=== PATIENT | female | born 1950 | race Caucasian/White ===

== ENCOUNTER → 2019-02-26 | Outpatient (CLI) | payer MEDICARE ==
--- NOTE | 2019-02-27 15:38 | CT ---
EXAMINATION TYPE: CT neck chest without con DATE OF EXAM: 02/26/2019 COMPARISON: None HISTORY: J44.9, R13.10, E04.9 CT DLP: 809 mGycm CONTRAST: Patient injected with 0 mL of Isovue 300. TECHNIQUE: Axial images at 3 mm thick sections. Reconstructed images in the coronal plane and sagitt al plane are reviewed. FINDINGS: Limited CT sections are obtained the lung apices. Left apical mass is present. See CT ches t same date. Port below. CT neck: The torus tubarius and fossa of Rosenmuller are normal. Clinical Documentation Nurse spaces are normal. Para nasal sinuses and mastoid air cells are clear. Parotid glands appear normal and symmetrical. Submandibular glands, are normal. There is a 2.4 cm m ass in the left parapharyngeal space compatible with a large lymph node. A few small scattered lymph nodes are present. There is a posterior triangle lymph node which is enlarged posterior to the sterno cleidomastoid muscle with a transverse dimension 1.6 cm which is enlarged. Series 18 image 51. Latera l left supraclavicular adenopathy is present measuring 1.8 cm. Series 18 image 45. The hypopharynx appears within normal limits. Vocal cord level appear symmetrical. Artery is displaced by a large left apical mass and left supraclavicular lymph node Osseous structures are normal. IMPRESSIONS: 1. Left neck supraclavicular adenopathy extending towards the skull base. 2. Left apical mass. EXAMINATION TYPE: CT neck chest without con DATE OF EXAM: 02/26/2019 COMPARISON: None HISTORY: J44.9, R13.10, E04.9 CT DLP: 809 mGycm, Automated exposure control for dose reduction was used. CONTRAST: Performed injected with 0 mL of Isovue 300. TECHNIQUE: Axial images were obtained at 5 mm thick sections. Reconstructed images are reviewed on [facility] computer in the coronal plane. FINDINGS: Portion of the thyroid visualized is normal. Adjacent to the left lobe thyroid is a markedl y enlarged soft tissue density likely a lymph node measuring 4.1 cm in AP dimension. Series 7 image 6 . There is a large left anterior medial lung mass extending into the mediastinum. This is adjacent to t aortic arch and appears to extend through the aortopulmonic window and this is estimated to measur e 9.0 cm transverse by 11.7 cm AP by 1.7 cm in craniocaudal dimension. There is a 1.0 cm pretracheal lymph node evident. A 0.9 cm lymph node is in the pretracheal space cl oser to the yony. A 1.5 cm lymph node is in the subcarinal region. Studies without oral contrast li miting evaluation for hilar adenopathy. Some mild right apical thickening is present. There is a 0.5 cm pleural-based nodule in the periphery of the posterior lateral left apex. Series 8 image 11. Emphysematous changes are. The ascending aorta diameter at the level of the main pulmonary artery is 2.1 cm. The main pulmonary artery diameter at the bifurcation is 2.[address] sections are obtained through the upper abdomen. Abdomen is essentially unremarkable. IMPRESSIONS: 1. Large left apical mass with extension into the mediastinum. Mediastinal lymphadenopathy appears to be present. Findings are suspicious for neoplasm with metastatic disease. 2. Large left supraclavicular adenopathy.
== END | disposition home or self-care (01) ==
LOC: RADCTMAIN 15:35
PROVIDERS: ATTEND Family Medicine
DX: R59.0 Localized enlarged lymph nodes (principal); R13.10 Dysphagia, unspecified; J44.1 Chronic obstructive pulmonary disease with (acute) exacerbation
CPT/HCPCS: 70490; 71250

== ENCOUNTER 2019-03-09 01:26 | Inpatient (IN) | payer MEDICARE ==
[2019-03-09] MEDS ORDERED: SODIUM CHLORIDE 0.9% 1,000 ML IV STA (01:46)
--- NOTE | 2019-03-09 01:49 | ED ---
General Adult HPI - General Chief complaint: Weakness Stated complaint: Abdominal pain; weakness Time Seen by Provider: 03/09/19 01:36 Source: patient, EMS Mode of arrival: EMS Limitations: no limitations - History of Present Illness Initial comments: Dictation was produced using [employer] dictation software. please excuse any grammatical, word or spelling errors. Chief Complaint: 68-year-old female presents with shortness of breath, nausea vomiting diarrhea and epigastric abdominal pain the last few weeks. History of Present Illness: 68-year-old female she presents with several days of shortness of breath, worsening generalized weakness nausea vomiting and abdominal pain. Patient states that she was brought here by EMS. Her son called EMS. Patient states that she was in bed and felt too weak and unable to get up. Patient reports epigastric abdominal pain nausea and vomiting. She states her emesis is nonbilious not bloody. Patient also claims of shortness of breath. Patient has a history of COPD. She denies any other comorbidities. Denies any focal neurologic deficits. The ROS documented in this emergency department record has been reviewed and confirmed by me. Those systems with pertinent positive or negative responses have been documented in the HPI. All other systems are other negative and/or noncontributory. PHYSICAL EXAM: General Impression: Alert and oriented x3, not in acute distress HEENT: Normocephalic atraumatic, extra-ocular movements intact, pupils equal and reactive to light bilaterally, mucous membranes moist. Cardiovascular: Heart regular rate and rhythm, S1&S2 audible, no murmurs, rubs or gallops Chest: Diminished lung sounds on the left Abdomen: Bowel sounds present, abdomen soft, tenderness to the bilateral upper quadrants worse in the epigastric area, Musculoskeletal: Pulses present and equal in all extremities, no peripheral edema Motor: no focal deficits noted Neurological: CN II-XII grossly intact, no focal motor or sensory deficits noted Skin: Intact with no visualized rashes ED course: 68-year-old female presents with multiple complaints. Her chief complaints today are shortness of breath, generalized weakness nausea vomiting and abdominal pain. Upon arrival shows heart rate of 120, rest of vital signs within acceptable limits. Return evaluation obtained. Mild leukocytosis of 11.5, coag panel unremarkable. Metabolic panel is within acceptable limits. Thyroid studies are normal. Chest x-ray shows large mass at the left pulmonary hilum with malignancy that appears worse compared to last exam. Computed tomography scan just was ordered showing large left-sided chest mass. Patient has not received treatment for this mass. Clinical presentation we'll have patient admitted with consultation to pulmonology and oncology. - Related Data Home Medications Medication Instructions Recorded Confirmed Albuterol Inhaler [Ventolin Hfa 1 - 2 puff INHALATION BID 10/31/14 12/23/14 Inhaler] Fluticasone/Salmeterol [Advair 1 puff INHALATION BID 10/31/14 12/23/14 250-50 Diskus] Albuterol Nebulizer(Dose Unknown) 1 applicate INHALATION Q6HR PRN 12/09/14 12/23/14 Prevacid (Unknown Dose) 1 tab PO DIRECTED PRN 12/22/14 12/23/14 Previous Rx's Medication Instructions Recorded HYDROcodone/APAP 7.5-325MG [[place] 1 each PO Q4H PRN #60 tab 12/23/14 7.5] Allergies Allergy/AdvReac Type Severity Reaction Status Date / Time egg Allergy Nausea Verified 12/22/14 08:49 Penicillins Allergy Dyspnea Verified 12/22/14 08:49 Iodinated Contrast Media AdvReac Unknown Verified 03/09/19 03:29 Review of Systems ROS Statement: Those systems with pertinent positive or pertinent negative responses have been documented in the HPI. ROS Other: All systems not noted in ROS Statement are negative. Past Medical History Past Medical History: COPD History of Any Multi-Drug Resistant Organisms: None Reported Additional Past Surgical History / Comment(s): "i had jaw surgery" Past Anesthesia/Blood Transfusion Reactions: No Reported Reaction Past Psychological History: No Psychological Hx Reported Smoking Status: Former smoker Past Alcohol Use History: None Reported Past Drug Use History: None Reported General Exam Limitations: no limitations Course Vital Signs 03/09/19 03/09/19 01:32 03:39 Temperature 97.8 F Pulse Rate 120 H 107 H Respiratory 18 19 Rate Blood Pressure 104/64 97/58 O2 Sat by Pulse 92 L 95 Oximetry Medical Decision Making - Lab Data Result diagrams: 03/09/19 02:32 03/09/19 02:32 Lab Results 03/09/19 03/09/19 03/09/19 Range/Units 02:32 02:32 02:32 WBC 11.5 H (3.8-10.6) k/uL RBC 4.85 (3.80-5.40) m/uL Hgb 14.2 (11.4-16.0) gm/dL Hct 45.3 (34.0-46.0) % MCV 93.3 (80.0-100.0) fL MCH 29.2 (25.0-35.0) pg MCHC 31.3 (31.0-37.0) g/dL RDW 13.5 (11.5-15.5) % Plt Count 266 (150-450) k/uL Neutrophils % 78 % Lymphocytes % 9 % Monocytes % 8 % Eosinophils % 1 % Basophils % 2 % Neutrophils # 9.0 H (1.3-7.7) k/uL Lymphocytes # 1.0 (1.0-4.8) k/uL Monocytes # 0.9 (0-1.0) k/uL Eosinophils # 0.2 (0-0.7) k/uL Basophils # 0.2 (0-0.2) k/uL PT 11.6 (9.0-12.0) sec INR 1.1 (<1.2) APTT 25.6 (22.0-30.0) sec Sodium 137 (137-145) mmol/L Potassium 4.6 (3.5-5.1) mmol/L Chloride 103 (98-107) mmol/L Carbon Dioxide 22 (22-30) mmol/L Anion Gap 12 mmol/L BUN 17 (7-17) mg/dL Creatinine 0.62 (0.52-1.04) mg/dL Est GFR (CKD-EPI)AfAm >90 (>60 ml/min/1.73 sqM) Est GFR (CKD-EPI)NonAf >90 (>60 ml/min/1.73 sqM) Glucose 110 H (74-99) mg/dL Calcium 9.6 (8.4-10.2) mg/dL Magnesium 2.0 (1.6-2.3) mg/dL Total Bilirubin 1.0 (0.2-1.3) mg/dL AST 98 H (14-36) U/L ALT 29 (9-52) U/L Alkaline Phosphatase 128 H (38-126) U/L Troponin I (0.000-0.034) ng/mL Total Protein 7.4 (6.3-8.2) g/dL Albumin 3.4 L (3.5-5.0) g/dL TSH (0.465-4.680) mIU/L 03/09/19 03/09/19 Range/Units 02:32 02:32 WBC (3.8-10.6) k/uL RBC (3.80-5.40) m/uL Hgb (11.4-16.0) gm/dL Hct (34.0-46.0) % MCV (80.0-100.0) fL MCH (25.0-35.0) pg MCHC (31.0-37.0) g/dL RDW (11.5-15.5) % Plt Count (150-450) k/uL Neutrophils % % Lymphocytes % % Monocytes % % Eosinophils % % Basophils % % Neutrophils # (1.3-7.7) k/uL Lymphocytes # (1.0-4.8) k/uL Monocytes # (0-1.0) k/uL Eosinophils # (0-0.7) k/uL Basophils # (0-0.2) k/uL PT (9.0-12.0) sec INR (<1.2) APTT (22.0-30.0) sec Sodium (137-145) mmol/L Potassium (3.5-5.1) mmol/L Chloride (98-107) mmol/L Carbon Dioxide (22-30) mmol/L Anion Gap mmol/L BUN (7-17) mg/dL Creatinine (0.52-1.04) mg/dL Est GFR (CKD-EPI)AfAm (>60 ml/min/1.73 sqM) Est GFR (CKD-EPI)NonAf (>60 ml/min/1.73 sqM) Glucose (74-99) mg/dL Calcium (8.4-10.2) mg/dL Magnesium (1.6-2.3) mg/dL Total Bilirubin (0.2-1.3) mg/dL AST (14-36) U/L ALT (9-52) U/L Alkaline Phosphatase (38-126) U/L Troponin I <0.012 (0.000-0.034) ng/mL Total Protein (6.3-8.2) g/dL Albumin (3.5-5.0) g/dL TSH 2.410 (0.465-4.680) mIU/L Disposition Clinical Impression: Dyspnea Disposition: ADMITTED IP TO THIS HOSP Referrals: Ghanshyam Romero DO [Primary Care Provider] - 1-2 days Decision Time: 04:24
[2019-03-09] MEDS ORDERED: RX INFO: IV CONTRAST WAS GIVEN 1 EACH MISC MISCELLANE PRN (02:14)
--- NOTE | 2019-03-09 02:23 | XR ---
EXAMINATION TYPE: XR chest 2V DATE OF EXAM: 03/09/2019 COMPARISON: 10/16/2018 HISTORY: Difficulty breathing TECHNIQUE: Frontal and lateral views of the chest are obtained. FINDINGS: There is significant widening of the mediastinum with increased density obscuring the aort ic arch. There is left pleural effusion. There is large masslike density at the left pulmonary hilum. This extends into the left upper lobe. The right lung is fairly clear. There is mild pleural thicken ing at the lung apices unchanged. IMPRESSION: Large mass at the left pulmonary hilum consistent with malignancy that is a change alma red to last exam. No heart failure. Small left pleural effusion and left basilar atelectasis is new c ompared to last exam.
[2019-03-09 02:45] LABS: Basophils # (A) 0.2 k/uL (0-0.2); Basophils % (A) 2 %; Eosinophils # (A) 0.2 k/uL (0-0.7); Eosinophils % (A) 1 %; HCT 45.3 % (34.0-46.0); HGB 14.2 gm/dL (11.4-16.0); Lymphocytes % (A) 9 %; MCH 29.2 pg (25.0-35.0); MCHC 31.3 g/dL (31.0-37.0); MCV 93.3 fL (80.0-100.0); Mean Platelet Volume 7.1; Monocytes # (A) 0.9 k/uL (0-1.0); Monocytes % (A) 8 %; Neutrophils % (A) 78 %; Platelet Count 266 k/uL (150-450); RBC 4.85 m/uL (3.80-5.40); RDW 13.5 % (11.5-15.5); WBC 11.5 k/uL (3.8-10.6)
[2019-03-09 02:54] LABS: African American GFR (CKD) >90 (>60 ml/min/1.73 sqM); Albumin 3.4 g/dL (3.5-5.0); Anion Gap 12 mmol/L; Blood Urea Nitrogen 17 mg/dL (7-17); Calcium 9.6 mg/dL (8.4-10.2); Carbon Dioxide 22 mmol/L (22-30); Chloride 103 mmol/L (98-107); Glucose 110 mg/dL (74-99); Sodium 137 mmol/L (137-145); Total Protein 7.4 g/dL (6.3-8.2)
[2019-03-09 03:05] LABS: INR 1.1 (<1.2); Partial Thromboplastin Time 25.6 sec (22.0-30.0); Prothrombin Time 11.6 sec (9.0-12.0)
[2019-03-09 03:22] LABS: ALT 29 U/L (9-52); AST 98 U/L (14-36); Alkaline Phosphatase 128 U/L (38-126); Potassium 4.6 mmol/L (3.5-5.1)
[2019-03-09] MEDS ORDERED: diphenhydrAMINE 50 MG/ML 1 ML VIAL IVP STA ×2 (03:29→10:41)
[2019-03-09] MEDS ORDERED: methylPREDNISolone SOD SUCCI 125 MG/2 ML VIAL IV STA ×2 (03:30→10:41)
[2019-03-09] MEDS ORDERED: FAMOTIDINE 20 MG/2 ML VIAL IV STA ×2 (03:30→10:41)
--- NOTE | 2019-03-09 04:14 | CT ---
EXAMINATION TYPE: CT chest w con DATE OF EXAM: 03/09/2019 COMPARISON: HISTORY: Evaluate mass, Sob, Chest Pain CT DLP: 328.30 mGycm Automated exposure control for dose reduction was used. CONTRAST: CT scan of the chest is performed with IV Contrast, patient injected with 100 mL of Isovue 300. FINDINGS: There is a 9.6 x 13.5 cm mass involving the left side of the mediastinum extending from the left lung apex to the left pulmonary hilum. There is encasement of the left subclavian artery and the left car otid artery. There is some tracheal deviation slightly to the right side. There is encasement of the trachea. There is subcarinal mass extension. There is narrowing of the left upper and left lower lobe pulmonary arteries encased by tumor mass. There is extensive infiltrate in the lingula left upper lo be. There is left pleural effusion. There is diffuse pulmonary emphysema. There is mild pleural thick ening at the right lung apex. There is no evidence of pulmonary mass on the right side. There is narr owing of the left upper lobe bronchus which appears essentially occluded. There is also significant n arrowing of the bronchus in the lingula left upper lobe. I see no filling defects in the pulmonary ar teries. Thoracic aorta shows no aneurysm or dissection. There is elevated left diaphragm consistent w ith atelectasis. There is no adrenal mass. Mass extends into the base of the neck on the left side. S uperior extent of the mass not included on the exam. The bony thorax appears intact. There are multiple low-density areas throughout the visualized liver consistent with metastatic disea se. The largest is in the left hepatic lobe and measures 8 cm. IMPRESSION: Large left side chest mass consistent with primary tumor probably of the left upper lobe with encasement of the vessels as above. Also consider lymphoma. This appears unchanged compared to CT scan 02/26/2019. Hepatic metastatic disease.
[2019-03-09] MEDS ORDERED: NALOXONE 0.4 MG/ML 1 ML VIAL IV PRN (04:20)
[2019-03-09] MEDS: SODIUM CHLORIDE 0.9% 1,000 ML IV SCH (05:01)
--- NOTE | 2019-03-09 09:54 | P.CONS ---
History of Present Illness - Reason for Consult Consult date: 03/09/19 lung mass Requesting physician: Osmin Gregory - Chief Complaint SOB, vomiting - History of Present Illness Ms. Tellez is a very pleasant 68-year-old female patient of primary care Dr. Romero who has COPD, quitting smoking 20 years ago after smoking for about 25 years. She states she noticed a change in her health about 8 months ago. These were vague, mild symptoms including shortness of breath, fatigue, occasional upset stomach. In the last 3 months symptoms became persistent and progressive including dysphagia and occasional choking on foods and fluids, her voice become hoarse and now is only a whisper, she has lost 70 pounds. RAJAN/shortness of breath and vomiting worsened over the last several days and brought her to the hospital for evaluation. She was being worked up out patient for her complaints. On 02/[address] of the neck and chest revealing a JOHANN lung mass extending into the mediastinum, supraclavicular, and mediastinal adenopathy. I believe that were already plans for biopsy. CT of the chest on admission shows a 9.6 x 13.5 cm mass in the left chest. CBC and CMP are unremarkable. Vital signs are stable. Patient denies any chills, chest pain, hemoptysis, abdominal pain or cramping, acute changes in her bowel or bladder habits, swelling in the legs, unusual bruising, new or unexplained pains. Patient states she does feel better than on admit. Review of Systems 14 point review of systems is negative except as stated in HPI Past Medical History Past Medical History: COPD Additional Past Medical History / Comment(s): emphysema History of Any Multi-Drug Resistant Organisms: None Reported Past Surgical History: Cholecystectomy Additional Past Surgical History / Comment(s): "i had jaw surgery", cataracts Past Anesthesia/Blood Transfusion Reactions: No Reported Reaction Past Psychological History: No Psychological Hx Reported Smoking Status: Former smoker Past Alcohol Use History: None Reported Past Drug Use History: None Reported Medications and Allergies Home Medications Medication Instructions Recorded Confirmed Type No Known Home Medications 03/09/19 03/09/19 History Allergies Allergy/AdvReac Type Severity Reaction Status Date / Time egg Allergy Nausea Verified 03/09/19 08:00 Penicillins Allergy Dyspnea Verified 03/09/19 08:00 Iodinated Contrast Media AdvReac Unknown Verified 03/09/19 08:00 Physical Exam Vitals: Vital Signs Temp Pulse Pulse Resp BP BP Pulse Ox 03/09/19 07:00 97.9 F 101 H 16 111/72 95 03/09/19 05:22 97.7 F 103 H 20 108/73 95 03/09/19 05:01 99 18 101/66 98 03/09/19 03:39 107 H 19 97/58 95 03/09/19 01:32 97.8 F 120 H 18 104/64 92 L Intake and Output 03/08/19 03/09/19 03/09/19 22:59 06:59 14:59 Intake Total 200 Balance 200 Intake: Oral 200 Other: Weight 72.575 kg - Constitutional General appearance: cooperative, no acute distress, obese - EENT Eyes: anicteric sclerae, edentulous, EOMI ENT: hearing grossly normal, normal oropharynx - Neck Left posterior cervical lymphadenopathy, likely several, 2 cm, hard, fixed area Neck: lymphadenopathy - Respiratory Respiratory: right: diminished (Consistent with COPD) - Cardiovascular Rhythm: regular Heart sounds: normal: S1, S2 Abnormal Heart Sounds: no systolic murmur, no diastolic murmur, no rub, no S3 Gallop, no S4 Gallop, no click, no other leg Peripheral Edema: bilateral: None - Gastrointestinal General gastrointestinal: no absent bowel sounds, no decreased bowel sounds, no distended, no hepatomegaly, no hyperactive bowel sounds, normal bowel sounds, no organomegaly, no rigid, no scaphoid, soft, no splenomegaly, no tenderness, no umbilical hernia, no ventral hernia - Integumentary Integumentary: normal - Neurologic Suspect vagal nerve impingement based on patient's reported symptoms and loss of voice Neurologic: CNII-XII intact - Musculoskeletal Musculoskeletal: strength equal bilaterally - Psychiatric Psychiatric: A&O x's 3, appropriate affect, intact judgment & insight Results CBC & Chem 7: 03/09/19 02:32 03/09/19 02:32 Labs: Abnormal Lab Results - Last 24 Hours (Table) 03/09/19 03/09/19 Range/Units 02:32 02:32 WBC 11.5 H (3.8-10.6) k/uL Neutrophils # 9.0 H (1.3-7.7) k/uL Glucose 110 H (74-99) mg/dL AST 98 H (14-36) U/L Alkaline Phosphatase 128 H (38-126) U/L Albumin 3.4 L (3.5-5.0) g/dL Chest x-ray: report reviewed CT scan - chest: report reviewed Assessment and Plan (1) Mass of left lung Current Visit: Yes Status: Acute Priority: High Code(s): R91.8 - OTHER NONSPECIFIC ABNORMAL FINDING OF LUNG FIELD SNOMED Code(s): 788653031 (2) Cervical adenopathy Current Visit: Yes Status: Acute Priority: High Code(s): R59.0 - LOCALIZED ENLARGED LYMPH NODES SNOMED Code(s): 466064313 Plan: Dr. Zhao reviewed with the patient that imaging, signs and symptoms on presentation are all very concerning and most suspicious for malignancy. He reviewed the workup to include Pulmonary evaluation and biopsy (from review of the chart it sounds as though this was planned but, unfortunately the patient ended up in the hospital for persistent symptoms), staging MRI of the brain and PET scan outpatient. Due to patient's complaints of difficulty swallowing, the changes in her voice and occasional choking there is concern for possibly vagal nerve impingement from tumor, swallow evaluation is been ordered to determine if there is aspiration and if patient requires a thickened diet. Patient verbalized understanding the plan. Patient does have sons home that can bring her to and from appointments. Case was discussed with Internal Medicine Doctor attests: I performed a history and physical examination of this patient, developed impression and plan of care. Discussed with dictator. I agree with dictators note, documented as a scribe.
[2019-03-09] MEDS ORDERED: IPRATROPIUM-ALBUTEROL 3 ML NEB INHALATION PRN (13:09)
--- NOTE | 2019-03-09 13:13 | P.HPIM ---
History of Present Illness H&P Date: 03/09/19 Chief Complaint: Hoarseness with increased shortness of breath, vomiting This is 68-year-old female, nicotine dependent-meterman for greater than 25 years , history of COPD, emphysema, presented to the ER with worsening shortness of breath, hoarseness, nausea/vomiting, increased weakness times a few days. Reports progressive worsening of dysphagia/choking on both food/liquids, a 70 pound weight loss in the last 3 months, loss of voice now down to a whisper. Denies hemoptysis .Patient recently diagnosed with large left apical mass extending into the mediastinum with mediastinal lymphadenopathy, large left supraclavicular adenopathy per outpatient CT on . PCP had arranged for patient to follow-up with pulmonary for further follow-up including biopsy. Patient had not yet seen pulmonary outpatient. Chest x-ray reported large mass in the left pulmonary hilum with malignancy appearing worse compared to prior exam. CT on admission reported large left-sided chest mass, 9.6X 13.5 cm, consistent with primary tumor of the left upper lobe with encasement of the left subclavian artery, left carotid artery, and trachea with subcarinal mass extension, narrowing of the left upper and left lower lobe pulmonary arteries encased by tumor mass, extensive infiltrate in the left upper lobe lingula, narrowing of the left upper lobe bronchus which appears essentially occluded with significant narrowing of the bronchus in the lingula and left upper lobe. No aneurysm or dissection , elevated left diaphragm consistent with atelectasis , mass extends to the base of the neck, left side. Multiple low-density areas throughout the liver consistent with metastatic disease, largest in the left hepatic lobe measuring 8 cm.Pulmonary and oncology consulted. Speech therapy consulted for swallow evaluation. VSS. Afebrile, mild elevation in WBC, 11.5.CBC, CMP unremarkable with the exception of mild elevation of AST, alk phos. Denies any chest pain, palpitations. Review of Systems ROS Statement: Those systems with pertinent positive or pertinent negative responses have been documented in the HPI. ROS Other: All systems not noted in ROS Statement are negative. Past Medical History Past Medical History: COPD Additional Past Medical History / Comment(s): emphysema History of Any Multi-Drug Resistant Organisms: None Reported Past Surgical History: Cholecystectomy Additional Past Surgical History / Comment(s): "i had jaw surgery", cataracts Past Anesthesia/Blood Transfusion Reactions: No Reported Reaction Past Psychological History: No Psychological Hx Reported Smoking Status: Former smoker Past Alcohol Use History: None Reported Past Drug Use History: None Reported Medications and Allergies Home Medications Medication Instructions Recorded Confirmed Type No Known Home Medications 03/09/19 03/09/19 History Allergies Allergy/AdvReac Type Severity Reaction Status Date / Time egg Allergy Nausea Verified 03/09/19 08:00 Penicillins Allergy Dyspnea Verified 03/09/19 08:00 Iodinated Contrast Media AdvReac Unknown Verified 03/09/19 08:00 Physical Exam Vitals: Vital Signs Temp Pulse Pulse Resp BP BP Pulse Ox 03/09/19 07:00 97.9 F 101 H 16 111/72 95 03/09/19 05:22 97.7 F 103 H 20 108/73 95 03/09/19 05:01 99 18 101/66 98 03/09/19 03:39 107 H 19 97/58 95 03/09/19 01:32 97.8 F 120 H 18 104/64 92 L Intake and Output 03/08/19 03/09/19 03/09/19 22:59 06:59 14:59 Intake Total 200 Balance 200 Intake: Oral 200 Other: Weight 72.575 kg PHYSICAL EXAM: VITAL SIGNS: As above GENERAL: Sitting up in bed, weak appearing, whispering/hoarse HEENT: Conjunctivae normal. eyes normal. Voice hoarse-whispering NECK: No JVD. No thyroid enlargement. Left posterior cervical lymphadenopathy with mild trachea deviation to the right. CARDIOVASCULAR: S1, S2 regular. No murmur RESPIRATION: Breath sounds diminished in the bases. No rhonchi or crackles. No bronchial breathing. ABDOMEN: Soft, nontender . No guarding. no masses palpable. No ascites, No hepatosplenomegaly.Bowel sounds heard. LEGS: No edema. no swelling PSYCHIATRY: Alert and oriented X3, mood and affect normal. NERVOUS SYSTEM: Cranial N 2-12 grossly normal. Moves all 4 limbs. Diffuse weakness No focal deficits. Strength and sensation grossly intact. Skin: no rash Results CBC & Chem 7: 03/09/19 02:32 03/09/19 02:32 Labs: Abnormal Lab Results - Last 24 Hours (Table) 03/09/19 03/09/19 Range/Units 02:32 02:32 WBC 11.5 H (3.8-10.6) k/uL Neutrophils # 9.0 H (1.3-7.7) k/uL Glucose 110 H (74-99) mg/dL AST 98 H (14-36) U/L Alkaline Phosphatase 128 H (38-126) U/L Albumin 3.4 L (3.5-5.0) g/dL Thrombosis Risk Factor Assmnt - Choose All That Apply Any of the Below Risk Factors Present?: Yes Each Factor Represents 1 point: Abnormal pulmonary function (COPD), Medical pt on bed rest, Obesity (BMI >25) Other Risk Factors: Yes Each Risk Factor Represents 2 Points: Age 61-74 years Other congenital or acquired thrombophilia - If yes, enter type in comment: No Thrombosis Risk Factor Assessment Total Risk Factor Score: 5 Thrombosis Risk Factor Assessment Level: High Risk Assessment and Plan Assessment: -Dyspnea, large left-sided chest mass consistent with primary tumor of left upper lobe, with suspected metastases to the liver as per CT -Cervical adenopathy -Acute on chronic COPD, emphysema -Acute hypoxic respiratory failure secondary to the above -Ongoing, long-term nicotine dependence -Dysphagia, suspect tumor involvement -Hypoalbuminemia Plan: Continue current medication regime ,monitoring and symptomatic treatment. Evaluated by oncology with recommendations noted and appreciated. Pulmonary consult in place / biopsy pending. Speech therapy consulted for swallow evaluation. Home meds currently not listed.Outpatient MRI of the brain and PET scan. Prognosis guarded given multiple complex medical issues. The impression and plan of care has been dictated as directed. : I performed a history and examination of this patient, discussed the same with the dictator. I agree with the dictator's note ,documented as a scribe. Any additional findings or plans will be noted.
--- NOTE | 2019-03-09 15:45 | US ---
EXAMINATION TYPE: US thyroid st tissue head/neck DATE OF EXAM: 03/09/2019 COMPARISON: CT chest 03/09/2019, CT chest and neck 02/26/2019 CLINICAL HISTORY: left neck u/s to assess mass for biopsy.. Neck neck mass lateral to thyroid Left neck scanned. Large lobular appearing vascular mass seen lateral to CCA - 6.8 x 4.0 x 4.6 cm. Suboptimal visualization of inferior aspect of mass due to location. Contralateral image taken. IMPRESSION: 1. Large mass lateral to the left common carotid artery
[2019-03-09] MEDS: IPRATROPIUM-ALBUTEROL 3 ML NEB INHALATION SCH ×2 (16:21→19:33)
--- NOTE | 2019-03-09 16:43 | P.CNPUL ---
History of Present Illness Consult date: 03/09/19 Requesting physician: Johnny Lopez Reason for consult: dyspnea, lung mass, abnormal CXR/CT Chief complaint: Shortness of breath, nausea, vomiting, diarrhea, weight loss, pulmonary mas History of present illness: This is a 68-year-old white female patient of Dr. Romero with past medical history of COPD, who is a former smoker, who came into the hospital on 03/09/2019 at 1:30 in the morning per EMS for complaints of increasing shortness of breath, nausea, vomiting diarrhea, epigastric abdominal discomfort. In addition patient reports significant weight loss, 70 pounds since November 2018, voice hoarseness, and increasing left neck mass. Patient reports inability to eat, because she is having choking episodes with all consistencies, she reports sensation of food getting stuck in her esophagus, and has been nauseous. She has a very weak cough, and her voice is now a whisper. Chest x-ray was completed on 03/09/2019 showing a large mass at the left pulmonary hilum consistent with malignancy which was a change from her previous chest x-ray from September 2018. Also showed small left pleural effusion and left basilar atelectasis. CT of the chest with contrast was completed showing large left-sided chest mass consistent with primary tumor in the left upper lobe with encasement of the pulmonary arteries. There is extensive infiltrate in the lingula left upper lobe, and left pleural effusion. And at there is a background of diffuse pulmonary emphysema. Ears no evidence of pulmonary mass on the right side. Lab work was reviewed showing white blood cell count of 11.5, hemoglobin of 14.2, relation profile was within normal limits, electrolytes and renal profile were within normal limits. Troponin was negative. Patient is afebrile, she is on 2 L of oxygen with a pulse ox of 96%, asked to see the patient in evaluation for the left upper lobe mass Review of Systems All systems: negative Constitutional: Reports anorexia, Reports poor appetite, Reports weakness, Reports weight loss, Denies chills, Denies fever Eyes: denies blurred vision, denies pain Ears, nose, mouth and throat: Reports dysphagia, Reports hoarseness, Reports neck fullness/pressure, Reports voice changes, Denies headache, Denies sore throat Cardiovascular: Denies chest pain, Denies shortness of breath Respiratory: Reports dyspnea, Denies cough Gastrointestinal: Denies abdominal pain, Denies diarrhea, Denies nausea, Denies vomiting Genitourinary: Denies dysuria, Denies hematuria Musculoskeletal: Denies myalgias Integumentary: Denies pruritus, Denies rash Neurological: Denies numbness, Denies weakness Psychiatric: Denies anxiety, Denies depression Endocrine: Reports weight change, Denies fatigue Past Medical History Past Medical History: COPD Additional Past Medical History / Comment(s): emphysema History of Any Multi-Drug Resistant Organisms: None Reported Past Surgical History: Cholecystectomy Additional Past Surgical History / Comment(s): "i had jaw surgery", cataracts Past Anesthesia/Blood Transfusion Reactions: No Reported Reaction Past Psychological History: No Psychological Hx Reported Smoking Status: Former smoker Past Alcohol Use History: None Reported Past Drug Use History: None Reported Medications and Allergies Home Medications Medication Instructions Recorded Confirmed Type No Known Home Medications 03/09/19 03/09/19 History Allergies Allergy/AdvReac Type Severity Reaction Status Date / Time egg Allergy Nausea Verified 03/09/19 08:00 Penicillins Allergy Dyspnea Verified 03/09/19 08:00 Iodinated Contrast Media AdvReac Unknown Verified 03/09/19 08:00 Physical Exam Vitals: Vital Signs Temp Pulse Pulse Resp BP BP Pulse Ox 03/09/19 16:15 100 03/09/19 14:55 97.5 F L 113 H 16 107/60 96 03/09/19 07:00 97.9 F 101 H 16 111/72 95 03/09/19 05:22 97.7 F 103 H 20 108/73 95 03/09/19 05:01 99 18 101/66 98 03/09/19 03:39 107 H 19 97/58 95 03/09/19 01:32 97.8 F 120 H 18 104/64 92 L Intake and Output 03/09/19 03/09/19 03/09/19 06:59 14:59 22:59 Intake Total 200 Balance 200 Intake: Oral 200 Other: # Voids 1 Weight 72.575 kg GENERAL EXAM: Alert, pleasant, 68-year-old white female, in 2 L of oxygen and the pulse ox 96%, and patient has evidence of significant voice hoarseness, down to whisper, comfortable in no apparent distress. HEAD: Normocephalic/atraumatic. EYES: Normal reaction of pupils, equal size. Conjunctiva pink, sclera white. NOSE: Clear with pink turbinates. THROAT: No erythema or exudates. NECK: Left posterior cervical lymphadenopathy with mild tracheal deviation to th e right. no JVD, no thyroid enlargement, no adenopathy. CHEST: No chest wall deformity. Symmetrical expansion. LUNGS: Equal air entry with no crackles, wheeze, rhonchi or dullness. Diminished breath sounds at the bases CVS: Regular rate and rhythm, normal S1 and S2, no gallops, no murmurs, no rubs ABDOMEN: Soft, nontender. No hepatosplenomegaly, normal bowel sounds, no guarding or rigidity. EXTREMITIES: No clubbing, no edema, no cyanosis, 2+ pulses and upper and lower extremities. MUSCULOSKELETAL: Muscle strength and tone normal. SPINE: No scoliosis or deformity SKIN: No rashes CENTRAL NERVOUS SYSTEM: Alert and oriented -3. No focal deficits, tone is normal in all 4 extremities. PSYCHIATRIC: Alert and oriented -3. Appropriate affect. Intact judgment and insight. Results - Laboratory Findings CBC and BMP: 03/09/19 02:32 03/09/19 02:32 PT/INR, D-dimer PT 11.6 sec (9.0-12.0) 03/09/19 02:32 INR 1.1 (<1.2) 03/09/19 02:32 Abnormal lab findings: Abnormal Labs 03/09/19 03/09/19 02:32 02:32 WBC 11.5 H Neutrophils # 9.0 H Glucose 110 H AST 98 H Alkaline Phosphatase 128 H Albumin 3.4 L - Diagnostic Findings Chest x-ray: report reviewed, image reviewed CT scan - chest: report reviewed, image reviewed Assessment and Plan Plan: Assessment: #1. Large left upper lung mass suspicious for primary tumor, with encasement of the left lower lobe pulmonary arteries, and narrowing of the left upper lobe bronchus with near occlusion, and significant narrowing of the bronchus and the lingula and the left upper lobe. No evidence of pulmonary embolism, there is elevation of the left diaphragm, and there is extension of the mass into the base of the neck on the left side #2. Multiple low-density areas throughout the visualized liver consistent with metastatic disease with the largest area measuring 8 cm in the left hepatic lobe #3. Left cervical lymphadenopathy #4. Voice hoarseness, intermittent weight loss of 70 pounds in the last 3 months #5. COPD #6. Former smoking history, quit smoking 20 years ago does carry 25 years of smoking #7. Dysphagia Plan: Chest x-ray and CT chest has been reviewed with the patient and her family, and there is evidence of a large left upper lobe lung mass encasing the pulmonary arteries and extension of the tumor to the Left neck and possibility of metastasis to the liver. We will consult interventional radiology for a fine- needle biopsy on the left neck area. We will consult surgery for possibility of insertion of PEG tube in view of patient's dysphagia and significant weight loss, she is being evaluated by speech therapy and she is having coughing and difficulty swallowing. PEG tube will be needed for nutritional support. Medical oncology has been consulted. Patient is unable to lie flat, and for that reason he will be difficult for the patient to lie flat for the bronchoscopy with biopsies, this was discussed with the family and patient and her family are in agreement to proceed with a fine-needle biopsy on the left neck. I performed a history & physical examination of the patient and discussed their management with my nurse practitioner, Shanell Canada. I reviewed the nurse practitioner's note and agree with the documented findings and plan of care. Lung sounds are positive for diminished breath sounds at the bases. The findings and the impression was discussed with the patient. I attest to the documentation by the nurse practitioner. Time with Patient: Greater than 30
[2019-03-10] MEDS: SODIUM CHLORIDE 0.9% 1,000 ML IV SCH (06:47)
[2019-03-10] MEDS: IPRATROPIUM-ALBUTEROL 3 ML NEB INHALATION SCH ×4 (07:50→19:56)
--- NOTE | 2019-03-10 10:35 | P.PN ---
Subjective Progress Note Date: 03/10/19 This is a 68-year-old white female patient of Dr. Romero with past medical histo ry of COPD, who is a former smoker, who came into the hospital on 03/09/2019 at 1:30 in the morning per EMS for complaints of increasing shortness of breath, nausea, vomiting diarrhea, epigastric abdominal discomfort. In addition patient reports significant weight loss, 70 pounds since November 2018, voice hoarseness, and increasing left neck mass. Patient reports inability to eat, because she is having choking episodes with all consistencies, she reports sensation of food getting stuck in her esophagus, and has been nauseous. She has a very weak cough, and her voice is now a whisper. Chest x-ray was completed on 03/09/2019 showing a large mass at the left pulmonary hilum consistent with malignancy which was a change from her previous chest x-ray from September 2018. Also showed small left pleural effusion and left basilar atelectasis. CT of the chest with contrast was completed showing large left-sided chest mass consistent with primary tumor in the left upper lobe with encasement of the pulmonary arteries. There is extensive infiltrate in the lingula left upper lobe, and left pleural effusion. And at there is a background of diffuse pulmonary emphysema. Ears no evidence of pulmonary mass on the right side. Lab work was reviewed showing white blood cell count of 11.5, hemoglobin of 14.2, relation profile was within normal limits, electrolytes and renal profile were within normal limits. Troponin was negative. Patient is afebrile, she is on 2 L of oxygen with a pulse ox of 96%, asked to see the patient in evaluation for the left upper lobe mass On today's evaluation of 03/10/2019 the patient is essentially the same as yesterday. She was having dysphagia. She managed to have some light breakfast earlier today. She did not aspirate. However, the ultimate plan is to proceed with a PEG tube insertion and this will be done by general surgery today. The patient will also have the fine-needle aspirate of the lung mass today. No other active issues for now. She is on 2 L of oxygen. She is awake and alert and she understands was happening and she is very much involved in her care. Objective - Vital Signs Vital signs: Vital Signs Temp 98.2 F 03/10/19 07:00 Pulse 94 03/10/19 08:01 Resp 16 03/10/19 07:00 BP 115/66 03/10/19 07:00 Pulse Ox 96 03/10/19 07:00 Intake & Output 03/09/19 03/10/19 03/10/19 18:59 06:59 18:59 Intake Total 200 220 Balance 200 220 Weight 72.575 kg Intake: Intake, IV Titration 220 Amount Sodium Chloride 0.9% 1, 220 000 ml @ 20 mls/hr IV . Q24H NICHOLAS Rx#:[id number] Oral 200 Other: # Voids 1 - Exam GENERAL EXAM: Alert, pleasant, 68-year-old white female, in 2 L of oxygen and the pulse ox 96%, and patient has evidence of significant voice hoarseness, down to whisper, comfortable in no apparent distress. HEAD: Normocephalic/atraumatic. EYES: Normal reaction of pupils, equal size. Conjunctiva pink, sclera white. NOSE: Clear with pink turbinates. THROAT: No erythema or exudates. NECK: Left posterior cervical lymphadenopathy with mild tracheal deviation to the right. no JVD, no thyroid enlargement, no adenopathy. CHEST: No chest wall deformity. Symmetrical expansion. LUNGS: Equal air entry with no crackles, wheeze, rhonchi or dullness. Diminished breath sounds at the bases CVS: Regular rate and rhythm, normal S1 and S2, no gallops, no murmurs, no rubs ABDOMEN: Soft, nontender. No hepatosplenomegaly, normal bowel sounds, no guarding or rigidity. EXTREMITIES: No clubbing, no edema, no cyanosis, 2+ pulses and upper and lower extremities. MUSCULOSKELETAL: Muscle strength and tone normal. SPINE: No scoliosis or deformity SKIN: No rashes CENTRAL NERVOUS SYSTEM: Alert and oriented -3. No focal deficits, tone is normal in all 4 extremities. PSYCHIATRIC: Alert and oriented -3. Appropriate affect. Intact judgment and i nsight. - Labs CBC & Chem 7: 03/09/19 02:32 03/09/19 02:32 Labs: Microbiology - Last 24 Hours (Table) 03/09/19 02:32 Blood Culture - Preliminary Blood No Growth after 24 hours Assessment and Plan Plan: #1. Large left upper lung mass suspicious for primary tumor, with encasement of the left lower lobe pulmonary arteries, and narrowing of the left upper lobe bronchus with near occlusion, and significant narrowing of the bronchus and the lingula and the left upper lobe. No evidence of pulmonary embolism, there is elevation of the left diaphragm, and there is extension of the mass into the base of the neck on the left side #2. Multiple low-density areas throughout the visualized liver consistent with metastatic disease with the largest area measuring 8 cm in the left hepatic lobe #3. Left cervical lymphadenopathy #4. Voice hoarseness, secondary to vocal cord paralysis #5. COPD #6. Former smoking history, quit smoking 20 years ago does carry 25 years of smoking #7. Dysphagia, likely due to the mass causing vocal cord paralysis and possibly some mass effect on the esophagus causing anatomic obstruction. #8 weight loss and excessive 100 pounds Plan: Proceed with a PEG tube insertion. Proceed with a fine-needle aspirate. Oncology is on the case. We'll continue to follow.
--- NOTE | 2019-03-10 11:27 | P.GSCN ---
<Neema Vides - Last Filed: 03/10/19 11:26> History of Present Illness Consult date: 03/10/19 Reason for Consult: PEG tube insertion Requesting physician: Torri Mendiola History of present illness: CHIEF COMPLAINT: PEG tube insertion HISTORY OF PRESENT ILLNESS: 68-year-old female who presented to emergency room with shortness of breath and epigastric abdominal pain. Patient was found to have a large left-sided chest mass. Patient has been experiencing dysphasia. She reports a 70 pound weight loss since November 2018. She was evaluated by speech therapy who recommended thickened liquid diet. General surgery was consulted for PEG tube placement. PAST MEDICAL HISTORY: See list. PAST SURGICAL HISTORY: See list. SOCIAL HISTORY: No illicit drug use. REVIEW OF SYSTEMS: CONSTITUTIONAL: Denies fever or chills. Reports weight loss. HEENT: Denies blurred vision, vision changes, or eye pain. Reports changes in her voice. CARDIOVASCULAR: Denies chest pain or pressure. RESPIRATORY: Reports shortness of breath prior to hospitalization. GASTROINTESTINAL: Denies abdominal pain. HEMATOLOGIC: Denies bleeding disorders. GENITOURINARY: Denies any blood in urine. SKIN: Denies pruitis. Denies rash. PHYSICAL EXAM: VITAL SIGNS: Reviewed. GENERAL: Well-developed in no acute distress. HEENT: No sclera icterus. Extraocular movements grossly intact. Moist buccal mucosa. Head is atraumatic, normocephalic. Voice is quiet and hoarse. ABDOMEN: Soft. Nondistended. Nontender. NEUROLOGIC: Alert and oriented. LABORATORY DATA: WBC 11.5. Hemoglobin 14.2. Platelet count 266. Potassium 4.6. BUN 17. Creatinine 0.62. Magnesium 2.0. IMAGIN. CT chest: Large left sided chest mass consistent with primary tumor probably of the left upper lobe with encasement of the vessels. Mass extends into the base of the neck on the left side. Multiple low-density areas throughout the visualized liver consistent with metastatic disease. 2. Ultrasound head and neck: Large mass lateral to the left common carotid artery measuring 6.8 x 4.0 x 4.6 cm. ASSESSMENT: 1. Large left lung mass extending into the neck, with encasement of left lower pulmonary arteries, narrowing of the left upper lobe brochus with near occlusion, and significant narrowing of the bronchus and the lingula and the left upper lobe. CT also reveals likely metastasis to the liver 2. Dysphagia 3. Unintentional weight loss, 70 lbs since November PLAN: Discussed PEG with patient at the bedside. She is agreeable to PEG tube but would also like to discuss it further with Dr. Jackson before proceeding. PEG tube tentatively planned for this afternoon. Keep patient NPO Nurse practitioner note has been reviewed by physician. Signing provider agrees with the documented findings, assessment, and plan of care. Past Medical History Past Medical History: COPD Additional Past Medical History / Comment(s): emphysema History of Any Multi-Drug Resistant Organisms: None Reported Past Surgical History: Cholecystectomy Additional Past Surgical History / Comment(s): "i had jaw surgery", cataracts Past Anesthesia/Blood Transfusion Reactions: No Reported Reaction Past Psychological History: No Psychological Hx Reported Smoking Status: Former smoker Past Alcohol Use History: None Reported Past Drug Use History: None Reported - Past Family History Father History Unknown: Yes Family Medical History: Unable to Obtain Medications and Allergies Home Medications Medication Instructions Recorded Confirmed Type No Known Home Medications 03/09/19 03/09/19 History Allergies Allergy/AdvReac Type Severity Reaction Status Date / Time egg Allergy Nausea Verified 03/09/19 08:00 Penicillins Allergy Dyspnea Verified 03/09/19 08:00 Iodinated Contrast Media AdvReac Unknown Verified 03/09/19 08:00 Surgical - Exam Vital Signs Temp Pulse Resp BP Pulse Ox 97.8 F 120 H 18 104/64 92 L 03/09/19 01:32 03/09/19 01:32 03/09/19 01:32 03/09/19 01:32 03/09/19 01:32 Results - Labs 03/09/19 02:32 03/09/19 02:32 Microbiology - Last 24 Hours (Table) 03/09/19 02:32 Blood Culture - Preliminary Blood No Growth after 24 hours <Sid Jackson - Last Filed: 03/10/19 14:31> History of Present Illness History of present illness: As above. Patient with significant weight loss as a result of newly identified mass suspicious for malignancy. Patient may have some component of extrinsic compression on the esophagus contributing to her weight loss. Options were reviewed with the patient and her family. We'll tentatively plan EGD and PEG tube placement tomorrow. Patient informed that navigation into the stomach through the esophagus may not be possible given the extrinsic compression. Risks of bleeding, infection, catheter malfunction, bowel injury, inability to place catheter, aspiration, anesthesia related complications were reviewed. She understands and wishes to proceed. Surgical - Exam Vital Signs Temp Pulse Resp BP Pulse Ox 97.8 F 120 H 18 104/64 92 L 03/09/19 01:32 03/09/19 01:32 03/09/19 01:32 03/09/19 01:32 03/09/19 01:32 Results - Labs 03/09/19 02:32 03/09/19 02:32 Microbiology - Last 24 Hours (Table) 03/09/19 02:32 Blood Culture - Preliminary Blood No Growth after 24 hours
--- NOTE | 2019-03-10 14:01 | US ---
ULTRASOUND GUIDED CORE BIOPSY LEFT NECK MASS: CLINICAL HISTORY: Chest and neck mass FINDINGS: The procedure was explained to the patient. The risks, complications, benefits and alternatives were discussed and any questions were answered. Informed consent was obtained. Patient was placed supin e on the ultrasound table and prepped and draped in the usual sterile fashion. Utilizing a 18-gauge core biopsy needle to passes were made into the large left neck mass. No postprocedural complications . Patient was stable throughout the procedure. Pathology is pending. All elements of maximal barrier and sterile technique were utilized. IMPRESSION: 1. Successful ultrasound guided core biopsy of a left neck mass.
--- NOTE | 2019-03-10 14:28 | CDI ---
Documentation Clarification Form Date: 03/10/2019 2:00:07 PM From: Ashley Coats RN, CCDS Admit Date: 03/09/2019 4:20:00 AM Patient Name: Heena Tellez Visit Number: [id number] Discharge Date: ATTENTION: The Clinical Documentation Specialists (CDI) and [facility] Coding Staff appreciate your assistance in clarifying documentation. Please respond to the clarification below the line at the bottom and electronically sign. The CDI & [facility] Coding staff will review the response and follow-up if needed. Please note: Queries are made part of the Legal Health Record. If you have any questions, please contact the author of this message via ITS. Dr. Ghanshyam Romero Malnutrition has been documented in the nutritional assessment and additional documentation is needed from the attending. History/Risk Factors: Left lung Mass, Possible mets to liver. COPD, Former smoker Clinical Indicators: 68-year-old female present with complaints of nausea, vomiting, diarrhea, abdominal pain, 56 lb (24 % UBW) weight loss in 3 months reported. She reports difficulty chewing and swallowing. CT scan of neck shows a left lung mass extending into neck, possible vagal nerve impairment. Her voice is hoarse voice due to vocal cord paralysis. Labs: Albumin 3.4, Protein 7.4, AST 98, Alkaline Phosphatase 128 Current BMI: 28.0 Insufficient energy intake: Yes Weight Loss: Reported 70 lbs in 3 months Treatment: NPO Dietary Consult: Yes Malnutrition, Severe protein-calorie in the content of chronic illness Tube feeding per orders Lab monitoring: CBC, Lytes, BUN, CR, Weights, free water flushes PEG Tube In your professional opinion, can you please clarify if these findings signify one of the following conditions? Mild Protein-Calorie Malnutrition Moderate Protein-Calorie Malnutrition Severe Protein-Calorie Malnutrition Malnutrition, unspecified Malnutrition following GI surgery Other condition, please specify _ Unable to determine (Last Revision: November 2018) MTDD
--- NOTE | 2019-03-10 17:24 | P.PN ---
Subjective Progress Note Date: 03/10/19 This is 68-year-old female, nicotine dependent-senior living for greater than 25 years , history of COPD, emphysema, presented to the ER with worsening shortness of breath, hoarseness, nausea/vomiting, increased weakness times a few days. Reports progressive worsening of dysphagia/choking on both food/liquids, a 70 pound weight loss in the last 3 months, loss of voice now down to a whisper. Denies hemoptysis .Patient recently diagnosed with large left apical mass extending into the mediastinum with mediastinal lymphadenopathy, large left supraclavicular adenopathy per outpatient CT on . PCP had arranged for patient to follow-up with pulmonary for further follow-up including biopsy. Patient had not yet seen pulmonary outpatient. Chest x-ray reported large mass in the left pulmonary hilum with malignancy appearing worse compared to prior exam. CT on admission reported large left-sided chest mass, 9.6X 13.5 cm, consistent with primary tumor of the left upper lobe with encasement of the left subclavian artery, left carotid artery, and trachea with subcarinal mass extension, narrowing of the left upper and left lower lobe pulmonary arteries encased by tumor mass, extensive infiltrate in the left upper lobe lingula, narrowing of the left upper lobe bronchus which appears essentially occluded with significant narrowing of the bronchus in the lingula and left upper lobe. No aneurysm or dissection , elevated left diaphragm consistent with atelectasis , mass extends to the base of the neck, left side. Multiple low-density areas throughout the liver consistent with metastatic disease, largest in the left hepatic lobe measuring 8 cm.Pulmonary and oncology consulted. Speech therapy consulted for swallow evaluation. VSS. Afebrile, mild elevation in WBC, 11.5.CBC, CMP unremarkable with the exception of mild elevation of AST, alk phos. Denies any chest pain, palpitations. 03/10/2019 yesterday unable to lie flat for MRI related to shortness of breath.lung mass Biopsy pending. Surgery consulted for PEG tube placement today. Afebrile, mild tachycardia, vital signs stable. Remains hoarse, whispering. Maintaining O2 sats in the 90s on 2 L nasal cannula. Denies pain; denies abdominal pain denies chest pain, palpitations. Objective - Vital Signs Vital signs: Vital Signs Temp 98.2 F 03/10/19 07:00 Pulse 94 03/10/19 08:01 Resp 16 03/10/19 07:00 BP 115/66 03/10/19 07:00 Pulse Ox 96 03/10/19 07:00 Intake & Output 03/09/19 03/10/19 03/10/19 18:59 06:59 18:59 Intake Total 200 220 Balance 200 220 Weight 72.575 kg Intake: Intake, IV Titration 220 Amount Sodium Chloride 0.9% 1, 220 000 ml @ 20 mls/hr IV . Q24H NICHOLAS Rx#:[id number] Oral 200 Other: # Voids 1 - Exam VITAL SIGNS: As above GENERAL: Sitting up in bed, weak appearing, HEENT: Conjunctivae normal. eyes normal. Voice hoarse-whispering NECK: No JVD. No thyroid enlargement. Left posterior cervical lymphadenopathy with mild trachea deviation to the right. CARDIOVASCULAR: S1, S2 regular. No murmur RESPIRATION: Breath sounds diminished in the bases. No rhonchi or crackles. No wheezing. ABDOMEN: Soft, nondistended, nontender . No guarding. no masses palpable. Bowel sounds heard. LEGS: No edema. no swelling PSYCHIATRY: Alert and oriented X3, mood and affect normal. NERVOUS SYSTEM: Cranial N 2-12 grossly normal. Moves all 4 limbs. Diffuse weakness No focal deficits. Strength and sensation grossly intact. Skin: no rash, no clubbing, no cyanosis Microbiology 03/09/19 02:32 Blood Blood Culture - Preliminary No Growth after 24 hours - Labs CBC & Chem 7: 03/09/19 02:32 03/09/19 02:32 Labs: Microbiology - Last 24 Hours (Table) 03/09/19 02:32 Blood Culture - Preliminary Blood No Growth after 24 hours Assessment and Plan Assessment: -Dyspnea, large left-sided chest mass consistent with primary tumor of left upper lobe, with suspected metastases to the liver as per CT -Cervical adenopathy,left -Vocal cord paralysis with hoarseness -Chronic COPD, emphysema -Acute hypoxic respiratory failure secondary to the above -Ongoing, long-term nicotine dependence -Dysphagia, suspect tumor involvement -Hypoalbuminemia with weight loss, mild to moderate protein calorie malnutrition secondary to the above Plan: Continue current medication regime ,monitoring and symptomatic treatment. Biopsy pending. PEG tube placement pending. Prognosis guarded given multiple complex medical issues. Follow closely with multiple consults. The impression and plan of care has been dictated as directed. : I performed a history and examination of this patient, discussed the same with the dictator. I agree with the dictator's note ,documented as a scribe. Any additional findings or plans will be noted.
[2019-03-10] MEDS: KETOROLAC 30 MG/ML 1 ML VIAL IVP PRN (19:53)
[2019-03-11] MEDS ORDERED: KETOROLAC 30 MG/ML 1 ML VIAL ONE (04:00)
[2019-03-11] MEDS ORDERED: SODIUM CHLORIDE 0.9% 1,000 ML BAG ONE (04:00)
[2019-03-11] MEDS: SODIUM CHLORIDE 0.9% 1,000 ML IV SCH (07:32)
[2019-03-11] MEDS: IPRATROPIUM-ALBUTEROL 3 ML NEB INHALATION SCH ×4 (07:44→19:35)
[2019-03-11 08:17] LABS: African American GFR (CKD) >90 (>60 ml/min/1.73 sqM); Anion Gap 8 mmol/L; Blood Urea Nitrogen 24 mg/dL (7-17); Calcium 9.6 mg/dL (8.4-10.2); Carbon Dioxide 27 mmol/L (22-30); Chloride 106 mmol/L (98-107); Glucose 88 mg/dL (74-99); Potassium 3.8 mmol/L (3.5-5.1); Sodium 141 mmol/L (137-145)
[2019-03-11 08:32] LABS: Basophils # (A) 0.1 k/uL (0-0.2); Basophils % (A) 1 %; Eosinophils # (A) 0.1 k/uL (0-0.7); Eosinophils % (A) 1 %; HCT 39.4 % (34.0-46.0); HGB 12.1 gm/dL (11.4-16.0); Lymphocytes # (A) 1.8 k/uL (1.0-4.8); Lymphocytes % (A) 19 %; MCH 29.3 pg (25.0-35.0); MCHC 30.8 g/dL (31.0-37.0); MCV 95.1 fL (80.0-100.0); Mean Platelet Volume 7.6; Monocytes # (A) 0.8 k/uL (0-1.0); Monocytes % (A) 9 %; Neutrophils # (A) 6.4 k/uL (1.3-7.7); Neutrophils % (A) 69 %; Platelet Count 284 k/uL (150-450); RBC 4.15 m/uL (3.80-5.40); RDW 13.6 % (11.5-15.5); WBC 9.3 k/uL (3.8-10.6)
[2019-03-11] MEDS: ACETAMINOPHEN IV (For NPO) 1,000 MG in EMPTY BAG 1 BAG IVPB SCH ×3 (09:15→21:32)
--- NOTE | 2019-03-11 11:12 | P.PN ---
Subjective Progress Note Date: 03/11/19 Principal diagnosis: In f/u today pt is feeling better, breathing is more comfortable, she is still experiencing orthopnea and is unable to lay flat for imaging. She is having a P EG tube placed later today for nutritional supplementation. No complaints regarding FNA site. Her mouth is very dry, denies any odynophagia Objective - Vital Signs Vital signs: Vital Signs Temp 98.4 F 03/11/19 07:31 Pulse 96 03/11/19 08:00 Resp 18 03/11/19 07:44 BP 114/66 03/11/19 07:31 Pulse Ox 94 L 03/11/19 07:44 Intake & Output 03/10/19 03/11/19 03/11/19 18:59 06:59 18:59 Weight 78.698 kg 86 kg Other: # Voids 1 - Constitutional General appearance: Present: cooperative, no acute distress, obese - EENT EENT Comment(s): Dry mouth, voice is barely a whisper Eyes: Present: anicteric sclerae, EOMI ENT: Present: hearing grossly normal - Neck Details: Left anterior cervical chain, a conglomeration of lymph nodes measuring about 3 cm, hard, fixed, left lateral breast area a 2 cm hard, painless mass, not fixed to the chest wall Neck: Present: lymphadenopathy - Respiratory Respiratory: right: CTA, left: diminished - Cardiovascular Rhythm: irregularly irregular Heart sounds: normal: S1, S2 - Peripheral edema leg Peripheral Edema: bilateral: None - Gastrointestinal General gastrointestinal: Present: normal bowel sounds, soft - Neurologic Neurologic Comment(s): No gross motor neuro deficits - Musculoskeletal Musculoskeletal: Present: strength equal bilaterally - Psychiatric Psychiatric: Present: A&O x's 3, appropriate affect, intact judgment & insight - Labs CBC & Chem 7: 03/11/19 06:05 03/11/19 06:05 Labs: Abnormal Lab Results - Last 24 Hours (Table) 03/11/19 03/11/19 Range/Units 06:05 06:05 MCHC 30.8 L (31.0-37.0) g/dL BUN 24 H (7-17) mg/dL Microbiology - Last 24 Hours (Table) 03/09/19 02:32 Blood Culture - Preliminary Blood No Growth after 48 hours Assessment and Plan (1) Mass of left lung Narrative/Plan: Status post FNA of the left anterior cervical chain lymph node mass. Pending pathology. PET scan is going to be scheduled for outpatient. Patient is unable to lay flat due to severe orthopnea for MRI or CT of the brain. This will be followed up in the outpatient setting. Follow-up with Dr. Zhao status post scans to discuss pathology/diagnosis, pro gnosis, treatment options. Patient verbalized understanding the plan. Current Visit: Yes Status: Acute Priority: High Code(s): R91.8 - OTHER NONSPECIFIC ABNORMAL FINDING OF LUNG FIELD SNOMED Code(s): 566050939 (2) Cervical adenopathy Current Visit: Yes Status: Acute Priority: High Code(s): R59.0 - LOCALIZED ENLARGED LYMPH NODES SNOMED Code(s): 096469970
[2019-03-11] MEDS ORDERED: IV FLUID CONTINUATION 1,000 ML IV ONE ×2 (12:01)
[2019-03-11] MEDS ORDERED: PROPOFOL 10 MG/ML 20 ML VIAL IV ONE (12:02)
[2019-03-11] MEDS ORDERED: LIDOCAINE 1% INJ 10MG/ML (20 ML MDV) ONE (12:02)
--- NOTE | 2019-03-11 12:23 | P.PCN ---
Date of Procedure: 03/11/19 Procedure(s) Performed: PREOPERATIVE DIAGNOSIS: Malnutrition POSTOPERATIVE DIAGNOSIS: Same, duodenitis PROCEDURE: EGD with PEG tube placement SURGEON: Renetta EBL: Minimal ANESTHESIA: Sedation COMPLICATIONS: None OPERATIVE PROCEDURE: The patient was placed in the supine position on the endoscopy table. The patient was sedated per anesthesia that time. The Olympus gastroscope was inserted into the oropharynx and passed under direct visualization to the region of the duodenum. No obstruction was seen. There was mild duodenitis with some granularity of the mucosa. Biopsies took place. The pylorus was widely patent. The stomach was carefully inspected. The stomach was fully insufflated with air. The abdominal wall was inspected. The light was seen shining through the abdominal wall in the left upper quadrant. This site was chosen for PEG tube placement. The area was prepped in the usual sterile fashion. This area was then localized with lidocaine. A small vertical incision was made using the scalpel. The Seldinger needle was advanced into the lumen of the stomach the wire was advanced. The wire was grasped with an endoscopic snare. The wire was pulled through the oropharynx. The catheter was then threaded over the guidewire and the guidewire and catheter were pulled anteriorly until the hub of the PEG tube catheter was seated against the anterior wall the stomach. The circular bolster was applied and tightened down. The endoscope was then readvanced into the stomach. There was no evidence of any bleeding and there was appropriate tightness on the bolster. The catheter was cut appropriately. The dual port feeding adapter was applied. DISPOSITION: Stable to recovery room
--- NOTE | 2019-03-11 14:01 | P.PN ---
Subjective Progress Note Date: 03/11/19 Principal diagnosis: Large left upper lung mass, with multiple low-density areas within the liver This is a 68-year-old white female patient of Dr. Romero with past medical history of COPD, who is a former smoker, who came into the hospital on 03/09/2019 at 1:30 in the morning per EMS for complaints of increasing shortness of breath, nausea, vomiting diarrhea, epigastric abdominal discomfort. In addition patient reports significant weight loss, 70 pounds since November 2018, voi ce hoarseness, and increasing left neck mass. Patient reports inability to eat, because she is having choking episodes with all consistencies, she reports sensation of food getting stuck in her esophagus, and has been nauseous. She has a very weak cough, and her voice is now a whisper. Chest x-ray was completed on 03/09/2019 showing a large mass at the left pulmonary hilum consistent with malignancy which was a change from her previous chest x-ray from September 2018. Also showed small left pleural effusion and left basilar atelectasis. CT of the chest with contrast was completed showing large left-sided chest mass consistent with primary tumor in the left upper lobe with encasement of the pu lmonary arteries. There is extensive infiltrate in the lingula left upper lobe, and left pleural effusion. And at there is a background of diffuse pulmonary emphysema. Ears no evidence of pulmonary mass on the right side. Lab work was reviewed showing white blood cell count of 11.5, hemoglobin of 14.2, relation profile was within normal limits, electrolytes and renal profile were within normal limits. Troponin was negative. Patient is afebrile, she is on 2 L of oxygen with a pulse ox of 96%, asked to see the patient in evaluation for the left upper lobe mass On today's evaluation of 03/10/2019 the patient is essentially the same as yesterday. She was having dysphagia. She managed to have some light breakfast earlier today. She did not aspirate. However, the ultimate plan is to proceed with a PEG tube insertion and this will be done by general surgery today. The patient will also have the fine-needle aspirate of the lung mass today. No other active issues for now. She is on 2 L of oxygen. She is awake and alert and she understands was happening and she is very much involved in her care. On 03/11/2019 patient seen in follow-up on medical surgical floor. She has just returned from her PEG tube insertion procedure, denies any acute distress, denies any shortness of breath, she is on 2 L of oxygen with a pulse ox of 93%, afebrile, hemodynamically stable, he underwent a fine-needle aspirate biopsy of the left neck mass, and the biopsy results are still pending at this time. Patient still experiencing orthopnea, and unable to lay flat. Awaiting results of the biopsy, anticipate patient has tube feedings in the next 24 hours. Objective - Vital Signs Vital signs: Vital Signs Temp 97.3 F L 03/11/19 12:50 Pulse 95 03/11/19 12:50 Resp 16 03/11/19 12:50 BP 98/64 03/11/19 12:50 Pulse Ox 93 L 03/11/19 12:53 Intake & Output 03/10/19 03/11/19 03/11/19 18:59 06:59 18:59 Intake Total 200 Balance 200 Weight 78.698 kg 86 kg Intake: IV 200 Other: # Voids 1 - Exam GENERAL EXAM: Alert, pleasant, 68-year-old white female, in 2 L of oxygen and the pulse ox 96%, and patient has evidence of significant voice hoarseness, down to whisper, comfortable in no apparent distress. HEAD: Normocephalic/atraumatic. EYES: Normal reaction of pupils, equal size. Conjunctiva pink, sclera white. NOSE: Clear with pink turbinates. THROAT: No erythema or exudates. NECK: Left posterior cervical lymphadenopathy with mild tracheal deviation to the right. no JVD, no thyroid enlargement, no adenopathy. CHEST: No chest wall deformity. Symmetrical expansion. LUNGS: Equal air entry with no crackles, wheeze, rhonchi or dullness. Diminished breath sounds at the bases CVS: Regular rate and rhythm, normal S1 and S2, no gallops, no murmurs, no rubs ABDOMEN: Soft, nontender. No hepatosplenomegaly, normal bowel sounds, no guarding or rigidity. Left upper abdomen PEG tube is covered with a surgical dressing, clean dry and intact EXTREMITIES: No clubbing, no edema, no cyanosis, 2+ pulses and upper and lower extremities. MUSCULOSKELETAL: Muscle strength and tone normal. SPINE: No scoliosis or deformity SKIN: No rashes CENTRAL NERVOUS SYSTEM: Alert and oriented -3. No focal deficits, tone is normal in all 4 extremities. PSYCHIATRIC: Alert and oriented -3. Appropriate affect. Intact judgment and insight. - Labs CBC & Chem 7: 03/11/19 06:05 03/11/19 06:05 Labs: Abnormal Lab Results - Last 24 Hours (Table) 03/11/19 03/11/19 Range/Units 06:05 06:05 MCHC 30.8 L (31.0-37.0) g/dL BUN 24 H (7-17) mg/dL Microbiology - Last 24 Hours (Table) 03/09/19 02:32 Blood Culture - Preliminary Blood No Growth after 48 hours Assessment and Plan Plan: Assessment: #1. Large left upper lung mass suspicious for primary tumor, with encasement of the left lower lobe pulmonary arteries, and narrowing of the left upper lobe bronchus with near occlusion, and significant narrowing of the bronchus and the lingula and the left upper lobe. No evidence of pulmonary embolism, there is elevation of the left diaphragm, and there is extension of the mass into the base of the neck on the left side. Ration is status post a fine-needle aspirate biopsy of the left neck mass, and the biopsy results are still pending at this time #2. Multiple low-density areas throughout the visualized liver consistent with metastatic disease with the largest area measuring 8 cm in the left hepatic lobe #3. Left cervical lymphadenopathy #4. Voice hoarseness, intermittent weight loss of 70 pounds in the last 3 months #5. COPD #6. Former smoking history, quit smoking 20 years ago does carry 25 years of smoking #7. Dysphagia, status post PEG tube insertion for nutritional support Plan: Continue current medical treatment, awaiting the results of the biopsy, PEG tube has been inserted for nutritional support, vital signs are stable, patient is unable to undergo MRI of the brain related to orthopnea, but otherwise no acute respiratory distress. We'll follow I performed a history & physical examination of the patient and discussed their management with my nurse practitioner, Shanell Canada. I reviewed the nurse practitioner's note and agree with the documented findings and plan of care. Lung sounds are positive for diminished breath sounds at the bases. The findings and the impression was discussed with the patient. I attest to the documentation by the nurse practitioner. Time with Patient: Less than 30
[2019-03-11] MEDS: KETOROLAC 30 MG/ML 1 ML VIAL IVP PRN (15:40)
--- NOTE | 2019-03-11 18:02 | P.PN ---
Subjective Progress Note Date: 03/11/19 This is 68-year-old female, nicotine dependent-residential for greater than 25 years , history of COPD, emphysema, presented to the ER with worsening shortness of breath, hoarseness, nausea/vomiting, increased weakness times a few days. Reports progressive worsening of dysphagia/choking on both food/liquids, a 70 pound weight loss in the last 3 months, loss of voice now down to a whisper. Denies hemoptysis .Patient recently diagnosed with large left apical mass extending into the mediastinum with mediastinal lymphadenopathy, large left supraclavicular adenopathy per outpatient CT on . PCP had arranged for patient to follow-up with pulmonary for further follow-up including biopsy. Patient had not yet seen pulmonary outpatient. Chest x-ray reported large mass in the left pulmonary hilum with malignancy appearing worse compared to prior exam. CT on admission reported large left-sided chest mass, 9.6X 13.5 cm, consistent with primary tumor of the left upper lobe with encasement of the left subclavian artery, left carotid artery, and trachea with subcarinal mass extension, narrowing of the left upper and left lower lobe pulmonary arteries encased by tumor mass, extensive infiltrate in the left upper lobe lingula, narrowing of the left upper lobe bronchus which appears essentially occluded with significant narrowing of the bronchus in the lingula and left upper lobe. No aneurysm or dissection , elevated left diaphragm consistent with atelectasis , mass extends to the base of the neck, left side. Multiple low-density areas throughout the liver consistent with metastatic disease, largest in the left hepatic lobe measuring 8 cm.Pulmonary and oncology consulted. Speech therapy consulted for swallow evaluation. VSS. Afebrile, mild elevation in WBC, 11.5.CBC, CMP unremarkable with the exception of mild elevation of AST, alk phos. Denies any chest pain, palpitations. 03/10/2019 yesterday unable to lie flat for MRI related to shortness of breath.lung mass Biopsy pending. Surgery consulted for PEG tube placement today. Afebrile, mild tachycardia, vital signs stable. Remains hoarse, whispering. Maintaining O2 sats in the 90s on 2 L nasal cannula. Denies pain; denies abdominal pain denies chest pain, palpitations. 03/11/2019NPO, scheduled for PEG tube placement today. Underwent biopsy yesterday, complained of left shoulder pain throughout the night, received To [facility]. Left shoulder area discomfort persists.biopsy results pending .VSS. Objective - Vital Signs Vital signs: Vital Signs Temp 98.4 F 03/11/19 07:31 Pulse 96 03/11/19 08:00 Resp 18 03/11/19 07:44 BP 114/66 03/11/19 07:31 Pulse Ox 94 L 03/11/19 07:44 Intake & Output 03/10/19 03/11/19 03/11/19 18:59 06:59 18:59 Weight 78.698 kg 86 kg Other: # Voids 1 - Exam VITAL SIGNS: As above GENERAL: Sitting up in bed, weak appearing, HEENT: Conjunctivae normal. eyes normal. whispering NECK: No JVD. No thyroid enlargement. Left posterior cervical lymphadenopathy with mild trachea deviation to the right. CARDIOVASCULAR: S1, S2 regular. No murmur RESPIRATION: Breath sounds diminished in the bases. No rhonchi or crackles. No wheezing. ABDOMEN: Soft, nondistended, nontender . No guarding. no masses palpable. Bowel sounds heard. LEGS: No edema. no swelling PSYCHIATRY: Alert and oriented X3, mood and affect normal. NERVOUS SYSTEM: Cranial N 2-12 grossly normal. Moves all 4 limbs. Diffuse weakness No focal deficits. Strength and sensation grossly intact. Skin: no rash, no clubbing, no cyanosis - Labs CBC & Chem 7: 03/11/19 06:05 03/11/19 06:05 Labs: Abnormal Lab Results - Last 24 Hours (Table) 03/11/19 03/11/19 Range/Units 06:05 06:05 MCHC 30.8 L (31.0-37.0) g/dL BUN 24 H (7-17) mg/dL Microbiology - Last 24 Hours (Table) 03/09/19 02:32 Blood Culture - Preliminary Blood No Growth after 48 hours Assessment and Plan Assessment: -Dyspnea, large left-sided chest mass consistent with primary tumor of left upper lobe, with suspected metastases to the liver as per CT -Cervical adenopathy,left -Vocal cord paralysis with hoarseness -Chronic COPD, emphysema -Acute hypoxic respiratory failure secondary to the above -Ongoing, long-term nicotine dependence -Dysphagia, suspect tumor involvement -Hypoalbuminemia with weight loss, mild to moderate protein calorie malnutrition secondary to the above Plan: Continue current medication regime ,monitoring and symptomatic treatment. Biopsy results pending. PEG tube placement pending. Prognosis guarded given multiple complex medical issues. Follow closely with multiple consults. The impression and plan of care has been dictated as directed. : I performed a history and examination of this patient, discussed the same with the dictator. I agree with the dictator's note ,documented as a scribe. Any additional findings or plans will be noted.
[2019-03-12] MEDS: KETOROLAC 30 MG/ML 1 ML VIAL IVP PRN (00:16)
[2019-03-12] MEDS: ACETAMINOPHEN IV (For NPO) 1,000 MG in EMPTY BAG 1 BAG IVPB SCH (04:09)
[2019-03-12] MEDS: SODIUM CHLORIDE 0.9% 1,000 ML IV SCH (04:23)
[2019-03-12] MEDS: IPRATROPIUM-ALBUTEROL 3 ML NEB INHALATION SCH ×4 (07:01→19:31)
[2019-03-12 07:14] LABS: Basophils % (A) 0 %; Eosinophils # (A) 0.1 k/uL (0-0.7); Eosinophils % (A) 1 %; HCT 39.3 % (34.0-46.0); HGB 12.7 gm/dL (11.4-16.0); Hypochromasia Slight; Lymphocytes # (A) 1.4 k/uL (1.0-4.8); Lymphocytes % (A) 17 %; MCH 30.4 pg (25.0-35.0); MCHC 32.3 g/dL (31.0-37.0); MCV 94.3 fL (80.0-100.0); Mean Platelet Volume 6.1; Monocytes # (A) 0.5 k/uL (0-1.0); Monocytes % (A) 6 %; Neutrophils # (A) 6.5 k/uL (1.3-7.7); Neutrophils % (A) 75 %; Platelet Count 268 k/uL (150-450); RBC 4.17 m/uL (3.80-5.40); RDW 13.2 % (11.5-15.5); WBC 8.6 k/uL (3.8-10.6)
[2019-03-12 07:24] LABS: African American GFR (CKD) >90 (>60 ml/min/1.73 sqM); Anion Gap 6 mmol/L; Blood Urea Nitrogen 19 mg/dL (7-17); Calcium 9.3 mg/dL (8.4-10.2); Carbon Dioxide 26 mmol/L (22-30); Chloride 108 mmol/L (98-107); Glucose 102 mg/dL (74-99); Potassium 3.9 mmol/L (3.5-5.1); Sodium 140 mmol/L (137-145)
[2019-03-12] MEDS: HYDROmorphone 0.5 MG/0.5 ML SYRINGE IVP PRN ×3 (11:17→19:31)
--- NOTE | 2019-03-12 13:08 | P.PN ---
<Neema Vides - Last Filed: 03/12/19 13:02> Subjective Progress Note Date: 03/12/19 CHIEF COMPLAINT: PEG tube insertion HISTORY OF PRESENT ILLNESS: Patient is status post PEG tube insertion. Patient reports she had some discomfort at the PEG tube site overnight but has since resolved. PHYSICAL EXAM: VITAL SIGNS: Reviewed. GENERAL: Well-developed in no acute distress. HEENT: No sclera icterus. Extraocular movements grossly intact. Moist buccal mucosa. Head is atraumatic, normocephalic. Voice is quiet and hoarse. ABDOMEN: Soft. Nondistended. Nontender. PEG tube intact. Dressing intact. NEUROLOGIC: Alert and oriented. ASSESSMENT: 1. Large left lung mass extending into the neck, with encasement of left lower pulmonary arteries, narrowing of the left upper lobe brochus with near occlusion, and significant narrowing of the bronchus and the lingula and the left upper lobe. CT also reveals likely metastasis to the liver 2. Dysphagia 3. Unintentional weight loss, 70 lbs since November PLAN: Begin tube feedings today per dietary recommendations Nurse practitioner note has been reviewed by physician. Signing provider agrees with the documented findings, assessment, and plan of care. Objective - Vital Signs Vital signs: Vital Signs Temp 96.3 F L 03/12/19 08:03 Pulse 92 03/12/19 10:49 Resp 18 03/12/19 08:03 BP 110/68 03/12/19 08:03 Pulse Ox 94 L 03/12/19 08:03 Intake & Output 03/11/19 03/12/19 03/12/19 18:59 06:59 18:59 Intake Total 200 Balance 200 Weight 86.4 kg Intake: IV 200 - Labs CBC & Chem 7: 03/12/19 06:52 03/12/19 06:52 Labs: Abnormal Lab Results - Last 24 Hours (Table) 03/12/19 Range/Units 06:52 Chloride 108 H (98-107) mmol/L BUN 19 H (7-17) mg/dL Glucose 102 H (74-99) mg/dL Microbiology - Last 24 Hours (Table) 03/09/19 02:32 Blood Culture - Preliminary Blood No Growth after 72 hours <Sid Jackson - Last Filed: 03/12/19 15:01> Subjective As above. Patient doing well today. Minimal pain at PEG tube site. Continue gradually increasing tube feeds. Objective - Vital Signs Vital signs: Vital Signs Temp 96.3 F L 03/12/19 08:03 Pulse 92 03/12/19 10:49 Resp 18 03/12/19 08:03 BP 110/68 03/12/19 08:03 Pulse Ox 94 L 03/12/19 08:03 Intake & Output 03/11/19 03/12/19 03/12/19 18:59 06:59 18:59 Intake Total 200 30 Balance 200 30 Weight 86.4 kg Intake: IV 200 Tube Feeding 30 - Labs CBC & Chem 7: 03/12/19 06:52 03/12/19 06:52 Labs: Abnormal Lab Results - Last 24 Hours (Table) 03/12/19 Range/Units 06:52 Chloride 108 H (98-107) mmol/L BUN 19 H (7-17) mg/dL Glucose 102 H (74-99) mg/dL Microbiology - Last 24 Hours (Table) 03/09/19 02:32 Blood Culture - Preliminary Blood No Growth after 72 hours
--- NOTE | 2019-03-12 14:26 | P.PN ---
Subjective Progress Note Date: 03/12/19 This is 68-year-old female, nicotine dependent-residential for greater than 25 years , history of COPD, emphysema, presented to the ER with worsening shortness of breath, hoarseness, nausea/vomiting, increased weakness times a few days. Reports progressive worsening of dysphagia/choking on both food/liquids, a 70 pound weight loss in the last 3 months, loss of voice now down to a whisper. Denies hemoptysis .Patient recently diagnosed with large left apical mass extending into the mediastinum with mediastinal lymphadenopathy, large left supraclavicular adenopathy per outpatient CT on . PCP had arranged for patient to follow-up with pulmonary for further follow-up including biopsy. Patient had not yet seen pulmonary outpatient. Chest x-ray reported large mass in the left pulmonary hilum with malignancy appearing worse compared to prior exam. CT on admission reported large left-sided chest mass, 9.6X 13.5 cm, consistent with primary tumor of the left upper lobe with encasement of the left subclavian artery, left carotid artery, and trachea with subcarinal mass extension, narrowing of the left upper and left lower lobe pulmonary arteries encased by tumor mass, extensive infiltrate in the left upper lobe lingula, narrowing of the left upper lobe bronchus which appears essentially occluded with significant narrowing of the bronchus in the lingula and left upper lobe. No aneurysm or dissection , elevated left diaphragm consistent with atelectasis , mass extends to the base of the neck, left side. Multiple low-density areas throughout the liver consistent with metastatic disease, largest in the left hepatic lobe measuring 8 cm.Pulmonary and oncology consulted. Speech therapy consulted for swallow evaluation. VSS. Afebrile, mild elevation in WBC, 11.5.CBC, CMP unremarkable with the exception of mild elevation of AST, alk phos. Denies any chest pain, palpitations. 03/10/2019 yesterday unable to lie flat for MRI related to shortness of breath.lung mass Biopsy pending. Surgery consulted for PEG tube placement today. Afebrile, mild tachycardia, vital signs stable. Remains hoarse, whispering. Maintaining O2 sats in the 90s on 2 L nasal cannula. Denies pain; denies abdominal pain denies chest pain, palpitations. 03/11/2019NPO, scheduled for PEG tube placement today. Underwent biopsy yesterday, complained of left shoulder pain throughout the night, received To [facility]. Left shoulder area discomfort persists.biopsy results pending .VSS. 03/12/2019 status post PEG tube placement yesterday, tolerated procedure well. Complains of discomfort at the insertion site. Left shoulder pain has resolved. Biopsy pathology pending. Vital signs stable. Maintaining O2 sats in the 90s on 2 L nasal cannula O2. Afebrile, normal WBC. Objective - Vital Signs Vital signs: Vital Signs Temp 96.3 F L 03/12/19 08:03 Pulse 92 03/12/19 10:49 Resp 18 03/12/19 08:03 BP 110/68 03/12/19 08:03 Pulse Ox 94 L 03/12/19 08:03 Intake & Output 03/11/19 03/12/19 03/12/19 18:59 06:59 18:59 Intake Total 200 Balance 200 Weight 86.4 kg Intake: IV 200 - Exam VITAL SIGNS: As above GENERAL: Sitting up in bed, no acute distress HEENT: Conjunctivae normal. eyes normal. whispering NECK: No JVD. No thyroid enlargement. Left posterior cervical lymphadenopathy with mild trachea deviation to the right. CARDIOVASCULAR: S1, S2 regular. No murmur RESPIRATION: Breath sounds diminished in the bases. No rhonchi or crackles. No wheezing. ABDOMEN: Soft, nondistended, minimal diffuse tenderness, PEG tube present No guarding. no masses palpable. Bowel sounds heard. LEGS: No edema. no swelling PSYCHIATRY: Alert and oriented X3, mood and affect normal. NERVOUS SYSTEM: Cranial N 2-12 grossly normal. Moves all 4 limbs. Diffuse weakness, No focal deficits. Strength and sensation grossly intact. Skin: no rash, no clubbing, no cyanosis - Labs CBC & Chem 7: 03/12/19 06:52 03/12/19 06:52 Labs: Abnormal Lab Results - Last 24 Hours (Table) 03/12/19 Range/Units 06:52 Chloride 108 H (98-107) mmol/L BUN 19 H (7-17) mg/dL Glucose 102 H (74-99) mg/dL Microbiology - Last 24 Hours (Table) 03/09/19 02:32 Blood Culture - Preliminary Blood No Growth after 72 hours Assessment and Plan Assessment: -Dyspnea, large left-sided chest mass consistent with primary tumor of left upper lobe, with suspected metastases to the liver as per CT, -Cervical adenopathy,left, status post biopsy of left neck mass, pathology pending. -Vocal cord paralysis with hoarseness -Chronic COPD, emphysema -Acute hypoxic respiratory failure secondary to the above -Ongoing, long-term nicotine dependence -Dysphagia, suspect tumor involvement -Hypoalbuminemia with weight loss, mild to moderate protein calorie malnutrition secondary to the above -Status post PEG tube placement Plan: Continue current medication regime ,monitoring and symptomatic treatment. Biopsy pathology pending. PEG tube feedings to start today as per dietary recommendations. Up in chair, increase ambulation in blank with assistance. PT/OT consulted.Prognosis guarded given multiple complex medical issues. Follow closely with multiple consults. The impression and plan of care has been dictated as directed. : I performed a history and examination of this patient, discussed the same with the dictator. I agree with the dictator's note ,documented as a scribe. Any additional findings or plans will be noted.
--- NOTE | 2019-03-12 15:01 | P.PN ---
Subjective Progress Note Date: 03/12/19 Principal diagnosis: Large left upper lung mass, with multiple low-density areas within the liver This is a 68-year-old white female patient of Dr. Romero with past medical history of COPD, who is a former smoker, who came into the hospital on 03/09/2019 at 1:30 in the morning per EMS for complaints of increasing shortness of breath, nausea, vomiting diarrhea, epigastric abdominal discomfort. In addition patient reports significant weight loss, 70 pounds since November 2018, voi ce hoarseness, and increasing left neck mass. Patient reports inability to eat, because she is having choking episodes with all consistencies, she reports sensation of food getting stuck in her esophagus, and has been nauseous. She has a very weak cough, and her voice is now a whisper. Chest x-ray was completed on 03/09/2019 showing a large mass at the left pulmonary hilum consistent with malignancy which was a change from her previous chest x-ray from September 2018. Also showed small left pleural effusion and left basilar atelectasis. CT of the chest with contrast was completed showing large left-sided chest mass consistent with primary tumor in the left upper lobe with encasement of the pu lmonary arteries. There is extensive infiltrate in the lingula left upper lobe, and left pleural effusion. And at there is a background of diffuse pulmonary emphysema. Ears no evidence of pulmonary mass on the right side. Lab work was reviewed showing white blood cell count of 11.5, hemoglobin of 14.2, relation profile was within normal limits, electrolytes and renal profile were within normal limits. Troponin was negative. Patient is afebrile, she is on 2 L of oxygen with a pulse ox of 96%, asked to see the patient in evaluation for the left upper lobe mass On today's evaluation of 03/10/2019 the patient is essentially the same as yesterday. She was having dysphagia. She managed to have some light breakfast earlier today. She did not aspirate. However, the ultimate plan is to proceed with a PEG tube insertion and this will be done by general surgery today. The patient will also have the fine-needle aspirate of the lung mass today. No other active issues for now. She is on 2 L of oxygen. She is awake and alert and she understands was happening and she is very much involved in her care. On 03/11/2019 patient seen in follow-up on medical surgical floor. She has just returned from her PEG tube insertion procedure, denies any acute distress, denies any shortness of breath, she is on 2 L of oxygen with a pulse ox of 93%, afebrile, hemodynamically stable, he underwent a fine-needle aspirate biopsy of the left neck mass, and the biopsy results are still pending at this time. Patient still experiencing orthopnea, and unable to lay flat. Awaiting results of the biopsy, anticipate patient has tube feedings in the next 24 hours. On 03/12/2019 patient seen in follow-up. She is awake and alert, fairly she had a couple episodes of vomiting this morning, PEG tube was inserted yesterday, and we anticipate initiation of tube feedings today, she is strict nothing by mouth, except for some ice chips, she denies any acute distress. However she was unable to lie flat again today for MRI of the brain, so MRI of the brain was not completed, she denies any worsening dyspnea, she is on 2 L of oxygen and her pulse ox is 94%, afebrile, respirations are nonlabored, awaiting the results of the biopsy of the fine-needle biopsy of the left neck mass. Labs have been r eviewed, and are fairly unremarkable. Objective - Vital Signs Vital signs: Vital Signs Temp 96.3 F L 03/12/19 08:03 Pulse 92 03/12/19 10:49 Resp 18 03/12/19 08:03 BP 110/68 03/12/19 08:03 Pulse Ox 94 L 03/12/19 08:03 Intake & Output 03/11/19 03/12/19 03/12/19 18:59 06:59 18:59 Intake Total 200 30 Balance 200 30 Weight 86.4 kg Intake: IV 200 Tube Feeding 30 - Exam GENERAL EXAM: Alert, pleasant, 68-year-old white female, in 2 L of oxygen and the pulse ox 94%, and patient has evidence of significant voice hoarseness, down to whisper, comfortable in no apparent distress. HEAD: Normocephalic/atraumatic. EYES: Normal reaction of pupils, equal size. Conjunctiva pink, sclera white. NOSE: Clear with pink turbinates. THROAT: No erythema or exudates. NECK: Left posterior cervical lymphadenopathy with mild tracheal deviation to the right. no JVD, no thyroid enlargement, no adenopathy. CHEST: No chest wall deformity. Symmetrical expansion. LUNGS: Equal air entry with no crackles, wheeze, rhonchi or dullness. Diminished breath sounds at the bases CVS: Regular rate and rhythm, normal S1 and S2, no gallops, no murmurs, no rubs ABDOMEN: Soft, nontender. No hepatosplenomegaly, normal bowel sounds, no guarding or rigidity. Left upper abdomen PEG tube is covered with a surgical dressing, clean dry and intact EXTREMITIES: No clubbing, no edema, no cyanosis, 2+ pulses and upper and lower extremities. MUSCULOSKELETAL: Muscle strength and tone normal. SPINE: No scoliosis or deformity SKIN: No rashes CENTRAL NERVOUS SYSTEM: Alert and oriented -3. No focal deficits, tone is normal in all 4 extremities. PSYCHIATRIC: Alert and oriented -3. Appropriate affect. Intact judgment and insight. - Labs CBC & Chem 7: 03/12/19 06:52 03/12/19 06:52 Labs: Abnormal Lab Results - Last 24 Hours (Table) 03/12/19 Range/Units 06:52 Chloride 108 H (98-107) mmol/L BUN 19 H (7-17) mg/dL Glucose 102 H (74-99) mg/dL Microbiology - Last 24 Hours (Table) 03/09/19 02:32 Blood Culture - Preliminary Blood No Growth after 72 hours Assessment and Plan Plan: Assessment: #1. Large left upper lung mass suspicious for primary tumor, with encasement of the left lower lobe pulmonary arteries, and narrowing of the left upper lobe bronchus with near occlusion, and significant narrowing of the bronchus and the lingula and the left upper lobe. No evidence of pulmonary embolism, there is elevation of the left diaphragm, and there is extension of the mass into the base of the neck on the left side. Ration is status post a fine-needle aspirate biopsy of the left neck mass, and the biopsy results are still pending at this time #2. Multiple low-density areas throughout the visualized liver consistent with metastatic disease with the largest area measuring 8 cm in the left hepatic lobe #3. Left cervical lymphadenopathy #4. Voice hoarseness, intermittent weight loss of 70 pounds in the last 3 months #5. COPD #6. Former smoking history, quit smoking 20 years ago does carry 25 years of smoking #7. Dysphagia, status post PEG tube insertion for nutritional support Plan: Continue current medical treatment, awaiting results of the fine-needle biopsy of the left neck mass, antisipate initiation of tube feedings today, patient will probably be allowed to eat some pleasure feeds by mouth, maintain aspiration precautions. She was unable to lie flat again for the MRI of the brain today. May need to attempt at a later date. Continue with nebulized bronchodilators. I performed a history & physical examination of the patient and discussed their management with my nurse practitioner, Shanell Canada. I reviewed the nurse practitioner's note and agree with the documented findings and plan of care. Lung sounds are positive for diminished breath sounds at the bases. The findings and the impression was discussed with the patient. I attest to the doc umentation by the nurse practitioner. Time with Patient: Less than 30
--- NOTE | 2019-03-12 16:20 | P.PN ---
Subjective Progress Note Date: 03/12/19 Principal diagnosis: RAJAN, orthopea, lung mass In follow-up today patient is sitting up in bed, she is doing nebulizer treatment, she is not sure if she is breathing any better, she is status post a PEG tube. Objective - Vital Signs Vital signs: Vital Signs Temp 96.3 F L 03/12/19 08:03 Pulse 92 03/12/19 10:49 Resp 18 03/12/19 08:03 BP 110/68 03/12/19 08:03 Pulse Ox 94 L 03/12/19 08:03 Intake & Output 03/11/19 03/12/19 03/12/19 18:59 06:59 18:59 Intake Total 200 30 Balance 200 30 Weight 86.4 kg 86.4 kg Intake: IV 200 Tube Feeding 30 - Constitutional General appearance: Present: cooperative, no acute distress, obese - EENT Eyes: Present: anicteric sclerae, edentulous, EOMI - Respiratory Respiratory: bilateral: CTA - Cardiovascular Heart sounds: normal: S1, S2 Abnormal Heart Sounds: Present: systolic murmur - Peripheral edema leg Peripheral Edema: bilateral: None - Gastrointestinal General gastrointestinal: Present: normal bowel sounds, soft - Neurologic Neurologic: Present: CNII-XII intact - Musculoskeletal Musculoskeletal: Present: strength equal bilaterally - Psychiatric Psychiatric: Present: A&O x's 3, appropriate affect, intact judgment & insight - Labs CBC & Chem 7: 03/12/19 06:52 03/12/19 06:52 Labs: Abnormal Lab Results - Last 24 Hours (Table) 03/12/19 Range/Units 06:52 Chloride 108 H (98-107) mmol/L BUN 19 H (7-17) mg/dL Glucose 102 H (74-99) mg/dL Microbiology - Last 24 Hours (Table) 03/09/19 02:32 Blood Culture - Preliminary Blood No Growth after 72 hours Assessment and Plan (1) Mass of left lung Narrative/Plan: Status post FNA of the left anterior cervical chain lymph node mass. Pending pathology. PET scan is scheduled for outpatient next Saturday. Staff is monitoring the patient while she is in the hospital. They will contact her on discharge with instructions. At that time they will make a follow-up appointment with Dr. Zhao status post scans to discuss pathology/diagnosis, prognosis, treatment options. Patient verbalized understanding the plan. Patient is unable to lay flat due to severe orthopnea for MRI or CT of the brain. This will be followed up in the outpatient setting. Current Visit: Yes Status: Acute Priority: High Code(s): R91.8 - OTHER NONSPECIFIC ABNORMAL FINDING OF LUNG FIELD SNOMED Code(s): 781800868 (2) Cervical adenopathy Current Visit: Yes Status: Acute Priority: High Code(s): R59.0 - LOCALIZED ENLARGED LYMPH NODES SNOMED Code(s): 778630869
[2019-03-13] MEDS: HYDROmorphone 0.5 MG/0.5 ML SYRINGE IVP PRN ×3 (00:20→10:42)
[2019-03-13] MEDS: SODIUM CHLORIDE 0.9% 1,000 ML IV SCH (04:45)
[2019-03-13] MEDS: IPRATROPIUM-ALBUTEROL 3 ML NEB INHALATION SCH ×4 (07:04→19:16)
[2019-03-13 08:50] LABS: Basophils # (A) 0.1 k/uL (0-0.2); Basophils % (A) 1 %; Eosinophils # (A) 0.1 k/uL (0-0.7); Eosinophils % (A) 1 %; Hypochromasia Slight; Lymphocytes # (A) 1.6 k/uL (1.0-4.8); Lymphocytes % (A) 14 %; MCH 30.7 pg (25.0-35.0); MCHC 31.7 g/dL (31.0-37.0); MCV 96.7 fL (80.0-100.0); Mean Platelet Volume 7.8; Monocytes # (A) 0.6 k/uL (0-1.0); Monocytes % (A) 5 %; Neutrophils # (A) 8.7 k/uL (1.3-7.7); Neutrophils % (A) 77 %; Platelet Count 289 k/uL (150-450); RBC 4.24 m/uL (3.80-5.40); RDW 13.8 % (11.5-15.5); WBC 11.2 k/uL (3.8-10.6)
[2019-03-13 09:11] LABS: African American GFR (CKD) >90 (>60 ml/min/1.73 sqM); Anion Gap 8 mmol/L; Blood Urea Nitrogen 20 mg/dL (7-17); Calcium 9.4 mg/dL (8.4-10.2); Carbon Dioxide 27 mmol/L (22-30); Chloride 108 mmol/L (98-107); Glucose 120 mg/dL (74-99); Potassium 4.4 mmol/L (3.5-5.1); Sodium 143 mmol/L (137-145)
--- NOTE | 2019-03-13 12:36 | P.PN ---
Subjective Progress Note Date: 03/13/19 Principal diagnosis: Malnutrition Patient had some nausea this morning. She has been drinking liquids. Residuals were 1 80 mL. No vomiting. Objective - Vital Signs Vital signs: Vital Signs Temp 97.6 F 03/13/19 08:21 Pulse 98 03/13/19 11:03 Resp 19 03/13/19 08:30 BP 96/58 03/13/19 08:21 Pulse Ox 94 L 03/13/19 08:21 Intake & Output 03/12/19 03/13/19 03/13/19 18:59 06:59 18:59 Intake Total 60 180 270 Output Total 180 Balance 60 180 90 Weight 86.4 kg 84 kg Intake: Oral 180 Tube Feeding 60 180 90 Output: Gastric Drainage 180 - Exam Abdomen: Soft, nondistended, PEG site with minimal tenderness - Labs CBC & Chem 7: 03/13/19 07:28 03/13/19 07:28 Labs: Abnormal Lab Results - Last 24 Hours (Table) 03/13/19 03/13/19 Range/Units 07:28 07:28 WBC 11.2 H (3.8-10.6) k/uL Neutrophils # 8.7 H (1.3-7.7) k/uL Chloride 108 H (98-107) mmol/L BUN 20 H (7-17) mg/dL Glucose 120 H (74-99) mg/dL Microbiology - Last 24 Hours (Table) 03/09/19 02:32 Blood Culture - Preliminary Blood No Growth after 96 hours Assessment and Plan Plan: Will place PEG tube to dependent drainage for now. Hold tube feeds until tomorrow. Add Reglan.
--- NOTE | 2019-03-13 16:04 | P.PN ---
Subjective Progress Note Date: 03/13/19 Principal diagnosis: Large left upper lung mass, with multiple low-density areas within the liver This is a 68-year-old white female patient of Dr. Romero with past medical history of COPD, who is a former smoker, who came into the hospital on 03/09/2019 at 1:30 in the morning per EMS for complaints of increasing shortness of breath, nausea, vomiting diarrhea, epigastric abdominal discomfort. In addition patient reports significant weight loss, 70 pounds since November 2018, voi ce hoarseness, and increasing left neck mass. Patient reports inability to eat, because she is having choking episodes with all consistencies, she reports sensation of food getting stuck in her esophagus, and has been nauseous. She has a very weak cough, and her voice is now a whisper. Chest x-ray was completed on 03/09/2019 showing a large mass at the left pulmonary hilum consistent with malignancy which was a change from her previous chest x-ray from September 2018. Also showed small left pleural effusion and left basilar atelectasis. CT of the chest with contrast was completed showing large left-sided chest mass consistent with primary tumor in the left upper lobe with encasement of the pu lmonary arteries. There is extensive infiltrate in the lingula left upper lobe, and left pleural effusion. And at there is a background of diffuse pulmonary emphysema. Ears no evidence of pulmonary mass on the right side. Lab work was reviewed showing white blood cell count of 11.5, hemoglobin of 14.2, relation profile was within normal limits, electrolytes and renal profile were within normal limits. Troponin was negative. Patient is afebrile, she is on 2 L of oxygen with a pulse ox of 96%, asked to see the patient in evaluation for the left upper lobe mass On today's evaluation of 03/10/2019 the patient is essentially the same as yesterday. She was having dysphagia. She managed to have some light breakfast earlier today. She did not aspirate. However, the ultimate plan is to proceed with a PEG tube insertion and this will be done by general surgery today. The patient will also have the fine-needle aspirate of the lung mass today. No other active issues for now. She is on 2 L of oxygen. She is awake and alert and she understands was happening and she is very much involved in her care. On 03/11/2019 patient seen in follow-up on medical surgical floor. She has just returned from her PEG tube insertion procedure, denies any acute distress, denies any shortness of breath, she is on 2 L of oxygen with a pulse ox of 93%, afebrile, hemodynamically stable, he underwent a fine-needle aspirate biopsy of the left neck mass, and the biopsy results are still pending at this time. Patient still experiencing orthopnea, and unable to lay flat. Awaiting results of the biopsy, anticipate patient has tube feedings in the next 24 hours. On 03/12/2019 patient seen in follow-up. She is awake and alert, fairly she had a couple episodes of vomiting this morning, PEG tube was inserted yesterday, and we anticipate initiation of tube feedings today, she is strict nothing by mouth, except for some ice chips, she denies any acute distress. However she was unable to lie flat again today for MRI of the brain, so MRI of the brain was not completed, she denies any worsening dyspnea, she is on 2 L of oxygen and her pulse ox is 94%, afebrile, respirations are nonlabored, awaiting the results of the biopsy of the fine-needle biopsy of the left neck mass. Labs have been r eviewed, and are fairly unremarkable. On 03/13/2019 patient seen in follow-up on medical surgical floor. Her PEG tube is in place, and to feedings were started however patient has been unable to frances erate it and to feedings had to be stopped, she was quite nauseous, and her PEG tube is currently connected to a Kimbrough bag with some by the colored output from the PEG tube. She is nothing by mouth, denies any worsening dyspnea, results of the fine-needle biopsy are pending Objective - Vital Signs Vital signs: Vital Signs Temp 97.6 F 03/13/19 15:47 Pulse 108 H 03/13/19 15:47 Resp 18 03/13/19 15:47 BP 95/56 03/13/19 15:47 Pulse Ox 94 L 03/13/19 14:17 Intake & Output 03/12/19 03/13/19 03/13/19 18:59 06:59 18:59 Intake Total 60 180 270 Output Total 180 Balance 60 180 90 Weight 86.4 kg 84 kg 84 kg Intake: Oral 180 Tube Feeding 60 180 90 Output: Gastric Drainage 180 - Exam GENERAL EXAM: Alert, pleasant, 68-year-old white female, on room air with the pulse ox 94%, and patient has evidence of significant voice hoarseness, down to whisper, comfortable in no apparent distress. HEAD: Normocephalic/atraumatic. EYES: Normal reaction of pupils, equal size. Conjunctiva pink, sclera white. NOSE: Clear with pink turbinates. THROAT: No erythema or exudates. NECK: Left posterior cervical lymphadenopathy with mild tracheal deviation to the right. no JVD, no thyroid enlargement, no adenopathy. CHEST: No chest wall deformity. Symmetrical expansion. LUNGS: Equal air entry with no crackles, wheeze, rhonchi or dullness. Diminishe d breath sounds at the bases CVS: Regular rate and rhythm, normal S1 and S2, no gallops, no murmurs, no rubs ABDOMEN: Soft, nontender. No hepatosplenomegaly, normal bowel sounds, no guarding or rigidity. Left upper abdomen PEG tube is active to a Kimbrough bag with the Biley greenish output from the PEg tube EXTREMITIES: No clubbing, no edema, no cyanosis, 2+ pulses and upper and lower extremities. MUSCULOSKELETAL: Muscle strength and tone normal. SPINE: No scoliosis or deformity SKIN: No rashes CENTRAL NERVOUS SYSTEM: Alert and oriented -3. No focal deficits, tone is normal in all 4 extremities. PSYCHIATRIC: Alert and oriented -3. Appropriate affect. Intact judgment and insight. - Labs CBC & Chem 7: 03/13/19 07:28 03/13/19 07:28 Labs: Abnormal Lab Results - Last 24 Hours (Table) 03/13/19 03/13/19 Range/Units 07:28 07:28 WBC 11.2 H (3.8-10.6) k/uL Neutrophils # 8.7 H (1.3-7.7) k/uL Chloride 108 H (98-107) mmol/L BUN 20 H (7-17) mg/dL Glucose 120 H (74-99) mg/dL Microbiology - Last 24 Hours (Table) 03/09/19 02:32 Blood Culture - Preliminary Blood No Growth after 96 hours Assessment and Plan Plan: Assessment: #1. Large left upper lung mass suspicious for primary tumor, with encasement of the left lower lobe pulmonary arteries, and narrowing of the left upper lobe bronchus with near occlusion, and significant narrowing of the bronchus and the lingula and the left upper lobe. No evidence of pulmonary embolism, there is elevation of the left diaphragm, and there is extension of the mass into the base of the neck on the left side. Ration is status post a fine-needle aspirate biopsy of the left neck mass, and the biopsy results are still pending at this time #2. Multiple low-density areas throughout the visualized liver consistent with metastatic disease with the largest area measuring 8 cm in the left hepatic lobe #3. Left cervical lymphadenopathy #4. Voice hoarseness, intermittent weight loss of 70 pounds in the last 3 months #5. COPD #6. Former smoking history, quit smoking 20 years ago does carry 25 years of smoking #7. Dysphagia, status post PEG tube insertion for nutritional support Plan: Awaiting results of the left neck FNA biopsy, breathing is stable, vitals are stable, patient has been started on tube feedings, but has not been able to tolerate them, and tube feedings are again on hold right now. Otherwise no acute events, will await the results of the biopsy. Will follow. I performed a history & physical examination of the patient and discussed their management with my nurse practitioner, Shanell Canada. I reviewed the nurse practitioner's note and agree with the documented findings and plan of care. Lung sounds are positive for diminished breath sounds at the bases. The findings and the impression was discussed with the patient. I attest to the documentation by the nurse practitioner. Time with Patient: Less than 30
[2019-03-13] MEDS: METOCLOPRAMIDE 5 MG/ML 2 ML VIAL IVP SCH ×2 (16:44→23:50)
[2019-03-13] MEDS: KETOROLAC 30 MG/ML 1 ML VIAL IVP PRN (16:47)
--- NOTE | 2019-03-13 16:59 | P.PN ---
Subjective Progress Note Date: 03/13/19 This is 68-year-old female, nicotine dependent-shelter for greater than 25 years , history of COPD, emphysema, presented to the ER with worsening shortness of breath, hoarseness, nausea/vomiting, increased weakness times a few days. Reports progressive worsening of dysphagia/choking on both food/liquids, a 70 pound weight loss in the last 3 months, loss of voice now down to a whisper. Denies hemoptysis .Patient recently diagnosed with large left apical mass extending into the mediastinum with mediastinal lymphadenopathy, large left supraclavicular adenopathy per outpatient CT on . PCP had arranged for patient to follow-up with pulmonary for further follow-up including biopsy. Patient had not yet seen pulmonary outpatient. Chest x-ray reported large mass in the left pulmonary hilum with malignancy appearing worse compared to prior exam. CT on admission reported large left-sided chest mass, 9.6X 13.5 cm, consistent with primary tumor of the left upper lobe with encasement of the left subclavian artery, left carotid artery, and trachea with subcarinal mass extension, narrowing of the left upper and left lower lobe pulmonary arteries encased by tumor mass, extensive infiltrate in the left upper lobe lingula, narrowing of the left upper lobe bronchus which appears essentially occluded with significant narrowing of the bronchus in the lingula and left upper lobe. No aneurysm or dissection , elevated left diaphragm consistent with atelectasis , mass extends to the base of the neck, left side. Multiple low-density areas throughout the liver consistent with metastatic disease, largest in the left hepatic lobe measuring 8 cm.Pulmonary and oncology consulted. Speech therapy consulted for swallow evaluation. VSS. Afebrile, mild elevation in WBC, 11.5.CBC, CMP unremarkable with the exception of mild elevation of AST, alk phos. Denies any chest pain, palpitations. 03/10/2019 yesterday unable to lie flat for MRI related to shortness of breath.lung mass Biopsy pending. Surgery consulted for PEG tube placement today. Afebrile, mild tachycardia, vital signs stable. Remains hoarse, whispering. Maintaining O2 sats in the 90s on 2 L nasal cannula. Denies pain; denies abdominal pain denies chest pain, palpitations. 03/11/2019NPO, scheduled for PEG tube placement today. Underwent biopsy yesterday, complained of left shoulder pain throughout the night, received To [facility]. Left shoulder area discomfort persists.biopsy results pending .VSS. 03/12/2019 status post PEG tube placement yesterday, tolerated procedure well. Complains of discomfort at the insertion site. Left shoulder pain has resolved. Biopsy pathology pending. Vital signs stable. Maintaining O2 sats in the 90s on 2 L nasal cannula O2. Afebrile, normal WBC. 03/13/2019 Tube feeds initiated at 30/40 this morning . Complains of discomfort at PEG tube site, nausea without emesis. Residuals of 180. Reglan added to med regime. Tube feeds placed on hold, PEG tube to dependent drainage.Maintained on strict aspiration precautions. Feels better today, slept well. Pathology pending. Denies chest pain, palpitations or increased shortness of breath. Denies lightheadedness, dizziness or focal deficits. Evaluated by PT, home with home care recommended at discharge. Objective - Vital Signs Vital signs: Vital Signs Temp 98.1 F 03/13/19 07:00 Pulse 100 03/13/19 07:15 Resp 16 03/13/19 07:00 BP 119/74 03/13/19 07:00 Pulse Ox 92 L 03/13/19 07:00 Intake & Output 03/12/19 03/13/19 03/13/19 18:59 06:59 18:59 Intake Total 60 180 180 Balance 60 180 180 Weight 86.4 kg 84 kg Intake: Oral 180 Tube Feeding 60 180 - Exam VITAL SIGNS: As above GENERAL: Sitting up in bed, no acute distress HEENT: Conjunctivae normal. eyes normal. whispering NECK: No JVD. No thyroid enlargement. Left posterior cervical lymphadenopathy with mild trachea deviation to the right. CARDIOVASCULAR: S1, S2 regular. No murmur RESPIRATION: Breath sounds diminished in the bases. No rhonchi or crackles. No wheezing. ABDOMEN: Soft, nondistended, minimal diffuse tenderness, PEG tube present. No guarding. no masses palpable. Bowel sounds heard. LEGS: No edema. no swelling PSYCHIATRY: Alert and oriented X3, mood and affect normal. NERVOUS SYSTEM: Cranial N 2-12 grossly normal. Moves all 4 limbs. Diffuse weakness, No focal deficits. Strength and sensation grossly intact. Skin: no rash, no clubbing, no cyanosis - Labs CBC & Chem 7: 03/13/19 07:28 03/13/19 07:28 Labs: Microbiology - Last 24 Hours (Table) 03/09/19 02:32 Blood Culture - Preliminary Blood No Growth after 96 hours Assessment and Plan Assessment: -Dyspnea, large left-sided chest mass consistent with primary tumor of left upper lobe, with suspected metastases to the liver as per CT, -Cervical adenopathy,left, status post biopsy of left neck mass, pathology pending. -Vocal cord paralysis with hoarseness -Chronic COPD, emphysema -Acute hypoxic respiratory failure secondary to the above -Ongoing, long-term nicotine dependence -Dysphagia, suspect tumor involvement -Hypoalbuminemia with weight loss, mild to moderate protein calorie malnutrition secondary to the above -Status post PEG tube placement Plan: Continue current medication regime , Reglan, monitoring and symptomatic treatment. Biopsy pathology pending. PEG tube feedings to be placed on hold with PEG tube to dependent drainage. Strict aspiration precautions. Prognosis guarded given multiple complex medical issues. The impression and plan of care has been dictated as directed. : I performed a history and examination of this patient, discussed the same with the dictator. I agree with the dictator's note ,documented as a scribe. Any additional findings or plans will be noted.
[2019-03-14] MEDS: HYDROmorphone 0.5 MG/0.5 ML SYRINGE IVP PRN ×2 (04:29→23:53)
[2019-03-14] MEDS: SODIUM CHLORIDE 0.9% 1,000 ML IV SCH (04:41)
[2019-03-14] MEDS: METOCLOPRAMIDE 5 MG/ML 2 ML VIAL IVP SCH ×4 (05:25→23:53)
[2019-03-14 07:19] LABS: Basophils # (A) 0.1 k/uL (0-0.2); Basophils % (A) 1 %; Eosinophils # (A) 0.1 k/uL (0-0.7); Eosinophils % (A) 1 %; HGB 12.3 gm/dL (11.4-16.0); Hypochromasia Slight; Lymphocytes # (A) 1.3 k/uL (1.0-4.8); Lymphocytes % (A) 13 %; MCH 29.8 pg (25.0-35.0); MCHC 31.5 g/dL (31.0-37.0); MCV 94.6 fL (80.0-100.0); Mean Platelet Volume 6.2; Monocytes # (A) 0.5 k/uL (0-1.0); Monocytes % (A) 5 %; Neutrophils % (A) 79 %; Platelet Count 287 k/uL (150-450); RBC 4.12 m/uL (3.80-5.40); RDW 13.6 % (11.5-15.5); WBC 10.2 k/uL (3.8-10.6)
[2019-03-14 07:42] LABS: African American GFR (CKD) >90 (>60 ml/min/1.73 sqM); Anion Gap 5 mmol/L; Blood Urea Nitrogen 16 mg/dL (7-17); Calcium 9.2 mg/dL (8.4-10.2); Carbon Dioxide 31 mmol/L (22-30); Chloride 108 mmol/L (98-107); Glucose 98 mg/dL (74-99); Potassium 4.2 mmol/L (3.5-5.1); Sodium 144 mmol/L (137-145)
[2019-03-14] MEDS: IPRATROPIUM-ALBUTEROL 3 ML NEB INHALATION SCH ×4 (08:04→20:01)
--- NOTE | 2019-03-14 11:48 | P.PN ---
Progress Note - Text Progress Note Date: 03/14/19 The patient is resting comfortably in bed. Her PEG tube has been independent drainage. There is a large amount of gastric output through the PEG tube. There appears to be over 500 mL this morning. On exam her vital signs are stable. Her abdomen soft. Status post PEG tube with gastroparesis. Patient will continue have her PEG tube placed to dependent drainage. We will follow.
[2019-03-14] MEDS: KETOROLAC 30 MG/ML 1 ML VIAL IVP PRN (12:42)
--- NOTE | 2019-03-14 12:52 | P.PN ---
Subjective Progress Note Date: 03/14/19 This is a 68-year-old white female patient of Dr. Romero with past medical history of COPD, who is a former smoker, who came into the hospital on 03/09/2019 at 1:30 in the morning per EMS for complaints of increasing shortness of breath, nausea, vomiting diarrhea, epigastric abdominal discomfort. In madie tion patient reports significant weight loss, 70 pounds since November 2018, voice hoarseness, and increasing left neck mass. Patient reports inability to eat, because she is having choking episodes with all consistencies, she reports sensation of food getting stuck in her esophagus, and has been nauseous. She has a very weak cough, and her voice is now a whisper. Chest x-ray was completed on 03/09/2019 showing a large mass at the left pulmonary hilum consistent with malignancy which was a change from her previous chest x-ray from September 2018. Also showed small left pleural effusion and left basilar atelectasis. CT of the chest with contrast was completed showing large left-sided chest mass consistent with primary tumor in the left upper lobe with encasement of the pulmonary arteries. There is extensive infiltrate in the lingula left upper lobe, and left pleural effusion. And at there is a background of diffuse pulmonary emphysema. Ears no evidence of pulmonary mass on the right side. Lab work was reviewed showing white blood cell count of 11.5, hemoglobin of 14.2, relation profile was within normal limits, electrolytes and renal profile were within normal limits. Troponin was negative. Patient is afebrile, she is on 2 L of oxygen with a pulse ox of 96%, asked to see the patient in evaluation for the left upper lobe mass On today's evaluation of 03/10/2019 the patient is essentially the same as yesterday. She was having dysphagia. She managed to have some light breakfast earlier today. She did not aspirate. However, the ultimate plan is to proceed with a PEG tube insertion and this will be done by general surgery today. The patient will also have the fine-needle aspirate of the lung mass today. No other active issues for now. She is on 2 L of oxygen. She is awake and alert and she understands was happening and she is very much involved in her care. On 03/11/2019 patient seen in follow-up on medical surgical floor. She has just returned from her PEG tube insertion procedure, denies any acute distress, denies any shortness of breath, she is on 2 L of oxygen with a pulse ox of 93%, afebrile, hemodynamically stable, he underwent a fine-needle aspirate biopsy of the left neck mass, and the biopsy results are still pending at this time. Patient still experiencing orthopnea, and unable to lay flat. Awaiting results of the biopsy, anticipate patient has tube feedings in the next 24 hours. On 03/12/2019 patient seen in follow-up. She is awake and alert, fairly she had a couple episodes of vomiting this morning, PEG tube was inserted yesterday, and we anticipate initiation of tube feedings today, she is strict nothing by mouth, except for some ice chips, she denies any acute distress. However she was unable to lie flat again today for MRI of the brain, so MRI of the brain was not completed, she denies any worsening dyspnea, she is on 2 L of oxygen and her pulse ox is 94%, afebrile, respirations are nonlabored, awaiting the results of the biopsy of the fine-needle biopsy of the left neck mass. Labs have been reviewed, and are fairly unremarkable. On 03/13/2019 patient seen in follow-up on medical surgical floor. Her PEG tube is in place, and to feedings were started however patient has been unable to tolerate it and to feedings had to be stopped, she was quite nauseous, and her PEG tube is currently connected to a Kimbrough bag with some by the colored output from the PEG tube. She is nothing by mouth, denies any worsening dyspnea, results of the fine-needle biopsy are pending On 03/14/2019, the patient is still nothing by mouth. The PEG tube is in place and ARPIT-2 dependent suctioning and output is in order of 200 mL over the past 6- 8 hours roughly. Abdomen is nondistended. She is on promotility agent. She has hypoactive bowel sounds. She is resting comfortably in bed. She presented currently on hold. Supposed to be nothing by mouth. She is taking some applesauce for pleasure. Her diagnosis consistent with squamous cell carcinoma as discussed earlier. Objective - Vital Signs Vital signs: Vital Signs Temp 97.5 F L 03/14/19 07:00 Pulse 100 03/14/19 11:30 Resp 17 03/14/19 08:00 BP 106/71 03/14/19 07:00 Pulse Ox 92 L 03/14/19 07:00 Intake & Output 03/13/19 03/14/19 03/14/19 18:59 06:59 18:59 Intake Total 270 90 Output Total 180 400 Balance 90 -310 Weight 84 kg 79.5 kg Intake: Oral 180 Tube Feeding 90 90 Output: Gastric Drainage 180 400 Other: # Voids 1 - Exam GENERAL EXAM: Alert, pleasant, 68-year-old white female, in 2 L of oxygen and the pulse ox 96%, and patient has evidence of significant voice hoarseness, down to whisper, comfortable in no apparent distress. HEAD: Normocephalic/atraumatic. EYES: Normal reaction of pupils, equal size. Conjunctiva pink, sclera white. NOSE: Clear with pink turbinates. THROAT: No erythema or exudates. NECK: Left posterior cervical lymphadenopathy with mild tracheal deviation to the right. no JVD, no thyroid enlargement, no adenopathy. CHEST: No chest wall deformity. Symmetrical expansion. LUNGS: Equal air entry with no crackles, wheeze, rhonchi or dullness. Diminished breath sounds at the bases CVS: Regular rate and rhythm, normal S1 and S2, no gallops, no murmurs, no rubs ABDOMEN: Soft, nontender. No hepatosplenomegaly, normal bowel sounds, no guarding or rigidity. The patient has a PEG tube in place. EXTREMITIES: No clubbing, no edema, no cyanosis, 2+ pulses and upper and lower extremities. MUSCULOSKELETAL: Muscle strength and tone normal. SPINE: No scoliosis or deformity SKIN: No rashes CENTRAL NERVOUS SYSTEM: Alert and oriented -3. No focal deficits, tone is normal in all 4 extremities. PSYCHIATRIC: Alert and oriented -3. Appropriate affect. Intact judgment and insight. - Labs CBC & Chem 7: 03/14/19 06:42 03/14/19 06:42 Labs: Abnormal Lab Results - Last 24 Hours (Table) 03/14/19 03/14/19 Range/Units 06:42 06:42 Neutrophils # 8.0 H (1.3-7.7) k/uL Chloride 108 H (98-107) mmol/L Carbon Dioxide 31 H (22-30) mmol/L Microbiology - Last 24 Hours (Table) 03/09/19 02:32 Blood Culture - Preliminary Blood No Growth after 120 hours Assessment and Plan Plan: #1. Large left upper lung mass suspicious for primary tumor, with encasement of the left lower lobe pulmonary arteries, and narrowing of the left upper lobe bronchus with near occlusion, and significant narrowing of the bronchus and the lingula and the left upper lobe. No evidence of pulmonary embolism, there is elevation of the left diaphragm, and there is extension of the mass into the base of the neck on the left side. The biopsy was done and the diagnosis was consistent with squamous cell carcinoma. #2. Multiple low-density areas throughout the visualized liver consistent with metastatic disease with the largest area measuring 8 cm in the left hepatic lobe #3. Left cervical lymphadenopathy #4. Voice hoarseness, secondary to vocal cord paralysis #5. COPD #6. Former smoking history, quit smoking 20 years ago does carry 25 years of smoking #7. Dysphagia, PEG tube insertion and the patient is still having difficulty in tolerating the enteral feeding due to high residuals and it is currently independent suction. She is on Reglan and the tube feeds are on hold. There are bowel sounds. #8 weight loss and excessive 100 pounds Plan: Stable. Active issue for now in the difficulty in tolerating enteral feeding. The tube feeds on hold and infected testicle independent suction. We'll restart feeding tomorrow. She is on promotility agents.
--- NOTE | 2019-03-14 14:24 | P.PN ---
Subjective Progress Note Date: 03/14/19 Principal diagnosis: Large left upper lung mass suspicious for primary tumor, with encasement of the left lower lobe pulmonary arteries, and narrowing of the left upper lobe bronch us with near occlusion, and significant narrowing of the bronchus and the lingula and the left upper lobe. No evidence of pulmonary embolism, there is elevation of the left diaphragm, and there is extension of the mass into the base of the neck on the left side. The biopsy was done and the diagnosis was consistent with squamous cell carcinoma. 03/14/2019, the patient is seen and evaluated in room at bedside; still nothing by mouth. The PEG tube is in place and ARPIT-2 dependent suctioning and output is in order of 200 mL over the past 6-8 hours roughly. Abdomen is nondistended. She is started on Reglan. She has hypoactive bowel sounds. She is resting comfortably in bed. She presented currently on hold. Supposed to be nothing by mouth. She is taking some applesauce for pleasure. Her diagnosis consistent with squamous cell carcinoma as discussed earlier. Objective - Vital Signs Vital signs: Vital Signs Temp 97.5 F L 03/14/19 07:00 Pulse 100 03/14/19 11:30 Resp 17 03/14/19 08:00 BP 106/71 03/14/19 07:00 Pulse Ox 92 L 03/14/19 07:00 Intake & Output 03/13/19 03/14/19 03/14/19 18:59 06:59 18:59 Intake Total 270 90 Output Total 180 Balance 90 90 Weight 84 kg 79.5 kg Intake: Oral 180 Tube Feeding 90 90 Output: Gastric Drainage 180 Other: # Voids 1 - Exam PHYSICAL EXAMINATION: GENERAL: The patient is alert and oriented x3, not in any acute distress. Well developed, well nourished. HEENT: Pupils are round and equally reacting to light. EOMI. No scleral icterus. No conjunctival pallor. Normocephalic, atraumatic. No pharyngeal erythema. No thyromegaly. CARDIOVASCULAR: S1 and S2 present. No murmurs, rubs, or gallops. PULMONARY: Chest is clear to auscultation, no wheezing or crackles. ABDOMEN: Soft, nontender, nondistended, normoactive bowel sounds. No palpable organomegaly. MUSCULOSKELETAL: No joint swelling or deformity. EXTREMITIES: No cyanosis, clubbing, or pedal edema. NEUROLOGICAL: Gross neurological examination did not reveal any focal deficits. SKIN: No rashes. - Labs CBC & Chem 7: 03/14/19 06:42 03/14/19 06:42 Labs: Abnormal Lab Results - Last 24 Hours (Table) 03/14/19 03/14/19 Range/Units 06:42 06:42 Neutrophils # 8.0 H (1.3-7.7) k/uL Chloride 108 H (98-107) mmol/L Carbon Dioxide 31 H (22-30) mmol/L Microbiology - Last 24 Hours (Table) 03/09/19 02:32 Blood Culture - Preliminary Blood No Growth after 120 hours Assessment and Plan Assessment: #1. Large left upper lung mass suspicious for primary tumor, with encasement of the left lower lobe pulmonary arteries, and narrowing of the left upper lobe bronchus with near occlusion, and significant narrowing of the bronchus and the lingula and the left upper lobe. No evidence of pulmonary embolism, there is elevation of the left diaphragm, and there is extension of the mass into the base of the neck on the left side. The biopsy was done and the diagnosis was consistent with squamous cell carcinoma. #2. Multiple low-density areas throughout the visualized liver consistent with metastatic disease with the largest area measuring 8 cm in the left hepatic lobe #3. Left cervical lymphadenopathy #4. Voice hoarseness, secondary to vocal cord paralysis #5. COPD #6. Former smoking history, quit smoking 20 years ago does carry 25 years of smoking #7. Dysphagia, PEG tube insertion and the patient is still having difficulty in tolerating the enteral feeding due to high residuals and it is currently independent suction. She is on Reglan and the tube feeds are on hold. There are bowel sounds. #8 weight loss and excessive 100 pounds Time with Patient: Greater than 30
[2019-03-15] MEDS: HYDROmorphone 0.5 MG/0.5 ML SYRINGE IVP PRN ×3 (05:32→20:54)
[2019-03-15] MEDS: METOCLOPRAMIDE 5 MG/ML 2 ML VIAL IVP SCH ×3 (05:33→17:19)
[2019-03-15] MEDS: SODIUM CHLORIDE 0.9% 1,000 ML IV SCH (05:37)
[2019-03-15 07:23] LABS: Basophils % (A) 0 %; Eosinophils # (A) 0.1 k/uL (0-0.7); Eosinophils % (A) 1 %; HCT 37.7 % (34.0-46.0); HGB 11.6 gm/dL (11.4-16.0); Hypochromasia Slight; Lymphocytes # (A) 1.1 k/uL (1.0-4.8); Lymphocytes % (A) 13 %; MCH 29.8 pg (25.0-35.0); MCHC 30.9 g/dL (31.0-37.0); MCV 96.5 fL (80.0-100.0); Mean Platelet Volume 6.8; Monocytes # (A) 0.5 k/uL (0-1.0); Monocytes % (A) 6 %; Neutrophils # (A) 6.8 k/uL (1.3-7.7); Neutrophils % (A) 78 %; Platelet Count 285 k/uL (150-450); RDW 13.8 % (11.5-15.5); WBC 8.6 k/uL (3.8-10.6)
[2019-03-15 07:38] LABS: African American GFR (CKD) >90 (>60 ml/min/1.73 sqM); Anion Gap 7 mmol/L; Blood Urea Nitrogen 15 mg/dL (7-17); Carbon Dioxide 29 mmol/L (22-30); Chloride 108 mmol/L (98-107); Glucose 86 mg/dL (74-99); Potassium 4.2 mmol/L (3.5-5.1); Sodium 144 mmol/L (137-145)
[2019-03-15] MEDS: IPRATROPIUM-ALBUTEROL 3 ML NEB INHALATION SCH ×4 (08:54→19:02)
--- NOTE | 2019-03-15 10:25 | P.PN ---
Progress Note - Text Progress Note Date: 03/15/19 The patient remains well. The patient has been tolerating ice chips and water. The PEG tube is remained to drainage. On exam her vital signs are stable. Her abdomen soft. Patient will start PEG tube feedings at 10 mL an hour. We will advance this if her 4 hour residual is less than 200 mL.
--- NOTE | 2019-03-15 15:06 | P.PN ---
Subjective Progress Note Date: 03/15/19 This is a 68-year-old white female patient of Dr. Romero with past medical history of COPD, who is a former smoker, who came into the hospital on 03/09/2019 at 1:30 in the morning per EMS for complaints of increasing shortness of breath, nausea, vomiting diarrhea, epigastric abdominal discomfort. In madie tion patient reports significant weight loss, 70 pounds since November 2018, voice hoarseness, and increasing left neck mass. Patient reports inability to eat, because she is having choking episodes with all consistencies, she reports sensation of food getting stuck in her esophagus, and has been nauseous. She has a very weak cough, and her voice is now a whisper. Chest x-ray was completed on 03/09/2019 showing a large mass at the left pulmonary hilum consistent with malignancy which was a change from her previous chest x-ray from September 2018. Also showed small left pleural effusion and left basilar atelectasis. CT of the chest with contrast was completed showing large left-sided chest mass consistent with primary tumor in the left upper lobe with encasement of the pulmonary arteries. There is extensive infiltrate in the lingula left upper lobe, and left pleural effusion. And at there is a background of diffuse pulmonary emphysema. Ears no evidence of pulmonary mass on the right side. Lab work was reviewed showing white blood cell count of 11.5, hemoglobin of 14.2, relation profile was within normal limits, electrolytes and renal profile were within normal limits. Troponin was negative. Patient is afebrile, she is on 2 L of oxygen with a pulse ox of 96%, asked to see the patient in evaluation for the left upper lobe mass On today's evaluation of 03/10/2019 the patient is essentially the same as yesterday. She was having dysphagia. She managed to have some light breakfast earlier today. She did not aspirate. However, the ultimate plan is to proceed with a PEG tube insertion and this will be done by general surgery today. The patient will also have the fine-needle aspirate of the lung mass today. No other active issues for now. She is on 2 L of oxygen. She is awake and alert and she understands was happening and she is very much involved in her care. On 03/11/2019 patient seen in follow-up on medical surgical floor. She has just returned from her PEG tube insertion procedure, denies any acute distress, denies any shortness of breath, she is on 2 L of oxygen with a pulse ox of 93%, afebrile, hemodynamically stable, he underwent a fine-needle aspirate biopsy of the left neck mass, and the biopsy results are still pending at this time. Patient still experiencing orthopnea, and unable to lay flat. Awaiting results of the biopsy, anticipate patient has tube feedings in the next 24 hours. On 03/12/2019 patient seen in follow-up. She is awake and alert, fairly she had a couple episodes of vomiting this morning, PEG tube was inserted yesterday, and we anticipate initiation of tube feedings today, she is strict nothing by mouth, except for some ice chips, she denies any acute distress. However she was unable to lie flat again today for MRI of the brain, so MRI of the brain was not completed, she denies any worsening dyspnea, she is on 2 L of oxygen and her pulse ox is 94%, afebrile, respirations are nonlabored, awaiting the results of the biopsy of the fine-needle biopsy of the left neck mass. Labs have been reviewed, and are fairly unremarkable. On 03/13/2019 patient seen in follow-up on medical surgical floor. Her PEG tube is in place, and to feedings were started however patient has been unable to tolerate it and to feedings had to be stopped, she was quite nauseous, and her PEG tube is currently connected to a [employer]imb[employer] bag with some by the colored output from the PEG tube. She is nothing by mouth, denies any worsening dyspnea, results of the fine-needle biopsy are pending On 03/14/2019, the patient is still nothing by mouth. The PEG tube is in place and ARPIT-2 dependent suctioning and output is in order of 200 mL over the past 6- 8 hours roughly. Abdomen is nondistended. She is on promotility agent. She has hypoactive bowel sounds. She is resting comfortably in bed. She presented currently on hold. Supposed to be nothing by mouth. She is taking some applesauce for pleasure. Her diagnosis consistent with squamous cell carcinoma as discussed earlier. On 03/15/2019 and seeing Heena for a follow-up. This she'll feeds was restarted again at the rate of 20 mL an hour. She is being monitored very closely. No nausea. No abdominal distention. No emesis. No shortness of breath. She remains extremely hoarse unable to speak up and raise her voice because of her vocal cord paralysis. She is on Reglan. She is on DuoNeb nebulized treatments around the clock. No cough. No sputum production. No shortness of breath. No altered mentation at this point in time. MRI of the brain has not been done ye t. She is unable to lay down flat because of increased shortness of breath. Objective - Vital Signs Vital signs: Vital Signs Temp 98.4 F 03/15/19 07:00 Pulse 116 H 03/15/19 09:04 Resp 17 03/15/19 07:00 BP 104/64 03/15/19 07:00 Pulse Ox 93 L 03/15/19 07:00 Intake & Output 03/14/19 03/15/19 03/15/19 18:59 06:59 18:59 Intake Total 450 210 Output Total 400 250 Balance 50 -250 210 Weight 80.2 kg Intake: Oral 360 180 Tube Feeding 90 30 Output: Gastric Drainage 400 250 - Exam GENERAL EXAM: Alert, pleasant, 68-year-old white female, in 2 L of oxygen and the pulse ox 96%, and patient has evidence of significant voice hoarseness, down to whisper, comfortable in no apparent distress. HEAD: Normocephalic/atraumatic. EYES: Normal reaction of pupils, equal size. Conjunctiva pink, sclera white. NOSE: Clear with pink turbinates. THROAT: No erythema or exudates. NECK: Left posterior cervical lymphadenopathy with mild tracheal deviation to the right. no JVD, no thyroid enlargement, no adenopathy. CHEST: No chest wall deformity. Symmetrical expansion. LUNGS: Equal air entry with no crackles, wheeze, rhonchi or dullness. Dimini shed breath sounds at the bases CVS: Regular rate and rhythm, normal S1 and S2, no gallops, no murmurs, no rubs ABDOMEN: Soft, nontender. No hepatosplenomegaly, normal bowel sounds, no guarding or rigidity. The patient has a PEG tube in place. EXTREMITIES: No clubbing, no edema, no cyanosis, 2+ pulses and upper and lower extremities. MUSCULOSKELETAL: Muscle strength and tone normal. SPINE: No scoliosis or deformity SKIN: No rashes CENTRAL NERVOUS SYSTEM: Alert and oriented -3. No focal deficits, tone is normal in all 4 extremities. PSYCHIATRIC: Alert and oriented -3. Appropriate affect. Intact judgment and insight. - Labs CBC & Chem 7: 03/15/19 06:36 03/15/19 06:36 Labs: Abnormal Lab Results - Last 24 Hours (Table) 03/15/19 03/15/19 Range/Units 06:36 06:36 MCHC 30.9 L (31.0-37.0) g/dL Chloride 108 H (98-107) mmol/L Microbiology - Last 24 Hours (Table) 03/09/19 02:32 Blood Culture - Final Blood No Growth after 144 hours Assessment and Plan Plan: #1. Large left upper lung mass suspicious for primary tumor, with encasement of the left lower lobe pulmonary arteries, and narrowing of the left upper lobe bronchus with near occlusion, and significant narrowing of the bronchus and the lingula and the left upper lobe. No evidence of pulmonary embolism, there is elevation of the left diaphragm, and there is extension of the mass into the base of the neck on the left side. The biopsy was done and the diagnosis was consistent with squamous cell carcinoma. #2. Multiple low-density areas throughout the visualized liver consistent with metastatic disease with the largest area measuring 8 cm in the left hepatic lobe #3. Left cervical lymphadenopathy #4. Voice hoarseness, secondary to vocal cord paralysis #5. COPD #6. Former smoking history, quit smoking 20 years ago does carry 25 years of smoking #7. Dysphagia, PEG tube insertion and the patient is still having difficulty in tolerating the enteral feeding due to high residuals and it is currently independent suction. She is on Reglan and the tube feeds are on hold. There are bowel sounds. #8 weight loss and excessive 100 pounds Plan: *To proceed with a rate of 20 mL an hour. Monitor the residuals. Watch for any intolerance of gastric distention. Ambulate in the hallway. We'll continue to follow.
--- NOTE | 2019-03-15 17:24 | P.PN ---
Subjective Progress Note Date: 03/15/19 Principal diagnosis: Large left upper lung mass suspicious for primary tumor, with encasement of the left lower lobe pulmonary arteries, and narrowing of the left upper lobe bronch us with near occlusion, and significant narrowing of the bronchus and the lingula and the left upper lobe. No evidence of pulmonary embolism, there is elevation of the left diaphragm, and there is extension of the mass into the base of the neck on the left side. The biopsy was done and the diagnosis was consistent with squamous cell carcinoma. 03/14/2019, the patient is seen and evaluated in room at bedside; still nothing by mouth. The PEG tube is in place and ARPIT-2 dependent suctioning and output is in order of 200 mL over the past 6-8 hours roughly. Abdomen is nondistended. She is started on Reglan. She has hypoactive bowel sounds. She is resting comfortably in bed. She presented currently on hold. Supposed to be nothing by mouth. She is taking some applesauce for pleasure. Her diagnosis consistent with squamous cell carcinoma as discussed earlier. 03/15/2019 Patient is seen for follow-up status post PEG tube placement; Feeding has been on hold due to emesis and intolerance of tube feeds Patient PEG tube has remained to drainage and patient has been tolerating ice chips and water; Vital signs are stable with a temperature of 98.4, pulse 100, respiration 17 and blood pressure of 104/64 with SpO2 of 93% on 2 L Lab review shows a white blood count of 8.6, hemoglobin 11.6 and platelet count of 285 ; sodium of 144 with potassium of 4.2 surgery is following and recommending to start PEG tube feeding at 10 mL an hour and advance to 4 hours residual is less than 200 mL Objective - Vital Signs Vital signs: Vital Signs Temp 98.4 F 03/15/19 07:00 Pulse 116 H 03/15/19 09:04 Resp 17 03/15/19 07:00 BP 104/64 03/15/19 07:00 Pulse Ox 93 L 03/15/19 07:00 Intake & Output 03/14/19 03/15/19 03/15/19 18:59 06:59 18:59 Intake Total 450 210 Output Total 400 250 Balance 50 -250 210 Weight 80.2 kg Intake: Oral 360 180 Tube Feeding 90 30 Output: Gastric Drainage 400 250 - Exam PHYSICAL EXAMINATION: GENERAL: The patient is alert and oriented x3, not in any acute distress. Well developed, well nourished. HEENT: Pupils are round and equally reacting to light. EOMI. No scleral icterus. No conjunctival pallor. Normocephalic, atraumatic. No pharyngeal erythema. No thyromegaly. CARDIOVASCULAR: S1 and S2 present. No murmurs, rubs, or gallops. PULMONARY: Chest is clear to auscultation, no wheezing or crackles. ABDOMEN: Soft, nontender, nondistended, normoactive bowel sounds. No palpable organomegaly. MUSCULOSKELETAL: No joint swelling or deformity. EXTREMITIES: No cyanosis, clubbing, or pedal edema. NEUROLOGICAL: Gross neurological examination did not reveal any focal deficits. SKIN: No rashes. - Labs CBC & Chem 7: 03/15/19 06:36 03/15/19 06:36 Labs: Abnormal Lab Results - Last 24 Hours (Table) 03/15/19 03/15/19 Range/Units 06:36 06:36 MCHC 30.9 L (31.0-37.0) g/dL Chloride 108 H (98-107) mmol/L Microbiology - Last 24 Hours (Table) 03/09/19 02:32 Blood Culture - Final Blood No Growth after 144 hours Assessment and Plan Assessment: #1. Large left upper lung mass suspicious for primary tumor, with encasement of the left lower lobe pulmonary arteries, and narrowing of the left upper lobe bronchus with near occlusion, and significant narrowing of the bronchus and the lingula and the left upper lobe. No evidence of pulmonary embolism, there is elevation of the left diaphragm, and there is extension of the mass into the base of the neck on the left side. The biopsy was done and the diagnosis was consistent with squamous cell carcinoma. #2. Multiple low-density areas throughout the visualized liver consistent with metastatic disease with the largest area measuring 8 cm in the left hepatic lobe #3. Left cervical lymphadenopathy #4. Voice hoarseness, secondary to vocal cord paralysis #5. COPD #6. Former smoking history, quit smoking 20 years ago does carry 25 years of smoking #7. Dysphagia, PEG tube insertion and the patient is still having difficulty in tolerating the enteral feeding due to high residuals and it is currently independent suction. She is on Reglan and the tube feeds are on hold. There are bowel sounds. #8 weight loss and excessive 100 pounds
[2019-03-16] MEDS: METOCLOPRAMIDE 5 MG/ML 2 ML VIAL IVP SCH ×5 (00:15→23:25)
[2019-03-16] MEDS: SODIUM CHLORIDE 0.9% 1,000 ML IV SCH (01:56)
[2019-03-16] MEDS: HYDROmorphone 0.5 MG/0.5 ML SYRINGE IVP PRN (05:44)
[2019-03-16] MEDS: IPRATROPIUM-ALBUTEROL 3 ML NEB INHALATION SCH ×4 (07:44→20:07)
[2019-03-16 08:25] LABS: Basophils # (A) 0.1 k/uL (0-0.2); Basophils % (A) 1 %; Eosinophils # (A) 0.1 k/uL (0-0.7); Eosinophils % (A) 1 %; HCT 39.5 % (34.0-46.0); HGB 12.3 gm/dL (11.4-16.0); Hypochromasia Slight; Lymphocytes # (A) 1.3 k/uL (1.0-4.8); Lymphocytes % (A) 15 %; MCHC 31.1 g/dL (31.0-37.0); MCV 96.5 fL (80.0-100.0); Mean Platelet Volume 6.8; Monocytes # (A) 0.5 k/uL (0-1.0); Monocytes % (A) 6 %; Neutrophils # (A) 6.6 k/uL (1.3-7.7); Neutrophils % (A) 76 %; Platelet Count 303 k/uL (150-450); RBC 4.09 m/uL (3.80-5.40); RDW 13.8 % (11.5-15.5); WBC 8.7 k/uL (3.8-10.6)
[2019-03-16 08:26] LABS: African American GFR (CKD) >90 (>60 ml/min/1.73 sqM); Anion Gap 6 mmol/L; Blood Urea Nitrogen 14 mg/dL (7-17); Calcium 9.1 mg/dL (8.4-10.2); Carbon Dioxide 28 mmol/L (22-30); Chloride 108 mmol/L (98-107); Glucose 110 mg/dL (74-99); Potassium 4.2 mmol/L (3.5-5.1); Sodium 142 mmol/L (137-145)
--- NOTE | 2019-03-16 12:24 | P.PN ---
Subjective Progress Note Date: 03/16/19 Principal diagnosis: Large left upper lung mass, with multiple low-density areas within the liver This is a 68-year-old white female patient of Dr. Romero with past medical history of COPD, who is a former smoker, who came into the hospital on 03/09/2019 at 1:30 in the morning per EMS for complaints of increasing shortness of breath, nausea, vomiting diarrhea, epigastric abdominal discomfort. In addition patient reports significant weight loss, 70 pounds since November 2018, voi ce hoarseness, and increasing left neck mass. Patient reports inability to eat, because she is having choking episodes with all consistencies, she reports sensation of food getting stuck in her esophagus, and has been nauseous. She has a very weak cough, and her voice is now a whisper. Chest x-ray was completed on 03/09/2019 showing a large mass at the left pulmonary hilum consistent with malignancy which was a change from her previous chest x-ray from September 2018. Also showed small left pleural effusion and left basilar atelectasis. CT of the chest with contrast was completed showing large left-sided chest mass consistent with primary tumor in the left upper lobe with encasement of the pu lmonary arteries. There is extensive infiltrate in the lingula left upper lobe, and left pleural effusion. And at there is a background of diffuse pulmonary emphysema. Ears no evidence of pulmonary mass on the right side. Lab work was reviewed showing white blood cell count of 11.5, hemoglobin of 14.2, relation profile was within normal limits, electrolytes and renal profile were within normal limits. Troponin was negative. Patient is afebrile, she is on 2 L of oxygen with a pulse ox of 96%, asked to see the patient in evaluation for the left upper lobe mass On today's evaluation of 03/10/2019 the patient is essentially the same as yesterday. She was having dysphagia. She managed to have some light breakfast earlier today. She did not aspirate. However, the ultimate plan is to proceed with a PEG tube insertion and this will be done by general surgery today. The patient will also have the fine-needle aspirate of the lung mass today. No other active issues for now. She is on 2 L of oxygen. She is awake and alert and she understands was happening and she is very much involved in her care. On 03/11/2019 patient seen in follow-up on medical surgical floor. She has just returned from her PEG tube insertion procedure, denies any acute distress, denies any shortness of breath, she is on 2 L of oxygen with a pulse ox of 93%, afebrile, hemodynamically stable, he underwent a fine-needle aspirate biopsy of the left neck mass, and the biopsy results are still pending at this time. Patient still experiencing orthopnea, and unable to lay flat. Awaiting results of the biopsy, anticipate patient has tube feedings in the next 24 hours. On 03/12/2019 patient seen in follow-up. She is awake and alert, fairly she had a couple episodes of vomiting this morning, PEG tube was inserted yesterday, and we anticipate initiation of tube feedings today, she is strict nothing by mouth, except for some ice chips, she denies any acute distress. However she was unable to lie flat again today for MRI of the brain, so MRI of the brain was not completed, she denies any worsening dyspnea, she is on 2 L of oxygen and her pulse ox is 94%, afebrile, respirations are nonlabored, awaiting the results of the biopsy of the fine-needle biopsy of the left neck mass. Labs have been r eviewed, and are fairly unremarkable. On 03/13/2019 patient seen in follow-up on medical surgical floor. Her PEG tube is in place, and to feedings were started however patient has been unable to frances erate it and to feedings had to be stopped, she was quite nauseous, and her PEG tube is currently connected to a Kimbrough bag with some by the colored output from the PEG tube. She is nothing by mouth, denies any worsening dyspnea, results of the fine-needle biopsy are pending On 03/16/2019 patient seen in follow-up on medical surgical floor. She is awake and alert, in no acute distress, denies any worsening dyspnea, her voice is still a whisper, but denies any significant cough or congestion, she has been restarted on tube feedings, with TwoCal at a rate of 10, with a goal of 40. No nausea or vomiting, she is also consuming oral feedings, with nectar thick liquids. However her appetite is still quite poor, lung sounds reveal diminished breath sounds on the left with a few scattered rales on the right, she is on 2 L of oxygen with a pulse ox of 92%. Left neck FNA biopsy report still has not been officially release however preliminary report stated the biopsy was consistent with squamous cell carcinoma. Today's labs have been reviewed, CBC was unremarkable, BMP was unremarkable as well. No acute events overnight, patient is still unable to tolerate lying down flat and for that reason has not been able to complete the MRI of the brain. Objective - Vital Signs Vital signs: Vital Signs Temp 98.0 F 03/16/19 07:52 Pulse 99 03/16/19 11:11 Resp 17 03/16/19 07:52 BP 108/66 03/16/19 07:52 Pulse Ox 92 L 03/16/19 07:52 Intake & Output 03/15/19 03/16/19 03/16/19 18:59 06:59 18:59 Intake Total 420 260 Balance 420 260 Weight 80 kg 80 kg Intake: Oral 360 Tube Feeding 60 140 Other 120 - Exam GENERAL EXAM: Alert, pleasant, 68-year-old white female, on room air with the pulse ox 94%, and patient has evidence of significant voice hoarseness, down to whisper, comfortable in no apparent distress. HEAD: Normocephalic/atraumatic. EYES: Normal reaction of pupils, equal size. Conjunctiva pink, sclera white. NOSE: Clear with pink turbinates. THROAT: No erythema or exudates. NECK: Left posterior cervical lymphadenopathy with mild tracheal deviation to the right. no JVD, no thyroid enlargement, no adenopathy. CHEST: No chest wall deformity. Symmetrical expansion. LUNGS: Equal air entry with no crackles, wheeze, rhonchi or dullness. Diminished breath sounds at the bases CVS: Regular rate and rhythm, normal S1 and S2, no gallops, no murmurs, no rubs ABDOMEN: Soft, nontender. No hepatosplenomegaly, normal bowel sounds, no guarding or rigidity. Left upper abdomen PEG tube is active to a Kimbrough bag with the Biley greenish output from the PEg tube EXTREMITIES: No clubbing, no edema, no cyanosis, 2+ pulses and upper and lower extremities. MUSCULOSKELETAL: Muscle strength and tone normal. SPINE: No scoliosis or deformity SKIN: No rashes CENTRAL NERVOUS SYSTEM: Alert and oriented -3. No focal deficits, tone is normal in all 4 extremities. PSYCHIATRIC: Alert and oriented -3. Appropriate affect. Intact judgment and insight. - Labs CBC & Chem 7: 03/16/19 07:33 03/16/19 07:33 Labs: Abnormal Lab Results - Last 24 Hours (Table) 03/16/19 Range/Units 07:33 Chloride 108 H (98-107) mmol/L Glucose 110 H (74-99) mg/dL Assessment and Plan Plan: Assessment: #1. Large left upper lung mass suspicious for primary tumor, with encasement of the left lower lobe pulmonary arteries, and narrowing of the left upper lobe bronchus with near occlusion, and significant narrowing of the bronchus and the lingula and the left upper lobe. No evidence of pulmonary embolism, there is elevation of the left diaphragm, and there is extension of the mass into the base of the neck on the left side. The biopsy was done and the diagnosis was consistent with squamous cell carcinoma. #2. Multiple low-density areas throughout the visualized liver consistent with metastatic disease with the largest area measuring 8 cm in the left hepatic lobe #3. Left cervical lymphadenopathy #4. Voice hoarseness, intermittent weight loss of 70 pounds in the last 3 months #5. COPD #6. Former smoking history, quit smoking 20 years ago does carry 25 years of smoking #7. Dysphagia, status post PEG tube insertion for nutritional support, patient has been having difficulty tolerating enteral feeding due to high residuals and nausea. 2 feedings have been resumed today, patient is on promotility agents in the form of Reglan Plan: Continue with current medical treatment. Denies any difficulty breathing, continue with nebulized bronchodilators, no significant congestion, patient is still unable to lie flat and she is unable to complete the MRI of the brain, maintain aspiration precautions, her oral intake has been poor, her appetite remains poor. No acute issues overnight, no nausea, no vomiting, patient remains on Reglan, and so far she is tolerating trickle feed, and this will be slowly increased to goal. I performed a history & physical examination of the patient and discussed their management with my nurse practitioner, Shanell Canada. I reviewed the nurse practitioner's note and agree with the documented findings and plan of care. Lung sounds are positive for diminished breath sounds at the bases. The findings and the impression was discussed with the patient. I attest to the documentation by the nurse practitioner. Time with Patient: Less than 30
--- NOTE | 2019-03-16 12:25 | P.PN ---
<Neema Vidse Cheryl - Last Filed: 03/16/19 12:22> Subjective Progress Note Date: 03/16/19 CHIEF COMPLAINT: PEG tube insertion HISTORY OF PRESENT ILLNESS: Patient is status post PEG tube insertion. Patient denies abdominal pain. Patient had high residuals over the weekend and tube feeding rate was decreased. Currently infusing at 10 mL an hour. Nursing reports 30 mL residual this morning. Patient does report some mild nausea. Denies emesis. PHYSICAL EXAM: VITAL SIGNS: Reviewed. GENERAL: Well-developed in no acute distress. HEENT: No sclera icterus. Extraocular movements grossly intact. Moist buccal mucosa. Head is atraumatic, normocephalic. Voice is quiet and hoarse. ABDOMEN: Soft. Nondistended. Nontender. PEG tube intact. NEUROLOGIC: Alert and oriented. ASSESSMENT: 1. Large left lung mass extending into the neck, with encasement of left lower pulmonary arteries, narrowing of the left upper lobe brochus with near occlusion, and significant narrowing of the bronchus and the lingula and the left upper lobe. CT also reveals likely metastasis to the liver 2. Dysphagia 3. Unintentional weight loss, 70 lbs since November PLAN: Continue tube feedings at 10cc/hr. Due to nausea, do not advance tube feeding rate at this time. If nausea subsides this afternoon, may attempt advancing feedings Continue to check residuals q4 hours. Notify provider for increased residual. Nurse practitioner note has been reviewed by physician. Signing provider agrees with the documented findings, assessment, and plan of care. Objective - Vital Signs Vital signs: Vital Signs Temp 98.0 F 03/16/19 07:52 Pulse 99 03/16/19 11:11 Resp 17 03/16/19 07:52 BP 108/66 03/16/19 07:52 Pulse Ox 92 L 03/16/19 07:52 Intake & Output 03/15/19 03/16/19 03/16/19 18:59 06:59 18:59 Intake Total 420 260 Balance 420 260 Weight 80 kg 80 kg Intake: Oral 360 Tube Feeding 60 140 Other 120 - Labs CBC & Chem 7: 03/16/19 07:33 03/16/19 07:33 Labs: Abnormal Lab Results - Last 24 Hours (Table) 03/16/19 Range/Units 07:33 Chloride 108 H (98-107) mmol/L Glucose 110 H (74-99) mg/dL <Sid Jackson - Last Filed: 03/16/19 17:04> Subjective As above. Patient tolerating tube feeds at 10 mL per hour. Mild pain around PEG tube site. Bolster intact and not overly tight. Continue gradually advancing tube feeds. Objective - Vital Signs Vital signs: Vital Signs Temp 98.3 F 03/16/19 15:00 Pulse 96 03/16/19 15:38 Resp 16 03/16/19 15:00 BP 108/70 03/16/19 15:00 Pulse Ox 93 L 03/16/19 15:25 Intake & Output 03/15/19 03/16/19 03/16/19 18:59 06:59 18:59 Intake Total 420 260 Balance 420 260 Weight 80 kg 80 kg Intake: Oral 360 Tube Feeding 60 140 Other 120 - Labs CBC & Chem 7: 03/16/19 07:33 03/16/19 07:33 Labs: Abnormal Lab Results - Last 24 Hours (Table) 03/16/19 Range/Units 07:33 Chloride 108 H (98-107) mmol/L Glucose 110 H (74-99) mg/dL
--- NOTE | 2019-03-16 15:37 | P.PN ---
Subjective Progress Note Date: 03/16/19 This is 68-year-old female, nicotine dependent-group home for greater than 25 years , history of COPD, emphysema, presented to the ER with worsening shortness of breath, hoarseness, nausea/vomiting, increased weakness times a few days. Reports progressive worsening of dysphagia/choking on both food/liquids, a 70 pound weight loss in the last 3 months, loss of voice now down to a whisper. Denies hemoptysis .Patient recently diagnosed with large left apical mass extending into the mediastinum with mediastinal lymphadenopathy, large left supraclavicular adenopathy per outpatient CT on . PCP had arranged for patient to follow-up with pulmonary for further follow-up including biopsy. Patient had not yet seen pulmonary outpatient. Chest x-ray reported large mass in the left pulmonary hilum with malignancy appearing worse compared to prior exam. CT on admission reported large left-sided chest mass, 9.6X 13.5 cm, consistent with primary tumor of the left upper lobe with encasement of the left subclavian artery, left carotid artery, and trachea with subcarinal mass extension, narrowing of the left upper and left lower lobe pulmonary arteries encased by tumor mass, extensive infiltrate in the left upper lobe lingula, narrowing of the left upper lobe bronchus which appears essentially occluded with significant narrowing of the bronchus in the lingula and left upper lobe. No aneurysm or dissection , elevated left diaphragm consistent with atelectasis , mass extends to the base of the neck, left side. Multiple low-density areas throughout the liver consistent with metastatic disease, largest in the left hepatic lobe measuring 8 cm.Pulmonary and oncology consulted. Speech therapy consulted for swallow evaluation. VSS. Afebrile, mild elevation in WBC, 11.5.CBC, CMP unremarkable with the exception of mild elevation of AST, alk phos. Denies any chest pain, palpitations. 03/10/2019 yesterday unable to lie flat for MRI related to shortness of breath.lung mass Biopsy pending. Surgery consulted for PEG tube placement today. Afebrile, mild tachycardia, vital signs stable. Remains hoarse, whispering. Maintaining O2 sats in the 90s on 2 L nasal cannula. Denies pain; denies abdominal pain denies chest pain, palpitations. 03/11/2019NPO, scheduled for PEG tube placement today. Underwent biopsy yesterday, complained of left shoulder pain throughout the night, [facility]. Left shoulder area discomfort persists.biopsy results pending .VSS. 03/12/2019 status post PEG tube placement yesterday, tolerated procedure well. Complains of discomfort at the insertion site. Left shoulder pain has resolved. Biopsy pathology pending. Vital signs stable. Maintaining O2 sats in the 90s on 2 L nasal cannula O2. Afebrile, normal WBC. 03/13/2019 Tube feeds initiated at 30/40 this morning . Complains of discomfort at PEG tube site, nausea without emesis. Residuals of 180. Reglan added to med regime. Tube feeds placed on hold, PEG tube to dependent drainage.Maintained on strict aspiration precautions. Feels better today, slept well. Pathology pending. Denies chest pain, palpitations or increased shortness of breath. Denies lightheadedness, dizziness or focal deficits. Evaluated by PT, home with home care recommended at discharge. 03/16/2019 tube feeds have been resumed currently at 10 with goal of 40, residuals ranging from 10-30. Mild nausea, no emesis. Denies abdominal pain. No feeding advancement at this time as per surgery. Unable to lay flat.Maintaining O2 sats of low 90s on 2 L nasal cannula. Preliminary left neck biopsy reporting consistent with squamous cell CA, final report pending. Objective - Vital Signs Vital signs: Vital Signs Temp 98.0 F 03/16/19 07:52 Pulse 99 03/16/19 11:11 Resp 17 03/16/19 07:52 BP 108/66 03/16/19 07:52 Pulse Ox 92 L 03/16/19 07:52 Intake & Output 03/15/19 03/16/19 03/16/19 18:59 06:59 18:59 Intake Total 420 260 Balance 420 260 Weight 80 kg 80 kg Intake: Oral 360 Tube Feeding 60 140 Other 120 - Exam VITAL SIGNS: As above GENERAL: Sitting up in bed, no acute distress HEENT: Conjunctivae normal. eyes normal. whispering NECK: No JVD. No thyroid enlargement. Left posterior cervical lymphadenopathy with mild trachea deviation to the right. CARDIOVASCULAR: S1, S2 regular. No murmur RESPIRATION: Breath sounds diminished in the bases. No rhonchi,crackles, wheezing. ABDOMEN: Soft, nondistended, minimal diffuse tenderness, PEG tube present. No guarding. no masses palpable. Bowel sounds heard. LEGS: No edema. no swelling PSYCHIATRY: Alert and oriented X3, mood and affect normal. NERVOUS SYSTEM: Cranial N 2-12 grossly normal. Moves all 4 limbs. Diffuse weakness, No focal deficits. Strength and sensation grossly intact. Skin: no rash, no clubbing, no cyanosis. - Labs CBC & Chem 7: 03/16/19 07:33 03/16/19 07:33 Labs: Abnormal Lab Results - Last 24 Hours (Table) 03/16/19 Range/Units 07:33 Chloride 108 H (98-107) mmol/L Glucose 110 H (74-99) mg/dL Assessment and Plan Assessment: -Dyspnea, large left-sided chest mass consistent with primary tumor of left upper lobe, with suspected metastases to the liver as per CT, -Cervical adenopathy,left, status post biopsy of left neck mass, pathology pending.preliminary biopsy diagnosis reported as consistent with squamous cell CA, final report pending -Vocal cord paralysis with hoarseness -Chronic COPD, emphysema -Acute hypoxic respiratory failure secondary to the above -Ongoing, long-term nicotine dependence -Dysphagia, suspect tumor involvement -Hypoalbuminemia with weight loss, mild to moderate protein calorie malnutrition secondary to the above -Status post PEG tube placement Plan: Continue current medication regime , Reglan, monitoring and symptomatic treatment. Strict aspiration precautions. Final Biopsy pathology pending. PEG tube feedings resumed/advancement as per surgery. Prognosis guarded given multiple complex medical issues. The impression and plan of care has been dictated as directed. : I performed a history and examination of this patient, discussed the same with the dictator. I agree with the dictator's note ,documented as a scribe. Any additional findings or plans will be noted.
--- NOTE | 2019-03-16 20:58 | P.PN ---
Subjective Progress Note Date: 03/16/19 Principal diagnosis: Lung Mass At time of evaluation this am, path was not resulted. Patient had no new complaints at that time. Objective - Vital Signs Vital signs: Vital Signs Temp 97.0 F L 03/16/19 19:34 Pulse 90 03/16/19 20:22 Resp 18 03/16/19 19:34 BP 108/70 03/16/19 19:34 Pulse Ox 90 L 03/16/19 19:34 Intake & Output 03/16/19 03/16/19 03/17/19 06:59 18:59 06:59 Intake Total 260 10 Balance 260 10 Weight 80 kg 80 kg Intake: Tube Feeding 140 10 Other 120 - Exam - Constitutional General appearance: Present: cooperative, no acute distress, obese - EENT Eyes: Present: anicteric sclerae, edentulous, EOMI - Respiratory Respiratory: bilateral: CTA - Cardiovascular Heart sounds: normal: S1, S2 Abnormal Heart Sounds: Present: systolic murmur - Peripheral edema leg Peripheral Edema: bilateral: None - Gastrointestinal General gastrointestinal: Present: normal bowel sounds, soft - Neurologic Neurologic: Present: CNII-XII intact - Musculoskeletal Musculoskeletal: Present: strength equal bilaterally - Psychiatric Psychiatric: Present: A&O x's 3, appropriate affect, intact judgment & insight - Labs CBC & Chem 7: 03/16/19 07:33 03/16/19 07:33 Labs: Abnormal Lab Results - Last 24 Hours (Table) 03/16/19 Range/Units 07:33 Chloride 108 H (98-107) mmol/L Glucose 110 H (74-99) mg/dL Assessment and Plan Plan: Mass of left lung Status post FNA of the left anterior cervical chain lymph node mass. 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 - PET scan is scheduled for outpatient next Saturday. - Staff is monitoring the patient while she is in the hospital. - They will contact her on discharge with instructions. - At that time they will make a follow-up appointment with Dr. Zhao status post scans to discuss pathology/diagnosis, prognosis, treatment options. - Patient verbalized understanding the plan. - Patient is unable to lay flat due to severe orthopnea for MRI or CT of the brain. This will be followed up in the outpatient setting.
[2019-03-17] MEDS: HYDROmorphone 0.5 MG/0.5 ML SYRINGE IVP PRN (03:04)
[2019-03-17] MEDS: SODIUM CHLORIDE 0.9% 1,000 ML IV SCH ×2 (03:59→11:42)
[2019-03-17] MEDS: METOCLOPRAMIDE 5 MG/ML 2 ML VIAL IVP SCH ×4 (05:56→23:04)
[2019-03-17] MEDS: IPRATROPIUM-ALBUTEROL 3 ML NEB INHALATION SCH ×4 (09:03→20:44)
[2019-03-17 10:18] LABS: African American GFR (CKD) >90 (>60 ml/min/1.73 sqM); Anion Gap 5 mmol/L; Blood Urea Nitrogen 12 mg/dL (7-17); Calcium 8.9 mg/dL (8.4-10.2); Carbon Dioxide 28 mmol/L (22-30); Chloride 107 mmol/L (98-107); Glucose 107 mg/dL (74-99); Potassium 4.2 mmol/L (3.5-5.1); Sodium 140 mmol/L (137-145)
[2019-03-17 10:22] LABS: Basophils # (A) 0.1 k/uL (0-0.2); Basophils % (A) 1 %; Eosinophils # (A) 0.1 k/uL (0-0.7); Eosinophils % (A) 1 %; HCT 37.3 % (34.0-46.0); Hypochromasia Slight; Lymphocytes # (A) 1.4 k/uL (1.0-4.8); Lymphocytes % (A) 19 %; MCH 30.3 pg (25.0-35.0); MCV 94.5 fL (80.0-100.0); Mean Platelet Volume 6.7; Monocytes # (A) 0.5 k/uL (0-1.0); Monocytes % (A) 7 %; Neutrophils # (A) 5.4 k/uL (1.3-7.7); Neutrophils % (A) 70 %; Platelet Count 297 k/uL (150-450); RBC 3.95 m/uL (3.80-5.40); RDW 13.4 % (11.5-15.5); WBC 7.6 k/uL (3.8-10.6)
--- NOTE | 2019-03-17 14:01 | P.PN ---
Subjective Progress Note Date: 03/17/19 This is 68-year-old female, nicotine dependent-[facility] for greater than 25 years , history of COPD, emphysema, presented to the ER with worsening shortness of breath, hoarseness, nausea/vomiting, increased weakness times a few days. Reports progressive worsening of dysphagia/choking on both food/liquids, a 70 pound weight loss in the last 3 months, loss of voice now down to a whisper. Denies hemoptysis .Patient recently diagnosed with large left apical mass extending into the mediastinum with mediastinal lymphadenopathy, large left supraclavicular adenopathy per outpatient CT on . PCP had arranged for patient to follow-up with pulmonary for further follow-up including biopsy. Patient had not yet seen pulmonary outpatient. Chest x-ray reported large mass in the left pulmonary hilum with malignancy appearing worse compared to prior exam. CT on admission reported large left-sided chest mass, 9.6X 13.5 cm, consistent with primary tumor of the left upper lobe with encasement of the left subclavian artery, left carotid artery, and trachea with subcarinal mass extension, narrowing of the left upper and left lower lobe pulmonary arteries encased by tumor mass, extensive infiltrate in the left upper lobe lingula, narrowing of the left upper lobe bronchus which appears essentially occluded with significant narrowing of the bronchus in the lingula and left upper lobe. No aneurysm or dissection , elevated left diaphragm consistent with atelectasis , mass extends to the base of the neck, left side. Multiple low-density areas throughout the liver consistent with metastatic disease, largest in the left hepatic lobe measuring 8 cm.Pulmonary and oncology consulted. Speech therapy consulted for swallow evaluation. VSS. Afebrile, mild elevation in WBC, 11.5.CBC, CMP unremarkable with the exception of mild elevation of AST, alk phos. Denies any chest pain, palpitations. 03/10/2019 yesterday unable to lie flat for MRI related to shortness of breath.lung mass Biopsy pending. Surgery consulted for PEG tube placement today. Afebrile, mild tachycardia, vital signs stable. Remains hoarse, whispering. Maintaining O2 sats in the 90s on 2 L nasal cannula. Denies pain; denies abdominal pain denies chest pain, palpitations. 03/11/2019NPO, scheduled for PEG tube placement today. Underwent biopsy yesterday, complained of left shoulder pain throughout the night, received To [facility]. Left shoulder area discomfort persists.biopsy results pending .VSS. 03/12/2019 status post PEG tube placement yesterday, tolerated procedure well. Complains of discomfort at the insertion site. Left shoulder pain has resolved. Biopsy pathology pending. Vital signs stable. Maintaining O2 sats in the 90s on 2 L nasal cannula O2. Afebrile, normal WBC. 03/13/2019 Tube feeds initiated at 30/40 this morning . Complains of discomfort at PEG tube site, nausea without emesis. Residuals of 180. Reglan added to med regime. Tube feeds placed on hold, PEG tube to dependent drainage.Maintained on strict aspiration precautions. Feels better today, slept well. Pathology pending. Denies chest pain, palpitations or increased shortness of breath. Denies lightheadedness, dizziness or focal deficits. Evaluated by PT, home with home care recommended at discharge. 03/16/2019 tube feeds have been resumed currently at 10 with goal of 40, residuals ranging from 10-30. Mild nausea, no emesis. Denies abdominal pain. No feeding advancement at this time as per surgery. Unable to lay flat.Maintaining O2 sats of low 90s on 2 L nasal cannula. Preliminary left neck biopsy reporting consistent with squamous cell CA, final report pending. 03/17/2019 left neck mass for biopsy /final pathology reporting poorly differentiated non-small cell CA, consistent with metastatic large cell n euroendocrine carcinoma. Further workup outpatient with oncology as advised. Complains of nausea. Tubefeeds currently at 20/40 with minimal residuals of 5 MLS. Complains of increased shortness of breath this morning, accessory muscle use. Congested gurgly cough, occasionally productive of white sputum. Afebrile. Vital signs stable, maintaining O2 sats in the low 90s on 2 L nasal cannula. Objective - Vital Signs Vital signs: Vital Signs Temp 98.3 F 03/17/19 07:00 Pulse 94 03/17/19 11:51 Resp 16 03/17/19 07:00 BP 103/68 03/17/19 07:00 Pulse Ox 92 L 03/17/19 07:00 Intake & Output 03/16/19 03/17/19 03/17/19 18:59 06:59 18:59 Intake Total 260 700 160 Balance 260 700 160 Weight 80 kg 78.9 kg Intake: Intake, IV Titration 200 Amount Sodium Chloride 0.9% 1, 200 000 ml @ 20 mls/hr IV . Q24H [facility] Rx#:[id number] Oral 400 Tube Feeding 140 100 160 Other 120 Other: # Voids 2 - Exam VITAL SIGNS: As above GENERAL: Sitting up in bed, no acute distress. HEENT: Conjunctivae normal. eyes normal. NECK: No JVD. No thyroid enlargement. Left posterior cervical lymphadenopathy with mild trachea deviation to the right. CARDIOVASCULAR: S1, S2 regular. No murmur RESPIRATION: Breath sounds diminished in the bases. No rhonchi,crackles, left basilar expiratory wheezing. ABDOMEN: Soft, nondistended, minimal diffuse tenderness, PEG tube present. No guarding. no masses palpable. Bowel sounds heard. LEGS: No edema. no swelling PSYCHIATRY: Alert and oriented X3, mood and affect normal. NERVOUS SYSTEM: Cranial N 2-12 grossly normal. Moves all 4 limbs. Diffuse weakness, No focal deficits. Strength and sensation grossly intact. Skin: no rash, no clubbing, no cyanosis. - Labs CBC & Chem 7: 03/17/19 08:17 03/17/19 08:17 Labs: Abnormal Lab Results - Last 24 Hours (Table) 03/17/19 Range/Units 08:17 Creatinine 0.49 L (0.52-1.04) mg/dL Glucose 107 H (74-99) mg/dL Assessment and Plan Assessment: -Dyspnea, large left-sided chest mass consistent with primary tumor of left upper lobe, with suspected metastases to the liver as per CT. -Cervical adenopathy,left, status post biopsy of left neck mass, pathology pending. Pathology reporting poorly differentiated non-small cell CA, consistent with metastatic large cell neuroendocrine carcinoma. Further ou tpatient workup/treatment as advised per oncology. -Vocal cord paralysis with hoarseness -Chronic COPD, emphysema -Acute hypoxic respiratory failure secondary to the above -Ongoing, long-term nicotine dependence -Dysphagia, suspect tumor involvement -Hypoalbuminemia with weight loss, mild to moderate protein calorie malnutrition secondary to the above -Status post PEG tube placement Plan: Continue current medication regime , Reglan, monitoring and symptomatic treatment.Tube feeds increased to 30, close monitoring of residuals, Strict aspiration precautions. Further workup/treatment options outpatient with oncology as advised. Prognosis guarded given multiple complex medical issues. The impression and plan of care has been dictated as directed. : I performed a history and examination of this patient, discussed the same with the dictator. I agree with the dictator's note ,documented as a scribe. Any additional findings or plans will be noted.
--- NOTE | 2019-03-17 14:06 | P.PN ---
<Neema Vides Cheryl - Last Filed: 03/17/19 14:04> Subjective Progress Note Date: 03/17/19 CHIEF COMPLAINT: PEG tube insertion HISTORY OF PRESENT ILLNESS: Patient is status post PEG tube insertion. Patient denies abdominal pain. Tube feeding infusing at 20cc/hr. Minimal residuals. Patient does report some mild nausea. Denies emesis. PHYSICAL EXAM: VITAL SIGNS: Reviewed. GENERAL: Well-developed in no acute distress. HEENT: No sclera icterus. Extraocular movements grossly intact. Moist buccal mucosa. Head is atraumatic, normocephalic. Voice is quiet and hoarse. ABDOMEN: Soft. Nondistended. Nontender. PEG tube intact. NEUROLOGIC: Alert and oriented. ASSESSMENT: 1. Large left lung mass extending into the neck, with encasement of left lower pulmonary arteries, narrowing of the left upper lobe brochus with near occlusion, and significant narrowing of the bronchus and the lingula and the left upper lobe. CT also reveals likely metastasis to the liver 2. Dysphagia 3. Unintentional weight loss, 70 lbs since November PLAN: Continue tube feedings Slowly advance as tolerated Continue to check residuals q4 hours. Notify provider for increased residual. Nurse practitioner note has been reviewed by physician. Signing provider agrees with the documented findings, assessment, and plan of care. Objective - Vital Signs Vital signs: Vital Signs Temp 98.3 F 03/17/19 07:00 Pulse 94 03/17/19 11:51 Resp 16 03/17/19 07:00 BP 103/68 03/17/19 07:00 Pulse Ox 92 L 03/17/19 07:00 Intake & Output 03/16/19 03/17/19 03/17/19 18:59 06:59 18:59 Intake Total 260 700 160 Balance 260 700 160 Weight 80 kg 78.9 kg Intake: Intake, IV Titration 200 Amount Sodium Chloride 0.9% 1, 200 000 ml @ 20 mls/hr IV . Q24H [facility] Rx#:[id number] Oral 400 Tube Feeding 140 100 160 Other 120 Other: # Voids 2 - Labs CBC & Chem 7: 03/17/19 08:17 03/17/19 08:17 Labs: Abnormal Lab Results - Last 24 Hours (Table) 03/17/19 Range/Units 08:17 Creatinine 0.49 L (0.52-1.04) mg/dL Glucose 107 H (74-99) mg/dL <Sid Jackson - Last Filed: 03/17/19 17:44> Subjective As above. Patient tolerating tube feeds at 20 mL per hour. There advancing to 30 mL shortly. Her goal is 40. She is tolerating diet along with that. Minimal pain at PEG tube site she states. Gradually improving daily. Objective - Vital Signs Vital signs: Vital Signs Temp 98.7 F 03/17/19 15:48 Pulse 101 H 03/17/19 16:01 Resp 16 03/17/19 16:01 BP 110/70 03/17/19 15:48 Pulse Ox 95 03/17/19 15:50 Intake & Output 03/16/19 03/17/19 03/17/19 18:59 06:59 18:59 Intake Total 260 700 220 Balance 260 700 220 Weight 80 kg 78.9 kg Intake: Intake, IV Titration 200 Amount Sodium Chloride 0.9% 1, 200 000 ml @ 20 mls/hr IV . Q24H [facility] Rx#:[id number] Oral 400 Tube Feeding 140 100 220 Other 120 Other: # Voids 2 # Bowel Movements 1 - Labs CBC & Chem 7: 03/17/19 08:17 03/17/19 08:17 Labs: Abnormal Lab Results - Last 24 Hours (Table) 03/17/19 Range/Units 08:17 Creatinine 0.49 L (0.52-1.04) mg/dL Glucose 107 H (74-99) mg/dL
[2019-03-17] MEDS ORDERED: LORazepam 1 MG TAB PO PRN (16:30)
--- NOTE | 2019-03-17 16:33 | P.PN ---
Subjective Progress Note Date: 03/17/19 Principal diagnosis: Lung Mass Discussed positive path with patient, discussed need MRI, ordered Ativan prior. She has new palpable lump on right lower back. Objective - Vital Signs Vital signs: Vital Signs Temp 98.7 F 03/17/19 15:48 Pulse 101 H 03/17/19 16:01 Resp 16 03/17/19 16:01 BP 110/70 03/17/19 15:48 Pulse Ox 95 03/17/19 15:50 Intake & Output 03/16/19 03/17/19 03/17/19 18:59 06:59 18:59 Intake Total 260 700 220 Balance 260 700 220 Weight 80 kg 78.9 kg Intake: Intake, IV Titration 200 Amount Sodium Chloride 0.9% 1, 200 000 ml @ 20 mls/hr IV . Q24H [facility] Rx#:[id number] Oral 400 Tube Feeding 140 100 220 Other 120 Other: # Voids 2 - Exam - Constitutional General appearance: Present: cooperative, no acute distress, obese - EENT Eyes: Present: anicteric sclerae, edentulous, EOMI - Respiratory Respiratory: bilateral: CTA - Cardiovascular Heart sounds: normal: S1, S2 Abnormal Heart Sounds: Present: systolic murmur - Peripheral edema leg Peripheral Edema: bilateral: None - Gastrointestinal General gastrointestinal: Present: normal bowel sounds, soft - Neurologic Neurologic: Present: CNII-XII intact - Musculoskeletal Musculoskeletal: Present: strength equal bilaterally - Psychiatric Psychiatric: Present: A&O x's 3, appropriate affect, intact judgment & insight Palpable mass on right lower back - Labs CBC & Chem 7: 03/17/19 08:17 03/17/19 08:17 Labs: Abnormal Lab Results - Last 24 Hours (Table) 03/17/19 Range/Units 08:17 Creatinine 0.49 L (0.52-1.04) mg/dL Glucose 107 H (74-99) mg/dL Assessment and Plan Plan: Mass of left lung Status post FNA of the left anterior cervical chain lymph node mass. Pending pathology this am when patient seen, althoug now returned and appears to be non-small cell, Large cell neuroendocrine type . - PET scan is scheduled for outpatient next Saturday. - Staff is monitoring the patient while she is in the hospital. - They will contact her on discharge with instructions. - At that time they will make a follow-up appointment with Dr. Zhao status post scans to discuss pathology/diagnosis, prognosis, treatment options. - Patient verbalized understanding the plan. - Patient is unable to lay flat due to severe orthopnea for MRI or CT of the brain. This will be followed up in the outpatient setting. Palpable Lump on right lower back - PET scan as outpatient MRI brain ativan prior discussed with patient
[2019-03-18] MEDS: METOCLOPRAMIDE 5 MG/ML 2 ML VIAL IVP SCH ×2 (05:44→13:46)
[2019-03-18] MEDS: IPRATROPIUM-ALBUTEROL 3 ML NEB INHALATION SCH ×3 (08:44→16:23)
--- NOTE | 2019-03-18 12:40 | P.PN ---
<Neema Vides - Last Filed: 03/18/19 12:38> Subjective Progress Note Date: 03/18/19 CHIEF COMPLAINT: PEG tube insertion HISTORY OF PRESENT ILLNESS: Patient is status post PEG tube insertion. Patient denies abdominal pain. Tube feeding infusing at 30cc/hr. Minimal residuals. Patient reports nausea has resolved. PHYSICAL EXAM: VITAL SIGNS: Reviewed. GENERAL: Well-developed in no acute distress. HEENT: No sclera icterus. Extraocular movements grossly intact. Moist buccal mucosa. Head is atraumatic, normocephalic. Voice is quiet and hoarse. ABDOMEN: Soft. Nondistended. Nontender. PEG tube intact. NEUROLOGIC: Alert and oriented. ASSESSMENT: 1. Large left lung mass extending into the neck, with encasement of left lower pulmonary arteries, narrowing of the left upper lobe brochus with near occl usion, and significant narrowing of the bronchus and the lingula and the left upper lobe. CT also reveals likely metastasis to the liver 2. Dysphagia 3. Unintentional weight loss, 70 lbs since November PLAN: Advance tube feedings to 40cc/hr today, which is patients goal rate Continue to check residuals q4 hours. Notify provider for increased residual. Nurse practitioner note has been reviewed by physician. Signing provider agrees with the documented findings, assessment, and plan of care. Objective - Vital Signs Vital signs: Vital Signs Temp 97.6 F 03/18/19 07:19 Pulse 80 03/18/19 12:03 Resp 18 03/18/19 07:19 BP 107/66 03/18/19 07:19 Pulse Ox 91 L 03/18/19 07:19 Intake & Output 03/17/19 03/18/19 03/18/19 18:59 06:59 18:59 Intake Total 220 310 90 Balance 220 310 90 Weight 78.5 kg Intake: Oral 100 Tube Feeding 220 210 90 Other: # Voids 1 # Bowel Movements 1 1 - Labs CBC & Chem 7: 03/17/19 08:17 03/17/19 08:17 <Sid Jackson - Last Filed: 03/18/19 21:36> Subjective As above. Doing well. We'll sign off. Objective - Vital Signs Vital signs: Vital Signs Temp 98.7 F 03/18/19 15:45 Pulse 88 10/23/19 16:32 Resp 24 03/18/19 15:45 BP 114/75 03/18/19 15:45 Pulse Ox 98 03/18/19 15:45 Intake & Output 03/18/19 03/18/19 03/19/19 06:59 18:59 06:59 Intake Total 310 90 Balance 310 90 Weight 78.5 kg 78.5 kg Intake: Oral 100 Tube Feeding 210 90 Other: # Voids 1 1 # Bowel Movements 1 - Labs CBC & Chem 7: 03/17/19 08:17 03/17/19 08:17
[2019-03-18 15:47] VITALS: BP 114/75; RESP 24; TEMP 98.7
[2019-03-18 16:16] VITALS: BMI 27.9
[2019-03-18 16:32] VITALS: PULSE 88
--- NOTE | 2019-03-18 16:38 | P.DS ---
Providers Date of admission: 03/09/19 04:20 Expected date of discharge: 03/18/19 Attending physician: Ghanshyam Romero Consults: 03/09/19 04:21 Consult Physician Routine Consulting Provider: Nito Martines Consult Reason/Comments: lung mass Do you want consulting provider notified?: Yes Consult Physician Routine Consulting Provider: Wayne Zhao Consult Reason/Comments: lung mass Do you want consulting provider notified?: Yes 03/09/19 14:51 Consult Physician Routine Consulting Provider: Sid Jackson Consult Reason/Comments: PEG tube insertion Do you want consulting provider notified?: Yes Primary care physician: Ghanshyam Romero [facility] Hospital Course: Final Diagnoses: -Dyspnea, large left-sided chest mass consistent with primary tumor of left upper lobe, with suspected metastases to the liver as per CT. -Cervical adenopathy,left, status post biopsy of left neck mass, pathology pending. Pathology reporting poorly differentiated non-small cell CA, consistent with metastatic large cell neuroendocrine carcinoma. Further outpatient workup/treatment as advised per oncology. 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 Reports progressive worsening of dysphagia/choking on both food/liquids, a 70 pound weight loss in the last 3 months, loss of voice now down to a whisper. Denies hemoptysis .Patient recently diagnosed with large left apical mass extending into the mediastinum with mediastinal lymphadenopathy, large left supraclavicular adenopathy per outpatient CT on . PCP had arranged for patient to follow-up with pulmonary for further follow- up including biopsy. Patient had not yet seen pulmonary outpatient. Chest x-ray reported large mass in the left pulmonary hilum with malignancy appearing worse compared to prior exam. CT on admission reported large left-sided chest mass, 9.6X 13.5 cm, consistent with primary tumor of the left upper lobe with encasement of the left subclavian artery, left carotid artery, and trachea with subcarinal mass extension, narrowing of the left upper and left lower lobe pulmonary arteries encased by tumor mass, extensive infiltrate in the left upper lobe lingula, narrowing of the left upper lobe bronchus which appears essentially occluded with significant narrowing of the bronchus in the lingula and left upper lobe. No aneurysm or dissection , elevated left diaphragm consistent with atelectasis , mass extends to the base of the neck, left side. Multiple low-density areas throughout the liver consistent with metastatic disease, largest in the left hepatic lobe measuring 8 cm.Pulmonary and oncology consulted. Speech therapy consulted for swallow evaluation. VSS. Afebrile, mild elevation in WBC, 11.5.CBC, CMP unremarkable with the exception of mild elevation of AST, alk phos. Denies any chest pain, palpitations. 03/10/2019 yesterday unable to lie flat for MRI related to shortness of breath.lung mass Biopsy pending. Surgery consulted for PEG tube placement today. Afebrile, mild tachycardia, vital signs stable. Remains hoarse, whispering. Maintaining O2 sats in the 90s on 2 L nasal cannula. Denies pain; denies abdominal pain denies chest pain, palpitations. 03/11/2019NPO, scheduled for PEG tube placement today. Underwent biopsy yesterday, complained of left shoulder pain throughout the night, received Toradol. Left shoulder area discomfort persists.biopsy results pending .VSS. 03/12/2019 status post PEG tube placement yesterday, tolerated procedure well. Complains of discomfort at the insertion site. Left shoulder pain has resolved. Biopsy pathology pending. Vital signs stable. Maintaining O2 sats in the 90s on 2 L nasal cannula O2. Afebrile, normal WBC. 03/13/2019 Tube feeds initiated at 30/40 this morning . Complains of discomfort at PEG tube site, nausea without emesis. Residuals of 180. Reglan added to med regime. Tube feeds placed on hold, PEG tube to dependent drainage.Maintained on strict aspiration precautions. Feels better today, slept well. Pathology pending. Denies chest pain, palpitations or increased shortness of breath. Denies lightheadedness, dizziness or focal deficits. Evaluated by PT, home with home care recommended at discharge. 03/16/2019 tube feeds have been resumed currently at 10 with goal of 40, residuals ranging from 10-30. Mild nausea, no emesis. Denies abdominal pain. No feeding advancement at this time as per surgery. Unable to lay flat.Maintaining O2 sats of low 90s on 2 L nasal cannula. Preliminary left neck biopsy reporting consistent with squamous cell CA, final report pending. 03/17/2019 left neck mass for biopsy /final pathology reporting poorly differentiated non-small cell CA, consistent with metastatic large cell neuroendocrine carcinoma. Further workup outpatient with oncology as advised. Complains of nausea. Tubefeeds currently at 20/40 with minimal residuals of 5 MLS. Complains of increased shortness of breath this morning, accessory muscle use. Congested gurgly cough, occasionally productive of white sputum. Afebrile. Vital signs stable, maintaining O2 sats in the low 90s on 2 L nasal cannula. Significant clinical improvement. Cleared by all consults for discharge. Patient is being discharged home with home care in a stable condition with guarded prognosis. - Exam GENERAL: Alert and oriented 3, no acute distress. HEENT: Conjunctivae normal. eyes normal. NECK: No JVD. No thyroid enlargement. Left posterior cervical lymphadenopathy with mild trachea deviation to the right. CARDIOVASCULAR: S1, S2 regular. No murmur RESPIRATION: Breath sounds diminished in the bases. ABDOMEN: Soft, nondistended, minimal diffuse tenderness, PEG tube present. Bowel sounds heard. NERVOUS SYSTEM: No focal deficits. The impression and plan of care has been dictated as directed. : I performed a history and examination of this patient, discussed the same with the dictator. I agree with the dictator's note ,documented as a scribe. Any additional findings or plans will be noted. Patient Condition at Discharge: Stable Plan - Discharge Summary Discharge Rx Participant: Yes New Discharge Prescriptions: No Action No Known Home Medications Discharge Medication List No Known Home Medications 03/09/19 [History] Follow up Appointment(s)/Referral(s): Sid Jackson MD [Medical Doctor] - 03/26/19 10:20 am Wayne Zhao MD [STAFF PHYSICIAN] - 10 Days (office will call appointment time) Ghanshyam Romero DO [Primary Care Provider] - 03/26/19 1:40 pm [facility],Equipment [NON-STAFF] - As Needed [facility], [NON-STAFF] - [facility], [REFERRING] - Torri Mendiola MD [STAFF PHYSICIAN] - 03/27/19 3:15 pm (With Eleanor Cage) Patient Instructions/Handouts: How to Use and Care for Your PEG Tube (DC), Dyspnea (DC), Aspiration Precautions (DC) Activity/Diet/Wound Care/Special Instructions: 1. PET scan will be scheduled as an outpatient - Dr. Zhao's office will call with appointment date and time. 2. Wear 2 Liters oxygen via Nasal Cannula. The [employer] website delivered portable tank to patient's room and will deliver concentrator to patient's home tonight. 3. Tube feeding to run at 40 cc/hour - 4. [facility] will deliver tube feeding supplies tonight to patient's home. 5. [facility] will call to set up a visit for tomorrow to teach patient and family how to manage the tube feedings. 6. Patient to take in 1200cc of free water daily whether by tube feeding or by mouth with nectar thick consistency. Thickener can be purchased at [employer] or [employer]- follow packet instructions for nectar-thick consistency.
--- NOTE | 2019-03-25 06:50 | CDI ---
Documentation Clarification Form Date: 03/25/19 From: Rod Kaminski Phone: call [phone] Admit Date: 03/09/2019 4:20:00 AM Patient Name: Heena Tellez Visit Number: [id number] Discharge Date: 03/18/2019 5:42:00 PM ATTENTION: The Clinical Documentation Specialists (CDI) and [facility] Coding Staff appreciate your assistance in clarifying documentation. Please respond to the clarification below the line at the bottom and electronically sign. The CDI & [facility] Coding staff will review the response and follow-up if needed. Please note: Queries are made part of the Legal Health Record. If you have any questions, please contact the author of this message via ITS. Dr. Braxton Porter, Documentation in the Operative Report included:Utilizing a 18-gauge core biopsy needle to passes were made into the large left neck mass History/Risk factors:Chest mass, neck mass. Pre-Operative Diagnosis: neck mass Postoperative Diagnosis: Biopsy results shows Neuro endocrine carcinoma. Successful ultrasound guided core biopsy of a left neck mass. In order to capture the severity of condition, please specify the following: Anatomical site of the body system on which the procedure is performed Neck SKIN Neck Subcutaneous tissue & Fascia Neck Muscle Unable to determine depth MTDD
== END 2019-03-18 17:42 | disposition home health service (06) | DRG 829 ==
LOC: EC 01:26 → 4SSUR 04:20
PROVIDERS: ADMIT Family Medicine; ATTEND Family Medicine
PROC: 07B23ZX Excision of Left Neck Lymphatic, Percutaneous Approach, Diagnostic (ICD-10-PCS; principal; 2019-03-10)
PROC: 3E0H76Z Introduction of Nutritional Substance into Lower GI, Via Natural or Artificial Opening (ICD-10-PCS; 2019-03-11 08:00)
PROC: 0DB98ZX Excision of Duodenum, Via Natural or Artificial Opening Endoscopic, Diagnostic (ICD-10-PCS; 2019-03-11 08:00)
PROC: 0DH63UZ Insertion of Feeding Device into Stomach, Percutaneous Approach (ICD-10-PCS; 2019-03-11 08:00)
DX: C7A.8 Other malignant neuroendocrine tumors (principal); J96.01 Acute respiratory failure with hypoxia; E44.0 Moderate protein-calorie malnutrition; J98.11 Atelectasis; J90 Pleural effusion, not elsewhere classified; C7B.8 Other secondary neuroendocrine tumors; R13.10 Dysphagia, unspecified; J38.00 Paralysis of vocal cords and larynx, unspecified; K29.80 Duodenitis without bleeding; R00.0 Tachycardia, unspecified; J98.09 Other diseases of bronchus, not elsewhere classified; R59.0 Localized enlarged lymph nodes; K31.84 Gastroparesis; R49.0 Dysphonia; M25.512 Pain in left shoulder; E66.9 Obesity, unspecified; F17.200 Nicotine dependence, unspecified, uncomplicated; J43.9 Emphysema, unspecified; Z88.0 Allergy status to penicillin; Z91.041 Radiographic dye allergy status; Z91.012 Allergy to eggs; Z98.890 Other specified postprocedural states; Z90.49 Acquired absence of other specified parts of digestive tract; Z98.49 Cataract extraction status, unspecified eye; Z68.27 Body mass index [BMI] 27.0-27.9, adult
CPT/HCPCS: 21550; 36415; 43239; 43246; 71046; 71260; 76536; 80048; 80053; 83735; 84443; 84484; 85025; 85610; 85730; 87040; 88305; 88341; 88342; 93005; 94640; 94760; 96361; 96374; 96375; 99285

== ENCOUNTER → 2019-03-20 | Outpatient (CLI) | payer MEDICARE ==
--- NOTE | 2019-03-20 08:55 | MR ---
EXAMINATION TYPE: MR brain wo/w con DATE OF EXAM: 03/20/2019 COMPARISON: NONE HISTORY: Lung CA non-small cell, to rule out metastatic lesion. Initial staging study. TECHNIQUE: Multiplanar, multisequence images of the brain and brainstem is performed without and with IV contras t, utilizing 7.5 mL intravenous Gadavist . FINDINGS: Diffusion weighted images demonstrate no evidence of a recent infarct or other diffusion ab normality. There is no worrisome extra-axial fluid collection. There is diffuse ventricular and sulc al prominence. There are scattered foci of T2 intensity throughout the white matter bilaterally. Find ings are consistent with [id number] diffuse cerebral lateral feeding chronic small vessel ische malachi changes. Suspect old lacunar infarct left coronal radiata axial image 19 series 301. Midline structures demonstrate normal morphology. The craniocervical junction appears within normal limits. Post contrast images demonstrate several ring-enhancing lesions. For reference is 9 x 9 x 8 mm lesion deep right frontal white matter at level of centrum semiovale a xial image 50 and coronal image 49. There is second smaller 6 x 6 x 5 mm high left frontal parietal junction lesion axial image 57. There is 6 mm enhancing lesion high left frontal subcortical level axial image 63. There is 4 x 6 mm posterior right temporal lesion axial image 26 and sagittal image 109. There are multiple lesions throughout the cerebellum, I estimate approximately 16 cerebellar lesions with largest lesion right inferior posterior aspect measuring 1.5 x 1.3 x 1.2 cm axial image 15 and s agittal image 96. I estimate at least 5-10 more scattered lesions throughout the bilateral brain parenchyma involving f rontal parietal and occipital lobes with 8 mm left occipital lobe lesion noted centrally axial image 29 for reference. The dural venous sinuses appear patent. The visualized sinuses are clear and the globes are intact. IMPRESSION: Diffuse brain metastatic disease with estimated around 30 scattered lesions as detailed a rei.
== END | disposition home or self-care (01) ==
LOC: RADMRIMAIN 07:50
PROVIDERS: ATTEND Internal Medicine Hematology & Oncology
DX: C34.12 Malignant neoplasm of upper lobe, left bronchus or lung (principal); C79.31 Secondary malignant neoplasm of brain; G93.89 Other specified disorders of brain
CPT/HCPCS: 70553; A9585

== ENCOUNTER → 2019-03-21 | Outpatient (CLI) | payer MEDICARE ==
--- NOTE | 2019-03-23 07:14 | PE ---
EXAMINATION TYPE: PET CT fusion skull to thigh DATE OF EXAM: 03/21/2019 COMPARISON: 03/09/2019 CT chest, CT abdomen pelvis 10/31/2014 Prior PET/CT: None HISTORY: Left lung mass TECHNIQUE: Following the intravenous administration of 11.97 mCi of F-18 FDG, whole body images are performed with the intention from the skull base to the midthigh. Images were terminated within the upper abdomen due to patient vomiting and refusal to continue. Images are reviewed on the computer in the coronal, axial, and sagittal planes. Reconstructed rotating images are created on [facility] orkstation and reviewed on the computer. A localization and attenuation correction CT is performed in conjunction with the PET scan. DLP: 462.42 mGycm SCAN: Initial Blood glucose: 110 mg/dL Average Mediastinum SUV: 1.66 Average Liver SUV: 1.91 FINDINGS: NECK: There is intense uptake within the left neck which appears to be direct extension from the lef t apex. Image 47, SUV value of 17.14. THORAX: There is intense uptake within the left apex mass. This extends in the mediastinum in the lef t hilar region. This has an SUV value of 11.93. There is a focus of radiotracer within the subcutaneous tissues lateral left chest wall, with an SUV value of 17.61 image 95 There is a focus of radiotracer accumulation at the anterior left chest base. Image 98, SUV value of 9.61. ABDOMEN: There is intense uptake within the liver suspicious for metastatic disease. This is incomple tely evaluated. The majority of the abdomen is not scanned at this time. PELVIS: Terminated prior to scanning OSSEOUS STRUCTURES: Visualized osseous structures appear within normal limits. LOCALIZATION CT: Encasement narrowing of the left main pulmonary artery. There is a minimal left pleural effusion. Met astatic lesions are identified within the left and right lobes liver COMPARISON: Masses correspond to findings on CT chest 03/09/2019 IMPRESSION: 1. Intense uptake through the superior left apical mass compatible with neoplasm. 2. Intense uptake within the left neck compatible with metastatic disease. 3. 2 additional foci of metastatic disease may be within the lateral left subcutaneous tissues and wi thin the region of the left lingula cardiophrenic angle. This appears to be outside the lung.
== END ==
LOC: RADPETMAIN 09:16
PROVIDERS: ATTEND Internal Medicine Hematology & Oncology
DX: R91.8 Other nonspecific abnormal finding of lung field (principal); R93.89 Abnormal findings on diagnostic imaging of other specified body structures
CPT/HCPCS: 78815; A9552

== ENCOUNTER 2019-03-28 15:22 | Inpatient (IN) | payer MEDICARE ==
[2019-03-28] MEDS ORDERED: IPRATROPIUM-ALBUTEROL 3 ML NEB INHALATION STA (15:52)
--- NOTE | 2019-03-28 16:01 | ED ---
General Adult HPI - General Chief complaint: Shortness of Breath Stated complaint: RAJAN Time Seen by Provider: 03/28/19 15:38 Source: EMS Mode of arrival: EMS Limitations: no limitations - History of Present Illness Initial comments: Patient is a 68-year-old female with history of COPD, stomach, brain and lung cancer presenting to the emergency Department with a chief complaint of shortness of breath and abdominal pain. Patient was brought to ED via EMS. Patient reports that over the last week she has gradually developed increase in shortness of breath with intermittent nausea and vomiting. Patient denies chest pain or coughing. Patient does use oxygen at home and albuterol nebulized treatments. Patient also reports epigastric abdominal pain that has developed over the last day and is dull in nature. Patient is a PEG tube in reports the p ain is exacerbated whenever she receives fluids. Patient reports the tube is not clogged. Patient is also complaining of increased urgency or frequency but no dysuria over the past 2 days.. Patient denies any night sweats fevers or chills. Patient denies any cough, headache blurry vision. No focal neural deficits - Related Data Home Medications Medication Instructions Recorded Confirmed Albuterol Inhaler [Ventolin Hfa 2 puff INHALATION RT-QID 03/28/19 03/28/19 Inhaler] Albuterol Nebulized [Ventolin 2.5 mg INHALATION RT-TID 03/28/19 03/28/19 Nebulized] Dexamethasone [Hexadrol] See Taper PO DIRECTED 03/28/19 03/28/19 Fluticasone Propion/Salmeterol 1 puff INHALATION RT-BID 03/28/19 03/28/19 [Wixela 250-50 Inhub] Allergies Allergy/AdvReac Type Severity Reaction Status Date / Time Iodinated Contrast Media Allergy Dyspnea Verified 03/28/19 17:40 Penicillins Allergy Dyspnea Verified 03/28/19 17:40 egg AdvReac Nausea Verified 03/28/19 17:40 Review of Systems ROS Statement: Those systems with pertinent positive or pertinent negative responses have been documented in the HPI. ROS Other: All systems not noted in ROS Statement are negative. Past Medical History Past Medical History: COPD Additional Past Medical History / Comment(s): emphysema History of Any Multi-Drug Resistant Organisms: None Reported Past Surgical History: Cholecystectomy Additional Past Surgical History / Comment(s): "i had jaw surgery", cataracts Past Anesthesia/Blood Transfusion Reactions: No Reported Reaction Past Psychological History: No Psychological Hx Reported Smoking Status: Former smoker Past Alcohol Use History: None Reported Past Drug Use History: None Reported - Past Family History Father History Unknown: Yes Family Medical History: Unable to Obtain General Exam Limitations: no limitations General appearance: alert, in no apparent distress Head exam: Present: atraumatic, normocephalic, normal inspection Eye exam: Present: normal appearance Pupils: Present: normal accommodation ENT exam: Present: normal exam, normal oropharynx, mucous membranes moist, TM's normal bilaterally, normal external ear exam Neck exam: Present: normal inspection, full ROM Respiratory exam: Present: wheezes Cardiovascular Exam: Present: regular rate, normal rhythm, normal heart sounds GI/Abdominal exam: Present: soft, tenderness (Epigastric). Absent: distended, guarding, rebound Extremities exam: Present: normal inspection, full ROM Back exam: Present: normal inspection, full ROM Neurological exam: Present: alert, oriented X3 Psychiatric exam: Present: normal affect, normal mood Skin exam: Present: warm, intact, normal color Course Vital Signs 03/28/19 03/28/19 03/28/19 15:29 16:00 16:02 Temperature 97.0 F L Pulse Rate 106 H 108 H 109 H Respiratory 25 H 25 H 22 Rate Blood Pressure 101/82 101/82 O2 Sat by Pulse 98 Oximetry 03/28/19 03/28/19 16:10 16:30 Temperature Pulse Rate 110 H 111 H Respiratory 22 24 Rate Blood Pressure 108/87 O2 Sat by Pulse 96 Oximetry EKG Findings - EKG Comments: EKG Findings:: Sinus tachycardia, ST abnormality noted in V6. Ventricular rate 106, DC interval 150, QRS duration 72, QT/QTC 346/459 Medical Decision Making - Medical Decision Making Patient is a 68-year-old female presenting to emergency Department with a chief complaint of shortness of breath and abdominal pain. Both symptoms have been here for approximately a day. Patient was given a breathing treatment and did have some improvement of symptoms. On Auscultation she did have resolution of the wheezing. Patient continues to have epigastric abdominal pain and labs indicate elevation of lipase at 1200. I suspect the patient to have pancreatitis. Patient was made nothing by mouth and given fluids, antiemetics and analgesia. Patient has a lactate of 3.5. Vitals are stable except for a mild tachycardia. EKG shows sinus tachycardia. UA shows elevated red blood ce lls and white blood cells with leukocyte esterase which could explain the possible UTI type symptoms that she is asked parents and. D-dimer pending. Patient has no chest pain. Patient will be admitted for further medical management. Admitting physician is Dr. Lopez. Case discussed with physician. - Lab Data Result diagrams: 03/28/19 15:51 03/28/19 15:51 Lab Results 03/28/19 03/28/19 03/28/19 Range/Units 15:51 15:51 15:51 WBC 12.7 H (3.8-10.6) k/uL RBC 4.53 (3.80-5.40) m/uL Hgb 13.4 (11.4-16.0) gm/dL Hct 40.9 (34.0-46.0) % MCV 90.3 (80.0-100.0) fL MCH 29.6 (25.0-35.0) pg MCHC 32.8 (31.0-37.0) g/dL RDW 14.0 (11.5-15.5) % Plt Count 364 (150-450) k/uL Neutrophils % 86 % Lymphocytes % 3 % Monocytes % 5 % Eosinophils % 1 % Basophils % 3 % Neutrophils # 10.9 H (1.3-7.7) k/uL Lymphocytes # 0.4 L (1.0-4.8) k/uL Monocytes # 0.7 (0-1.0) k/uL Eosinophils # 0.1 (0-0.7) k/uL Basophils # 0.4 H (0-0.2) k/uL PT 10.8 (9.0-12.0) sec INR 1.0 (<1.2) APTT 22.3 (22.0-30.0) sec Sodium 132 L (137-145) mmol/L Potassium 5.1 (3.5-5.1) mmol/L Chloride 96 L (98-107) mmol/L Carbon Dioxide 27 (22-30) mmol/L Anion Gap 9 mmol/L BUN 19 H (7-17) mg/dL Creatinine 0.54 (0.52-1.04) mg/dL Est GFR (CKD-EPI)AfAm >90 (>60 ml/min/1.73 sqM) Est GFR (CKD-EPI)NonAf >90 (>60 ml/min/1.73 sqM) Glucose 151 H (74-99) mg/dL Plasma Lactic Acid Gaurav (0.7-2.0) mmol/L Calcium 9.2 (8.4-10.2) mg/dL Magnesium 2.4 H (1.6-2.3) mg/dL Total Bilirubin 0.4 (0.2-1.3) mg/dL AST 85 H (14-36) U/L ALT 48 (9-52) U/L Alkaline Phosphatase 164 H (38-126) U/L Troponin I (0.000-0.034) ng/mL Total Protein 7.6 (6.3-8.2) g/dL Albumin 3.4 L (3.5-5.0) g/dL Amylase (30-110) U/L Lipase (23-300) U/L Urine Color Urine Appearance (Clear) Urine pH (5.0-8.0) Ur Specific Patton (1.001-1.035) Urine Protein (Negative) Urine Glucose (UA) (Negative) Urine Ketones (Negative) Urine Blood (Negative) Urine Nitrite (Negative) Urine Bilirubin (Negative) Urine Urobilinogen (<2.0) mg/dL Ur Leukocyte Esterase (Negative) Urine RBC (0-5) /hpf Urine WBC (0-5) /hpf Urine WBC Clumps (None) /hpf Ur Squamous Epith Cells (0-4) /hpf Urine Bacteria (None) /hpf Urine Mucus (None) /hpf 03/28/19 03/28/19 03/28/19 Range/Units 15:51 15:51 16:00 WBC (3.8-10.6) k/uL RBC (3.80-5.40) m/uL Hgb (11.4-16.0) gm/dL Hct (34.0-46.0) % MCV (80.0-100.0) fL MCH (25.0-35.0) pg MCHC (31.0-37.0) g/dL RDW (11.5-15.5) % Plt Count (150-450) k/uL Neutrophils % % Lymphocytes % % Monocytes % % Eosinophils % % Basophils % % Neutrophils # (1.3-7.7) k/uL Lymphocytes # (1.0-4.8) k/uL Monocytes # (0-1.0) k/uL Eosinophils # (0-0.7) k/uL Basophils # (0-0.2) k/uL PT (9.0-12.0) sec INR (<1.2) APTT (22.0-30.0) sec Sodium (137-145) mmol/L Potassium (3.5-5.1) mmol/L Chloride (98-107) mmol/L Carbon Dioxide (22-30) mmol/L Anion Gap mmol/L BUN (7-17) mg/dL Creatinine (0.52-1.04) mg/dL Est GFR (CKD-EPI)AfAm (>60 ml/min/1.73 sqM) Est GFR (CKD-EPI)NonAf (>60 ml/min/1.73 sqM) Glucose (74-99) mg/dL Plasma Lactic Acid Gaurav 3.4 H* (0.7-2.0) mmol/L Calcium (8.4-10.2) mg/dL Magnesium (1.6-2.3) mg/dL Total Bilirubin (0.2-1.3) mg/dL AST (14-36) U/L ALT (9-52) U/L Alkaline Phosphatase (38-126) U/L Troponin I <0.012 (0.000-0.034) ng/mL Total Protein (6.3-8.2) g/dL Albumin (3.5-5.0) g/dL Amylase 61 (30-110) U/L Lipase 1275 H (23-300) U/L Urine Color Urine Appearance (Clear) Urine pH (5.0-8.0) Ur Specific Patton (1.001-1.035) Urine Protein (Negative) Urine Glucose (UA) (Negative) Urine Ketones (Negative) Urine Blood (Negative) Urine Nitrite (Negative) Urine Bilirubin (Negative) Urine Urobilinogen (<2.0) mg/dL Ur Leukocyte Esterase (Negative) Urine RBC (0-5) /hpf Urine WBC (0-5) /hpf Urine WBC Clumps (None) /hpf Ur Squamous Epith Cells (0-4) /hpf Urine Bacteria (None) /hpf Urine Mucus (None) /hpf 03/28/19 Range/Units 16:45 WBC (3.8-10.6) k/uL RBC (3.80-5.40) m/uL Hgb (11.4-16.0) gm/dL Hct (34.0-46.0) % MCV (80.0-100.0) fL MCH (25.0-35.0) pg MCHC (31.0-37.0) g/dL RDW (11.5-15.5) % Plt Count (150-450) k/uL Neutrophils % % Lymphocytes % % Monocytes % % Eosinophils % % Basophils % % Neutrophils # (1.3-7.7) k/uL Lymphocytes # (1.0-4.8) k/uL Monocytes # (0-1.0) k/uL Eosinophils # (0-0.7) k/uL Basophils # (0-0.2) k/uL PT (9.0-12.0) sec INR (<1.2) APTT (22.0-30.0) sec Sodium (137-145) mmol/L Potassium (3.5-5.1) mmol/L Chloride (98-107) mmol/L Carbon Dioxide (22-30) mmol/L Anion Gap mmol/L BUN (7-17) mg/dL Creatinine (0.52-1.04) mg/dL Est GFR (CKD-EPI)AfAm (>60 ml/min/1.73 sqM) Est GFR (CKD-EPI)NonAf (>60 ml/min/1.73 sqM) Glucose (74-99) mg/dL Plasma Lactic Acid Gaurav (0.7-2.0) mmol/L Calcium (8.4-10.2) mg/dL Magnesium (1.6-2.3) mg/dL Total Bilirubin (0.2-1.3) mg/dL AST (14-36) U/L ALT (9-52) U/L Alkaline Phosphatase (38-126) U/L Troponin I (0.000-0.034) ng/mL Total Protein (6.3-8.2) g/dL Albumin (3.5-5.0) g/dL Amylase (30-110) U/L Lipase (23-300) U/L Urine Color Yellow Urine Appearance Cloudy H (Clear) Urine pH 6.5 (5.0-8.0) Ur Specific Patton 1.027 (1.001-1.035) Urine Protein Trace H (Negative) Urine Glucose (UA) Negative (Negative) Urine Ketones Negative (Negative) Urine Blood Negative (Negative) Urine Nitrite Negative (Negative) Urine Bilirubin Negative (Negative) Urine Urobilinogen <2.0 (<2.0) mg/dL Ur Leukocyte Esterase Large H (Negative) Urine RBC 76 H (0-5) /hpf Urine WBC 17 H (0-5) /hpf Urine WBC Clumps Rare H (None) /hpf Ur Squamous Epith Cells <1 (0-4) /hpf Urine Bacteria Few H (None) /hpf Urine Mucus Occasional H (None) /hpf Disposition Clinical Impression: Pancreatitis, Shortness of breath Disposition: ADMITTED IP TO THIS [facility] Condition: Good Instructions (If sedation given, give patient instructions): Pancreatitis (ED) Additional Instructions: Patient will be admitted Is patient prescribed a controlled substance at d/c from ED?: No Referrals: Ghanshyam Romero DO [Primary Care Provider] - 1-2 days Time of Disposition: 19:05
[2019-03-28 16:17] LABS: Basophils # (A) 0.4 k/uL (0-0.2); Basophils % (A) 3 %; Eosinophils # (A) 0.1 k/uL (0-0.7); Eosinophils % (A) 1 %; HCT 40.9 % (34.0-46.0); HGB 13.4 gm/dL (11.4-16.0); Lymphocytes # (A) 0.4 k/uL (1.0-4.8); Lymphocytes % (A) 3 %; MCH 29.6 pg (25.0-35.0); MCHC 32.8 g/dL (31.0-37.0); MCV 90.3 fL (80.0-100.0); Monocytes # (A) 0.7 k/uL (0-1.0); Monocytes % (A) 5 %; Neutrophils # (A) 10.9 k/uL (1.3-7.7); Neutrophils % (A) 86 %; Platelet Count 364 k/uL (150-450); RBC 4.53 m/uL (3.80-5.40); WBC 12.7 k/uL (3.8-10.6)
[2019-03-28 16:26] LABS: ALT 48 U/L (9-52); AST 85 U/L (14-36); African American GFR (CKD) >90 (>60 ml/min/1.73 sqM); Albumin 3.4 g/dL (3.5-5.0); Alkaline Phosphatase 164 U/L (38-126); Anion Gap 9 mmol/L; Blood Urea Nitrogen 19 mg/dL (7-17); Calcium 9.2 mg/dL (8.4-10.2); Carbon Dioxide 27 mmol/L (22-30); Chloride 96 mmol/L (98-107); Glucose 151 mg/dL (74-99); Magnesium 2.4 mg/dL (1.6-2.3); Non-African American GFR(CKD) >90 (>60 ml/min/1.73 sqM); Potassium 5.1 mmol/L (3.5-5.1); Sodium 132 mmol/L (137-145); Total Bilirubin 0.4 mg/dL (0.2-1.3); Total Protein 7.6 g/dL (6.3-8.2)
[2019-03-28 16:29] LABS: Partial Thromboplastin Time 22.3 sec (22.0-30.0); Prothrombin Time 10.8 sec (9.0-12.0)
--- NOTE | 2019-03-28 16:37 | XR ---
EXAMINATION TYPE: XR chest 2V DATE OF EXAM: 03/28/2019 COMPARISON: 03/09/2019 HISTORY: Short of breath. History of lung cancer. TECHNIQUE: Frontal and lateral views of the chest are obtained. FINDINGS: There is extensive masslike density in the left upper lobe adjacent to the mediastinum. Th ere is blunting left costophrenic angle. Heart is shifted to the left side. Right lung is clear of co nsolidation. There is no heart failure. IMPRESSION: There is increasing left upper lobe consolidation and atelectasis compared to last exam there is consistent with progression of tumor. Left pleural effusion and left basilar atelectasis unc hanged.
[2019-03-28] MEDS ORDERED: SODIUM CHLORIDE 0.9% 1,000 ML IV STA (16:44)
[2019-03-28 16:45] LABS: Amylase 61 U/L (30-110)
[2019-03-28 17:05] LABS: Appearance,Urine Cloudy (Clear); Bacteria,Urine Few /hpf; Bilirubin,Urine Negative (Negative); Blood,Urine Negative (Negative); Color,Urine Yellow; Glucose,Urine (UA) Negative (Negative); Ketones,Urine Negative (Negative); Leukocyte Esterase,Urine Large (Negative); Mucus,Urine Occasional /hpf; Nitrite,Urine Negative (Negative); PH, Urine 6.5 (5.0-8.0); Protein,Urine Trace (Negative); RBC,Urine 76 /hpf (0-5); Specific Gravity,Urine 1.027 (1.001-1.035); Squamous Epithelial Cell,Urine <1 /hpf (0-4); Urobilinogen,Urine <2.0 mg/dL (<2.0)
[2019-03-28] MEDS ORDERED: ONDANSETRON 4 MG/2 ML VIAL IVP STA (17:21)
[2019-03-28] MEDS ORDERED: HYDROmorphone 0.5 MG/0.5 ML SYRINGE IVP STA (17:25)
[2019-03-28] MEDS: SODIUM CHLORIDE 0.9% 1,000 ML IV SCH (18:45)
[2019-03-28] MEDS ORDERED: NALOXONE 0.4 MG/ML 1 ML VIAL IV PRN (18:55)
[2019-03-28] MEDS ORDERED: LORazepam 2 MG/ML INJ IV PRN (18:55)
[2019-03-28] MEDS ORDERED: FAMOTIDINE 20 MG/2 ML VIAL IV STA (19:47)
[2019-03-28] MEDS ORDERED: diphenhydrAMINE 50 MG/ML 1 ML VIAL IVP STA (19:47)
[2019-03-28] MEDS ORDERED: methylPREDNISolone SOD SUCCI 125 MG/2 ML VIAL IV STA (19:48)
--- NOTE | 2019-03-28 20:33 | CT ---
EXAMINATION TYPE: CT chest angio for PE DATE OF EXAM: 03/28/2019 COMPARISON: 03/09/2019 HISTORY: SOB, elevated d-dimer, lung ca CT DLP: 446.1 mGycm Automated exposure control for dose reduction was used. CONTRAST: CT Chest for pulmonary embolism performed with with IV Contrast, patient injected with 100 mL of Isov ue 370. There are 3-D post processed images. FINDINGS: There is a 8 x 12 cm mass encasing the left pulmonary artery and the mediastinum consistent with a la rge tumor. There is narrowing of the left pulmonary artery. There is narrowing of the branches of the left pulmonary artery. I see no filling defect. Mass extends into the paratracheal region. Trachea i s deviated to the right side. The thoracic aorta is intact without evidence of aneurysm or dissection . I see no filling defects of the right pulmonary artery. There is pleural thickening and atelectasis left lung base. There are multiple variable-sized masses in the liver that is partly visualized consistent with metas tatic disease. IMPRESSION: No evidence of pulmonary embolism. Large tumor encasing the mediastinum and left pulmonary artery. He patic metastatic disease. No significant change compared to recent chest CT scan.
[2019-03-28 21:22] VITALS: BMI 29.2
[2019-03-29] MEDS: ALBUTEROL NEBULIZED 2.5 MG/3 ML INHALATION PRN ×2 (05:43→11:41)
[2019-03-29] MEDS: SODIUM CHLORIDE 0.9% 1,000 ML IV SCH ×2 (06:07→14:22)
--- NOTE | 2019-03-29 12:02 | P.CONS ---
History of Present Illness - Reason for Consult Consult date: 03/29/19 Metastatic large cell neuroendocrine lung cancer - History of Present Illness Ms. Tellez is a 68-year-old female patient of primary care Dr. Romero who has COPD, quitting smoking 20 years ago after smoking for about 25 years. She was initially seen in consult during her admission last month. She s noticed a change in her health about 8 months ago. These were vague, mild symptoms including shortness of breath, fatigue, occasional upset stomach. In the last 3 months symptoms became persistent and progressive including dysphagia and occasional choking on foods and fluids, her voice become hoarse and now is only a whisper, she has lost 70 pounds. RAJAN/shortness of breath and vomiting worsened over the last several days and brought her to the hospital for evaluation. She was being worked up out patient for her complaints. On 02/[address] of the neck and chest revealing a JOHANN lung mass extending into the mediastinum, supraclavicular, and mediastinal adenopathy. CT of the chest on admission shows a 9.6 x 13.5 cm mass in the left chest. This appeared to be extending upward into the left lower neck/supraclavicular area, with clinical compromise of the left recurrent laryngeal nerve. The patient underwent a CT-guided biopsy of the left lower neck mass. Due to compromise following she had to have a PEG tube placed. She was then discharged and followed up in the office. Her biopsy came back positive for large cell neuroendocrine cancer. Her PET scan showed uptake in the mass, with extension upward into the left neck/left supraclavicular area. There also appeared to be liver metastasis, left lingular lesion, as well as another lesion in the left cardiophrenic angle outside the lung. However rest of the abdomen and pelvis could not be imaged as the patient was having nausea and vomiting. Her MRI of the brain unfortunately showed multiple lesions. The patient was seen in the office and pathology and staging results discussed. During our office visit she was ambivalent as to whether she wanted cancer specific treatment. She does agree to have a consultation with radiation oncology for her brain metastasis. She did have initial consult with him, but did not follow-up as she was not feeling well due to abdominal discomfort and persistent nausea and vomiting. The patient has continued to have those symptoms, with progression. Oral intake has decreased and progressive weakness. She is also been feeling more short of breath. She therefore came into the emergency room and was admitted for further management. Her labs showed marked increase and lipase in the 1200 range. Review of Systems Constitutional: Reports fatigue, Reports poor appetite, Reports weakness, Reports weight loss Eyes: denies blurred vision, denies pain Ears: deny: decreased hearing, ear discharge, earache, tinnitus Ears, nose, mouth and throat: Reports dysphagia, Reports neck fullness/pressure, Reports neck lump, Reports voice changes Cardiovascular: Reports dyspnea on exertion Respiratory: Reports dyspnea Gastrointestinal: Reports abdominal pain, Reports nausea, Reports vomiting Genitourinary: Denies dysuria, Denies hematuria Musculoskeletal: Reports muscle weakness Integumentary: Denies pruritus, Denies rash Neurological: Reports balance difficulties, Reports gait dysfunction, Reports weakness Psychiatric: Reports difficulty concentrating Endocrine: Reports fatigue, Reports weight change Hematologic/Lymphatic: Reports as per HPI, Reports lymphadenopathy (Left lower neck mass) Past Medical History Past Medical History: Cancer, COPD Additional Past Medical History / Comment(s): emphysema; lung ,stomach ,and brain CA. History of Any Multi-Drug Resistant Organisms: None Reported Past Surgical History: Cholecystectomy Additional Past Surgical History / Comment(s): "i had jaw surgery", cataracts, feeding tube placement Past Anesthesia/Blood Transfusion Reactions: No Reported Reaction Past Psychological History: No Psychological Hx Reported Smoking Status: Former smoker Past Alcohol Use History: None Reported Past Drug Use History: None Reported - Past Family History Father History Unknown: Yes Family Medical History: Unable to Obtain Medications and Allergies Home Medications Medication Instructions Recorded Confirmed Type Albuterol Inhaler [Ventolin Hfa 2 puff INHALATION RT-QID 03/28/19 03/28/19 History Inhaler] Albuterol Nebulized [Ventolin 2.5 mg INHALATION RT-TID 03/28/19 03/28/19 History Nebulized] Dexamethasone [Hexadrol] See Taper PO DIRECTED 03/28/19 03/28/19 History Fluticasone Propion/Salmeterol 1 puff INHALATION RT-BID 03/28/19 03/28/19 History [Wixela 250-50 Inhub] Allergies Allergy/AdvReac Type Severity Reaction Status Date / Time Iodinated Contrast Media Allergy Dyspnea Verified 03/28/19 17:40 Penicillins Allergy Dyspnea Verified 03/28/19 17:40 egg AdvReac Nausea Verified 03/28/19 17:40 Physical Exam Vitals: Vital Signs Temp Pulse Pulse Resp BP BP BP 03/29/19 08:00 88 20 03/29/19 05:53 104 H 03/29/19 05:45 102 H 03/29/19 03:59 98.0 F 88 20 118/73 03/28/19 21:39 97.6 F 101 H 20 129/86 03/28/19 21:38 98.1 F 103 H 18 136/83 03/28/19 20:45 98.1 F 104 H 25 H 126/77 03/28/19 19:30 108 H 16 122/97 03/28/19 19:00 107 H 21 123/89 03/28/19 18:30 109 H 20 113/94 03/28/19 18:00 107 H 24 123/76 03/28/19 17:30 103 H 25 H 127/85 03/28/19 17:00 107 H 28 H 118/83 03/28/19 16:30 111 H 24 108/87 03/28/19 16:10 110 H 22 03/28/19 16:02 109 H 22 03/28/19 16:00 108 H 25 H 101/82 03/28/19 15:29 97.0 F L 106 H 25 H 101/82 Pulse Ox 03/29/19 08:00 03/29/19 05:53 03/29/19 05:45 03/29/19 03:59 93 L 03/28/19 21:39 97 03/28/19 21:38 97 03/28/19 20:45 98 03/28/19 19:30 96 03/28/19 19:00 95 03/28/19 18:30 96 03/28/19 18:00 96 03/28/19 17:30 98 03/28/19 17:00 97 03/28/19 16:30 96 03/28/19 16:10 03/28/19 16:02 03/28/19 16:00 03/28/19 15:29 98 Intake and Output 03/28/19 03/29/19 03/29/19 23:59 06:59 14:59 Intake Total Balance Intake: Intake, IV Titration Amount Sodium Chloride 0.9% 1, 000 ml @ 100 mls/hr IV . Q10H [facility] Rx#:[id number] Other: Voiding Method Diaper Incontinent # Voids # Bowel Movements 1 - Constitutional General appearance: mild distress - EENT Eyes: EOMI, PERRLA ENT: hearing grossly normal, normal oropharynx - Neck Neck: lymphadenopathy (2.5 cm ill-defined mass in the left medial supraclavicular area/left neck base) - Respiratory Respiratory: left: diminished - Cardiovascular Rhythm: regular Heart sounds: normal: S1, S2 - Gastrointestinal General gastrointestinal: normal bowel sounds, soft Localized gastrointestinal: tender: epigastric periumbilical - Integumentary Integumentary: normal - Neurologic Neurologic: CNII-XII intact - Musculoskeletal Musculoskeletal: generalized weakness, strength equal bilaterally - Psychiatric Psychiatric: A&O x's 3, appropriate affect Results CBC & Chem 7: 03/28/19 15:51 03/28/19 15:51 Labs: Abnormal Lab Results - Last 24 Hours (Table) 03/28/19 03/28/19 03/28/19 Range/Units 15:51 15:51 15:51 WBC 12.7 H (3.8-10.6) k/uL Neutrophils # 10.9 H (1.3-7.7) k/uL Lymphocytes # 0.4 L (1.0-4.8) k/uL Basophils # 0.4 H (0-0.2) k/uL D-Dimer (<0.60) mg/L FEU Sodium 132 L (137-145) mmol/L Chloride 96 L (98-107) mmol/L BUN 19 H (7-17) mg/dL Glucose 151 H (74-99) mg/dL Plasma Lactic Acid Gaurav (0.7-2.0) mmol/L Magnesium 2.4 H (1.6-2.3) mg/dL AST 85 H (14-36) U/L Alkaline Phosphatase 164 H (38-126) U/L Albumin 3.4 L (3.5-5.0) g/dL Lipase 1275 H (23-300) U/L Urine Appearance (Clear) Urine Protein (Negative) Ur Leukocyte Esterase (Negative) Urine RBC (0-5) /hpf Urine WBC (0-5) /hpf Urine WBC Clumps (None) /hpf Urine Bacteria (None) /hpf Urine Mucus (None) /hpf 11/02/19 11/02/19 11/02/19 Range/Units 15:51 16:00 16:45 WBC (3.8-10.6) k/uL Neutrophils # (1.3-7.7) k/uL Lymphocytes # (1.0-4.8) k/uL Basophils # (0-0.2) k/uL D-Dimer 6.89 H (<0.60) mg/L FEU Sodium (137-145) mmol/L Chloride (98-107) mmol/L BUN (7-17) mg/dL Glucose (74-99) mg/dL Plasma Lactic Acid Gaurav 3.4 H* (0.7-2.0) mmol/L Magnesium (1.6-2.3) mg/dL AST (14-36) U/L Alkaline Phosphatase (38-126) U/L Albumin (3.5-5.0) g/dL Lipase (23-300) U/L Urine Appearance Cloudy H (Clear) Urine Protein Trace H (Negative) Ur Leukocyte Esterase Large H (Negative) Urine RBC 76 H (0-5) /hpf Urine WBC 17 H (0-5) /hpf Urine WBC Clumps Rare H (None) /hpf Urine Bacteria Few H (None) /hpf Urine Mucus Occasional H (None) /hpf 03/28/19 03/29/19 Range/Units 20:28 00:13 WBC (3.8-10.6) k/uL Neutrophils # (1.3-7.7) k/uL Lymphocytes # (1.0-4.8) k/uL Basophils # (0-0.2) k/uL D-Dimer (<0.60) mg/L FEU Sodium (137-145) mmol/L Chloride (98-107) mmol/L BUN (7-17) mg/dL Glucose (74-99) mg/dL Plasma Lactic Acid Gaurav 2.5 H* 2.1 H* (0.7-2.0) mmol/L Magnesium (1.6-2.3) mg/dL AST (14-36) U/L Alkaline Phosphatase (38-126) U/L Albumin (3.5-5.0) g/dL Lipase (23-300) U/L Urine Appearance (Clear) Urine Protein (Negative) Ur Leukocyte Esterase (Negative) Urine RBC (0-5) /hpf Urine WBC (0-5) /hpf Urine WBC Clumps (None) /hpf Urine Bacteria (None) /hpf Urine Mucus (None) /hpf Microbiology - Last 24 Hours (Table) 03/28/19 16:45 Urine Culture - Preliminary Urine,Voided Chest x-ray: report reviewed Assessment and Plan (1) Large cell neuroendocrine carcinoma Narrative/Plan: The patient has very aggressive large cell neuroendocrine carcinoma arising from the left lung . Her chest x-ray in 10/12 did not show any evidence of mass. Currently the patient has large hilar masses with extension into the neck, as well as evidence of metastatic disease in the liver, and brain. Metastatic disease in other areas of the abdomen and pelvis cannot be ruled out, as the complete set of images on PET scan could not be completed The patient has been seen in the office and advised about her diagnosis and stage. It was reiterated to her today that she has stage IV disease which is not curable. Her prognosis is very guarded, due to the rapid progression of her malignancy. She has diffuse brain metastasis. Ideally she should receive for brain radiation first. However in the meantime it appears that her cancer is progressing, and causing symptoms elsewhere, with increasing shortness of breath and progressive opacity on on the left, and chest x-ray. She was again advised that the objective of treatment would be prolongation of life and palliation of symptoms. She had been quite ambivalent about receiving any chemotherapy, when seen in the office. She was willing to consider radiation , but it is not clear if she admitted a decision about that yet. At this time, if the patient starts brain radiation, she could have continued, rapid some dramatic progression outside the [employer]. If we treat the rest of the body first with chemotherapy, then she could have continued some dramatic progression in the [employer]. In either case her prognosis would be very poor. Doing both treatments together usually has significantly higher toxicity, especially in a patient with her compromised performance status. Therefore comfort care was again discussed with the patient. This had been discussed in the office. She stated that if treatment could extend her life significantly and has a feel better she would be willing to consider it. However she expressed understanding of the difficulties related to treatment, as well as increased risk of adverse events, as described above. We will therefore try to set up a meeting with her family and the patient's t teddyether tomorrow to discuss options. Current Visit: Yes Status: Acute Code(s): C7A.8 - OTHER MALIGNANT NEUROENDOCRINE TUMORS SNOMED Code(s): 736910170 (2) Pancreatitis Narrative/Plan: The patient had developed nausea and vomiting after her last discharge and the symptoms have progressively worsened. Her labs show evidence of pancreatitis. This could be due to metastatic disease. The patient has known liver metastasis, but the rest of the abdomen was not imaged on PET scan. - Continue supportive treatment with pain control, IV antiemetics and hydration Current Visit: Yes Status: Acute Code(s): K85.9 - ACUTE PANCREATITIS, UNSPECIFIED * DO NOT USE * SNOMED Code(s): 73236600 (3) Shortness of breath Narrative/Plan: This appears to have worsened since her last admission. x-ray shows progre ssive opacity in the left lung. This could be due to progression of the tumor, and/or postobstructive pneumonia. - The patient is already on by mouth steroids for her brain metastasis. Add antibiotic for possible postobstructive pneumonia. She is also on breathing treatments. Current Visit: Yes Status: Acute Code(s): R06.02 - SHORTNESS OF BREATH SNOMED Code(s): 302872759
[2019-03-29] MEDS ORDERED: IPRATROPIUM-ALBUTEROL 3 ML NEB INHALATION PRN (15:02)
[2019-03-29] MEDS ORDERED: ALPRAZolam 0.25 MG TAB PO PRN (15:04)
--- NOTE | 2019-03-29 15:31 | HP ---
HISTORY AND PHYSICAL I am covering for Dr. Romero. CHIEF COMPLAINTS: Shortness of breath HISTORY OF PRESENT ILLNESS: This 68-year-old woman with a past medical history of multiple medical problems including COPD, history of emphysema, history of possible lung cancer with METS, being followed by Dr. Romero in the outpatient setting, is complaining of increasing shortness of breath. The left neck mass biopsy showed poorly differentiated non-small cell lung cancer consistent metastatic large cell neuroendocrine carcinoma. The patient being closely monitored. Patient is currently complaining of increased shortness of breath. The patient also being seen by Dr. Zhao in the outpatient setting. The PET scan showed uptake in the mass and extension upwards. Consultation with Radiation/Oncology is also apparently in progress. Patient also had brain METS also. The patient also complained of generalized weakness and tiredness as well. Currently, after admission, the chest x- ray was done which I reviewed personally which showed significant lesions in the mediastinum and as well as left lung and CTA was also done which showed no evidence of pulmonary embolism, but a large tumor encasing the mediastinum and left pulmonary artery and hepatic metastatic disease was also noted. There is no history of fever, rigors, chills at this time. The patient also had evidence of mild pancreatitis with abdominal pain at the time of admission, amylase is normal, lipase is 1275. PAST MEDICAL HISTORY: History of recently diagnosed neuroendocrine carcinoma as before, COPD, multiple mets, cholecystectomy. MEDICATIONS: Prior to admission home medications are: 1. Hexadrol p.r.n. 2. Wixela 250/50 1 puff b.i.d. 3. Ventolin 2.5 t.i.d. 4. Ventolin p.r.n. ALLERGIES: IODINATED CONTRAST AND PENICILLIN. FAMILY HISTORY: Unable to obtain. SOCIAL HISTORY: Previous history of smoking. No history of current smoking or alcohol. REVIEW OF SYSTEMS: ENT diminished hearing. Diminished vision. CARDIOVASCULAR as mentioned earlier. RESPIRATORY: As mentioned earlier. GI no nausea or vomiting. no dysuria. NERVOUS SYSTEM: No numbness or weakness. ALLERGY/IMMUNOLOGY: No asthma or hayfever. MUSCULOSKELETAL as mentioned earlier. HEMATOLOGY/ONCOLOGY: As mentioned earlier. ENDOCRINE: No history of diabetes or hypothyroidism. CONSTITUTIONAL: As mentioned earlier. DERMATOLOGY: Negative. RHEUMATOLOGY negative. PSYCHIATRY as mentioned earlier. PHYSICAL EXAMINATION: Alert and oriented x3. Pulse is 111. Blood pressure 113/70, respiration 18, temperature 97.4, pulse ox 97% on 4 L. HEENT: Conjunctivae normal. Oral mucosa moist. Otherwise neck is no jugular venous distention. No carotid bruit. No lymph node enlargement. Breathing efforts increased. Cardiovascular system: S1, S2 muffled. No S3, no S4. RESPIRATORY: Breath sounds diminished in the bases. Bilateral scattered rhonchi and crackles. Wheezing. Breath sounds are markedly diminished on the left side. ABDOMEN: Soft, nontender. No mass palpable. LEGS: No edema. No swelling. NERVOUS SYSTEM: Higher functions as mentioned earlier. Moves all 4 limbs. No focal motor or sensory deficits. Lymphatics: No lymph nodes palpable in the neck, axillae or groin. SKIN: No ulcers. No rashes. No bleeding. JOINTS: No active deforming arthropathy. LABS: At this time shows lactic acid is 2.5 and 2.1. WBC 12.7, sodium is 132 and ALT is 164 and lipase is 1275. ASSESSMENT: 1. Shortness of breath possibly secondary to neuroendocrine tumor, poorly differentiated non-small cell carcinoma, possibly consistent with metastatic large cell neuroendocrine carcinoma with possible sepsis. 2. Possible postobstructive pneumonia or bronchitis. 3. Shortness of breath possibly chronic obstructive pulmonary disease acute exacerbation, multifactorial. 4. Hyponatremia. 5. Increased WBC. 6. Increased random blood sugar. 7. Elevated plasma lactic acid with possible sepsis. 8. Possible urinary tract infection present on admission. 9. History of chronic obstructive pulmonary disease. 10.History of cholecystectomy. 11.Remote history of nicotine dependence. RECOMMENDATIONS AND DISCUSSION: This 68-year-old woman who presented with multiple complex medical issues, we will monitor the patient closely, continue the current medications, management and symptomatic treatment. We will initiate IV steroids. I would also recommend bronchodilators. Hematology/Oncology evaluation. The patient is having discussions regarding the further course of action including chemotherapy or radiation therapy. Currently, I would also use empiric antibiotics. Overall prognosis extremely guarded because of multiple complex medical issues and presence of multiple METS as mentioned earlier. Further recommendations to follow. Dr. Romero is following tomorrow. MMODL / IJN: [id number] /
[2019-03-29] MEDS: LEVOFLOXACIN 500MG-D5W PMX 500 MG in DEXTROSE/WATER 1 100ML.BAG IVPB SCH (15:36)
[2019-03-29] MEDS: HYDROcodone/APAP 5-325MG 1 EACH TAB PO PRN (15:43)
[2019-03-29] MEDS: IPRATROPIUM-ALBUTEROL 3 ML NEB INHALATION SCH ×2 (16:12→20:06)
[2019-03-29] MEDS: methylPREDNISolone SOD SUCCI 125 MG/2 ML VIAL IV SCH ×2 (17:15→23:52)
[2019-03-29] MEDS: INSULIN ASPART (NovoLOG) 100 UNIT/ML VIAL SQ SCH ×2 (17:15→20:30)
[2019-03-29 17:18] LABS: Glucose,Whole Blood 97 mg/dL (75-99)
[2019-03-29 20:04] LABS: Glucose,Whole Blood 115 mg/dL (75-99)
[2019-03-29] MEDS: FORMOTEROL FUMARATE 20 MCG/2 ML NEBU INHALATION SCH (20:06)
[2019-03-29] MEDS: BUDESONIDE 1 MG/2 ML NEBU INHALATION SCH (20:06)
[2019-03-29] MEDS: HEPARIN SODIUM,PORCINE 5,000 UNIT/ML 1 ML VIAL SQ SCH (20:39)
[2019-03-30] MEDS: methylPREDNISolone SOD SUCCI 125 MG/2 ML VIAL IV SCH ×3 (05:35→18:17)
[2019-03-30 07:15] LABS: Glucose,Whole Blood 147 mg/dL (75-99)
[2019-03-30] MEDS: IPRATROPIUM-ALBUTEROL 3 ML NEB INHALATION SCH ×4 (07:55→21:23)
[2019-03-30] MEDS: FORMOTEROL FUMARATE 20 MCG/2 ML NEBU INHALATION SCH ×2 (07:56→21:23)
[2019-03-30] MEDS: BUDESONIDE 1 MG/2 ML NEBU INHALATION SCH ×2 (07:56→21:23)
[2019-03-30] MEDS: INSULIN ASPART (NovoLOG) 100 UNIT/ML VIAL SQ SCH ×4 (09:11→20:13)
[2019-03-30] MEDS: HEPARIN SODIUM,PORCINE 5,000 UNIT/ML 1 ML VIAL SQ SCH (09:12)
[2019-03-30] MEDS: PANTOPRAZOLE 40 MG TABLET PO SCH (09:12)
[2019-03-30 11:25] LABS: Glucose,Whole Blood 151 mg/dL (75-99)
--- NOTE | 2019-03-30 13:17 | US ---
EXAMINATION TYPE: US venous doppler duplex UE LT DATE OF EXAM: 03/30/2019 COMPARISON: None CLINICAL HISTORY: swelling and pain. Swelling and redness. Patient unable to lay flat due to being un able to breathe. SIDE PERFORMED: Left Left Arm: Appears POSITIVE for DVT in Subclavian, both Brachial veins and axilla vein. Appears POSIT WILBER for SVT in Basilic vein. Unable to visualize ulnar veins due to size. Unable to visualize lower and mid IJV portions due to patient unable to lay flat. Rouleaux flow seen in upper IJV. Large so ft tissue mass seen within the neck. IMPRESSION: 1. The exam positive for DVT involving the left subclavian and both brachial veins and axillary vein. Superficial venous thrombosis in the basilic vein also noted.
--- NOTE | 2019-03-30 13:57 | P.PN ---
Subjective Progress Note Date: 03/30/19 Family meeting between oncology , patient /family this a.m. pending. Significant edema of left arm. DVT prophylaxis in place with heparin subcu, which patient has been declining. Doppler performed reporting DVT of Left subclavian, both brachial and axillary veins, with superficial venous thrombosis in the basilic vein. Further review CT per radiologist's reporting, possible right-sided PE. Further oncology recommendations regarding anticoagulation pending. Afebrile, normal WBC, mild tachycardia.VSS. Maintaining O2 sats in the 90s on room air. Objective - Vital Signs Vital signs: Vital Signs Temp 97.8 F 03/30/19 11:57 Pulse 108 H 03/30/19 12:11 Resp 17 03/30/19 11:57 BP 105/66 03/30/19 11:57 Pulse Ox 94 L 03/30/19 11:57 Intake & Output 03/29/19 03/30/19 03/30/19 18:59 06:59 18:59 Intake Total 800 230 Balance 800 230 Intake: Intake, IV Titration 800 230 Amount Sodium Chloride 0.9% 1, 800 230 000 ml @ 100 mls/hr IV . Q10H [facility] Rx#:[id number] Other: Voiding Method Diaper Bedside Commode Bedside Commode Incontinent Diaper Diaper Incontinent Incontinent # Voids 1 1 # Bowel Movements 1 - Exam PHYSICAL EXAM: VITAL SIGNS: As above GENERAL: Sitting up in bed, no acute distress, respiratory efforts mildly increased. HEENT: Conjunctivae normal. eyes normal. Left medial supraclavicular lymphad enopathy NECK: No JVD. No thyroid enlargement. No LNs CARDIOVASCULAR: S1, S2 regular.. No murmur RESPIRATION: Breath sounds diminished in the bases, more so on the left side. Scattered rhonchi, crackles and expiratory wheezing. ABDOMEN: Soft, minimally distended, diffuse tenderness . PEG tube present .No guarding. no masses palpable. Bowel sounds heard. LEGS: No edema. no swelling. PSYCHIATRY: Alert and oriented X3, mood and affect normal. NERVOUS SYSTEM: Cranial N 2-12 grossly normal. Moves all 4 limbs. Diffuse weakness ,No focal deficits. Strength and sensation grossly intact.. Skin: no rash. Left arm edema. - Labs CBC & Chem 7: 03/28/19 15:51 11/02/19 15:51 Labs: Abnormal Lab Results - Last 24 Hours (Table) 03/29/19 03/30/19 03/30/19 Range/Units 20:02 07:14 11:24 POC Glucose (mg/dL) 115 H 147 H 151 H (75-99) mg/dL Microbiology - Last 24 Hours (Table) 03/28/19 16:45 Urine Culture - Preliminary Urine,Voided Gram Neg Bacilli Group D Enterococcus 03/28/19 15:51 Blood Culture - Preliminary Blood No Growth after 24 hours Assessment and Plan Assessment: -Acute hypoxic respiratory failure possible secondary to postobstructive pneumonia , possibly progression of neuroendocrine tumor, poorly differentiated non-small cell CA, progressive metastatic large cell neuroendocrine carcinoma, with brain, liver metastases;metastasis of abdomen and pelvis have not been ruled out. -Possible acute COPD exacerbation in a patient with history of COPD, emphysema. -DVT of Left subclavian, both brachial and axillary veins, with superficial venous thrombosis in the basilic vein -Possible right PE -Acute pancreatitis possibly secondary to metastasis -Hyponatremia -Leukocytosis, on steroids for brain metastasis -Possible acute UTI, present on admission -Vocal cord paralysis with hoarseness -Ongoing, long-term nicotine dependence -Hypoalbuminemia with weight loss, mild to moderate protein calorie malnutrition -Status post PEG tube placement prior admission Plan: Continue on current medication regime ,monitoring and symptomatic treatment. Maintain gentle IV fluid hydration, steroids, nebulized bronchodilators, empiric antibiotics,pain management . IV anti-emetics .oncology radiation consult in place regarding palliative radiation evaluation .surgery consult in place with recommendations pending .Family meeting scheduled with oncology this morning regarding patient's diagnosis of stage IV disease process, options including palliative/hospice/comfort care and plan. Prognosis guarded given multiple complex medical issues. The impression and plan of care has been dictated as directed. : I performed a history and examination of this patient, discussed the same with the dictator. I agree with the dictator's note ,documented as a scribe. Any additional findings or plans will be noted.
--- NOTE | 2019-03-30 14:11 | P.GSCN ---
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 This is a extremely large tumor with extension around the great vessels and into the neck. Recent PET scan suggests the presence of liver metastasis as well. Pancreas seen on recent CAT scan otherwise appears normal. When she arrived she was complaining of shortness of breath, fatigue, and abdominal pain. She had been receiving tube feeds through recently placed PEG tube. Patient has not decided on additional therapy for this malignancy. Denies fevers or chills. No vomiting. Amylase was normal however lipase was significantly elevated. Review of Systems The patient denies any acute changes in vision or hearing, no dysphagia or odynophagia, no dysuria or hematuria, no headache, no runny nose, no rectal bleeding or melena Past Medical History Past Medical History: Cancer, COPD Additional Past Medical History / Comment(s): emphysema; lung ,stomach ,and brain CA. History of Any Multi-Drug Resistant Organisms: None Reported Past Surgical History: Cholecystectomy Additional Past Surgical History / Comment(s): "i had jaw surgery", cataracts, feeding tube placement Past Anesthesia/Blood Transfusion Reactions: No Reported Reaction Past Psychological History: No Psychological Hx Reported Smoking Status: Former smoker Past Alcohol Use History: None Reported Past Drug Use History: None Reported - Past Family History Father History Unknown: Yes Family Medical History: Unable to Obtain Medications and Allergies Home Medications Medication Instructions Recorded Confirmed Type Albuterol Inhaler [Ventolin Hfa 2 puff INHALATION RT-QID 03/28/19 03/28/19 History Inhaler] Albuterol Nebulized [Ventolin 2.5 mg INHALATION RT-TID 03/28/19 03/28/19 History Nebulized] Dexamethasone [Hexadrol] See Taper PO DIRECTED 03/28/19 03/28/19 History Fluticasone Propion/Salmeterol 1 puff INHALATION RT-BID 03/28/19 03/28/19 History [Wixela 250-50 Inhub] Allergies Allergy/AdvReac Type Severity Reaction Status Date / Time Iodinated Contrast Media Allergy Dyspnea Verified 03/28/19 17:40 Penicillins Allergy Dyspnea Verified 03/28/19 17:40 egg AdvReac Nausea Verified 03/28/19 17:40 Surgical - Exam Vital Signs Temp Pulse Resp BP Pulse Ox 97.0 F L 106 H 25 H 101/82 98 03/28/19 15:29 03/28/19 15:29 03/28/19 15:29 03/28/19 15:29 03/28/19 15:29 Physical exam: General: Well-developed, somewhat malnourished HEENT: Normocephalic, sclerae nonicteric Abdomen: Nondistended, mild upper abdominal tenderness, no rebound or guarding Extremities: Left upper extremity swelling Neuro: Alert and oriented Results - Labs 03/28/19 15:51 03/28/19 15:51 Abnormal Lab Results - Last 24 Hours (Table) 03/29/19 03/30/19 03/30/19 Range/Units 20:02 07:14 11:24 POC Glucose (mg/dL) 115 H 147 H 151 H (75-99) mg/dL Microbiology - Last 24 Hours (Table) 03/28/19 16:45 Urine Culture - Preliminary Urine,Voided Gram Neg Bacilli Group D Enterococcus 03/28/19 15:51 Blood Culture - Preliminary Blood No Growth after 24 hours Assessment and Plan (1) Pancreatitis Narrative/Plan: Patient with elevated lipase on exam with complaints of ongoing abdominal discomfort. Symptoms may be related to pancreatitis however lipase can be somewhat nonspecific. Begin clear liquids at this time. Repeat labs tomorrow. Patient's prognosis unfortunately appears quite poor. Await further plans from an oncology standpoint. Current Visit: Yes Status: Acute Code(s): K85.9 - ACUTE PANCREATITIS, UNSPECIFIED * DO NOT USE * SNOMED Code(s): 62542957
[2019-03-30 15:21] LABS: INR 1.1 (<1.2); Partial Thromboplastin Time 22.3 sec (22.0-30.0); Prothrombin Time 11.4 sec (9.0-12.0)
[2019-03-30] MEDS: HEPARIN SOD,PORK IN 0.45% NACL 25,000 UNIT in 0.45% NACL 1 250ML.BAG IV SCH (15:49)
[2019-03-30] MEDS: HYDROcodone/APAP 5-325MG 1 EACH TAB PO PRN (16:06)
[2019-03-30 17:18] LABS: Glucose,Whole Blood 150 mg/dL (75-99)
[2019-03-30] MEDS: LEVOFLOXACIN 500MG-D5W PMX 500 MG in DEXTROSE/WATER 1 100ML.BAG IVPB SCH (18:17)
[2019-03-30 20:06] LABS: Glucose,Whole Blood 164 mg/dL (75-99)
--- NOTE | 2019-03-30 22:01 | P.PN ---
Subjective Progress Note Date: 03/30/19 The patient continues to have significant weakness and shortness of breath. Abdominal pain is somewhat improved and she does feel hungry and wants to advance her diet. Nausea and vomiting have significantly lessened. No obvious bleeding. She denies any changes in mental status, any focal weakness or seizure type activity. Left upper extremity swelling has been noted Objective - Vital Signs Vital signs: Vital Signs Temp 97.8 F 03/30/19 11:57 Pulse 106 H 03/30/19 21:35 Resp 18 03/30/19 21:24 BP 105/66 03/30/19 11:57 Pulse Ox 94 L 03/30/19 17:22 Intake & Output 03/30/19 03/30/19 03/31/19 06:59 18:59 06:59 Intake Total 230 Balance 230 Intake: Intake, IV Titration 230 Amount Sodium Chloride 0.9% 1, 230 000 ml @ 100 mls/hr IV . Q10H [facility] Rx#:[id number] Other: Voiding Method Bedside Commode Bedside Commode Diaper Diaper Incontinent Incontinent # Voids 1 4 # Bowel Movements 1 - Constitutional General appearance: Present: mild distress - EENT Eyes: Present: EOMI, PERRLA ENT: Present: hearing grossly normal, normal oropharynx - Respiratory Respiratory: left: diminished - Cardiovascular Rhythm: regular Heart sounds: normal: S1, S2 - Gastrointestinal Gastrointestinal Comment(s): PEG tube in situ General gastrointestinal: Present: normal bowel sounds, soft - Integumentary Integumentary: Present: normal - Neurologic Neurologic: Present: CNII-XII intact - Musculoskeletal Musculoskeletal: Present: generalized weakness, strength equal bilaterally - Psychiatric Psychiatric: Present: A&O x's 3, appropriate affect - Labs CBC & Chem 7: 03/28/19 15:51 03/28/19 15:51 Labs: Abnormal Lab Results - Last 24 Hours (Table) 03/30/19 03/30/19 03/30/19 Range/Units 07:14 11:24 17:17 POC Glucose (mg/dL) 147 H 151 H 150 H (75-99) mg/dL 03/30/19 Range/Units 20:05 POC Glucose (mg/dL) 164 H (75-99) mg/dL Microbiology - Last 24 Hours (Table) 03/28/19 15:51 Blood Culture - Preliminary Blood No Growth after 48 hours 03/28/19 16:45 Urine Culture - Preliminary Urine,Voided Gram Neg Bacilli Group D Enterococcus Assessment and Plan (1) Large cell neuroendocrine carcinoma Narrative/Plan: I had a prolonged family meeting with multiple members of the family at the patient's bedside where her situation was discussed in detail. Her complicated medical situation from the oncologic standpoint was elaborated, as described in the initial consult from yesterday. They were advised that there has been further compromise of the patient's performance status especially related to increased shortness of breath. This could indicate progression of the tumor in the chest, and/or postobstructive pneumonia. In the meantime she has not been able to start treatment for multiple brain metastasis because of GI symptoms related to her possible pancreatitis. They were advised that treatment of the brain metastasis first, which is the usual protocol, could compromise treatment of extracranial disease, if this was progressing rapidly, and vice versa. In addition, prognosis of patients with extensive brain metastasis post whole brain radiation is generally quite guarded in the baseline performance status is poor. Again advised that her consider is not curable, and the objective of treatment is no mention of life and palliation of symptoms. Given her current situation, those objectives seem to be getting progressively harder to realistically achieve. The best case scenario could be that postobstructive pneumonia is a major component of her respiratory issues, and that it responds to current ongoing aggressive treatment with aerosols, antibiotics, and steroids. In that situation the patient can start whole brain radiation, and then return to systemic therapy. However if she does not show improvement with current treatment, that her prognosis would be very guarded with very limited treatment options. Then multiple questions which were answered to the best of my ability. They expressed understanding of this difficult situation. At this time it is agreed that we would aggressively treat for possible postobstructive pneumonia and make further decisions based on how she does. - Radiation oncology will be placed on consult to follow along, and start radiation to the whole brain if the patient's situation improves suitably. Case was discussed with them. They will also evaluate for possible palliative radiation to the left upper lung tumor. Current Visit: Yes Status: Acute Code(s): C7A.8 - OTHER MALIGNANT NEUROENDOCRINE TUMORS SNOMED Code(s): 236508425 (2) Pancreatitis Narrative/Plan: Etiology of that is unclear. However malignancy related phenomenon, either a direct metastasis or local obstruction are suspected. Her nausea and vomiting are improved today and she does report some increase in appetite. Surgery will be consulted to manage the same,, and also assess for any problems related to the PEG tube Current Visit: Yes Status: Acute Code(s): K85.9 - ACUTE PANCREATITIS, UNSPECIFIED * DO NOT USE * SNOMED Code(s): 16563581 (3) Shortness of breath Narrative/Plan: as above Current Visit: Yes Status: Acute Code(s): R06.02 - SHORTNESS OF BREATH SNOMED Code(s): 937474682 Plan: given the patient's poor performance status as well as extensive underlying m etastatic malignancy with potentially limited management options, it was strongly recommended that the patient consider DNR/no intubation. They were advised that if she would deteriorate to that point despite ongoing aggressive medical care, the chances of any benefit from those treatments would be very sl im, while risk of adverse events and distress would be significant. After detailed discussion with the patient and family were agreeable to the same. Orders were given to change her CODE STATUS Time with Patient: Greater than 30
[2019-03-30] MEDS: HEPARIN SODIUM,PORCINE 5,000 UNIT/ML 1 ML VIAL IV PRN (23:49)
[2019-03-31] MEDS: methylPREDNISolone SOD SUCCI 125 MG/2 ML VIAL IV SCH ×5 (00:19→23:48)
[2019-03-31] MEDS: HYDROcodone/APAP 5-325MG 1 EACH TAB PO PRN (04:01)
[2019-03-31 07:33] LABS: Glucose,Whole Blood 149 mg/dL (75-99)
--- NOTE | 2019-03-31 07:43 | P.PN ---
Subjective Progress Note Date: 03/30/19 Principal diagnosis: metastatic lung cancer Since following up in our clinic last week, the patient reports she has had a very difficult week. She was unable to get out of bed for several days. She notes that she has had persistent headache, nausea and epigastric pain. She st ill is reporting that when she does ambulate that she feels dizzy and has vision changes making her feel less steady. Objective - Vital Signs Vital signs: Vital Signs Temp 97.6 F 03/31/19 04:36 Pulse 111 H 03/31/19 04:36 Resp 16 03/31/19 04:36 BP 107/70 03/31/19 04:36 Pulse Ox 93 L 03/31/19 04:36 Intake & Output 03/30/19 03/31/19 03/31/19 18:59 06:59 18:59 Intake Total 574.024 Balance 574.024 Intake: Intake, IV Titration 74.024 Amount Heparin Sod,Pork in 0.45% 74.024 NaCl 25,000 unit In 0.45 % NaCl 1 250ml.bag @ 12 UNITS/KG/HR 9.253 mls/hr IV .Q24H [facility] Rx#: [id number] Oral 500 Other: Voiding Method Bedside Commode Bedside Commode Diaper Diaper Incontinent Incontinent # Voids 4 # Bowel Movements 1 - Constitutional General appearance: Present: mild distress - EENT Eyes: Present: EOMI ENT: Present: hearing grossly normal - Neck Neck: Present: lymphadenopathy - Respiratory Respiratory: bilateral: diminished - Cardiovascular Rhythm: regular - Gastrointestinal General gastrointestinal: Present: tenderness (mild TTP epigastric region). Absent: distended - Integumentary Integumentary: Absent: calor, cellulitis - Neurologic Neurologic: Present: CNII-XII intact - Musculoskeletal Musculoskeletal: Present: generalized weakness - Psychiatric Psychiatric: Present: A&O x's 3, appropriate affect - Labs CBC & Chem 7: 03/28/19 15:51 03/28/19 15:51 Labs: Abnormal Lab Results - Last 24 Hours (Table) 03/30/19 03/30/19 03/30/19 Range/Units 11:24 17:17 20:05 POC Glucose (mg/dL) 151 H 150 H 164 H (75-99) mg/dL 03/31/19 Range/Units 07:31 POC Glucose (mg/dL) 149 H (75-99) mg/dL Microbiology - Last 24 Hours (Table) 03/28/19 16:45 Urine Culture - Final Urine,Voided Enterobacter hormaechei Enterococcus faecium Klebsiella pneumoniae 03/28/19 15:51 Blood Culture - Preliminary Blood No Growth after 48 hours - Imaging and Cardiology CT scan - chest: report reviewed, image reviewed Assessment and Plan Plan: The patient is a 68 year old female with a history of 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 She initially had interest in pursuing palliative brain radiotherapy, but this past week she was unable to get out of bed to attend treatments. 1. Metastatic NSCLC - large cell: Patient has continued to have significant decline in performance status. Despite initiation of decadron she has continued to have headaches and dizziness. She was brought to the hospital by her family on Saturday. She is clearly progressing systemically as well as within the [employer] TIER OFF. I had a long discussion with the patient and her family (granddaughter) who was present. The patient does not wish to pursue active therapy. I explained the risks, benefits and possible side effects of a course of whole-brain radiotherapy, and she was not interested in this. She understands she has disease that is incurable, and she is also not interested in chemotherapy. After a discussion, the patient is agreeable to hospice/comfort care. The family would like to meet with hospice the morning of 03/31. Time with Patient: Less than 30
[2019-03-31] MEDS: IPRATROPIUM-ALBUTEROL 3 ML NEB INHALATION SCH ×4 (07:55→20:11)
[2019-03-31] MEDS: BUDESONIDE 1 MG/2 ML NEBU INHALATION SCH ×2 (07:55→20:11)
[2019-03-31] MEDS: FORMOTEROL FUMARATE 20 MCG/2 ML NEBU INHALATION SCH ×2 (07:55→20:11)
[2019-03-31 08:09] LABS: Basophils # (A) 0.1 k/uL (0-0.2); Basophils % (A) 1 %; Eosinophils % (A) 0 %; HCT 37.6 % (34.0-46.0); HGB 11.9 gm/dL (11.4-16.0); Hypochromasia Slight; Lymphocytes # (A) 0.7 k/uL (1.0-4.8); Lymphocytes % (A) 6 %; MCH 29.5 pg (25.0-35.0); MCHC 31.7 g/dL (31.0-37.0); Mean Platelet Volume 6.3; Monocytes # (A) 0.7 k/uL (0-1.0); Monocytes % (A) 6 %; Neutrophils # (A) 10.3 k/uL (1.3-7.7); Neutrophils % (A) 87 %; Platelet Count 373 k/uL (150-450); RBC 4.05 m/uL (3.80-5.40); RDW 13.9 % (11.5-15.5); WBC 11.9 k/uL (3.8-10.6)
[2019-03-31] MEDS: PANTOPRAZOLE 40 MG TABLET PO SCH (08:10)
[2019-03-31] MEDS: INSULIN ASPART (NovoLOG) 100 UNIT/ML VIAL SQ SCH ×4 (08:14→21:25)
[2019-03-31 08:25] LABS: ALT 36 U/L (9-52); AST 94 U/L (14-36); African American GFR (CKD) >90 (>60 ml/min/1.73 sqM); Albumin 2.9 g/dL (3.5-5.0); Alkaline Phosphatase 125 U/L (38-126); Anion Gap 8 mmol/L; Blood Urea Nitrogen 18 mg/dL (7-17); Calcium 8.8 mg/dL (8.4-10.2); Carbon Dioxide 24 mmol/L (22-30); Chloride 104 mmol/L (98-107); Glucose 162 mg/dL (74-99); Non-African American GFR(CKD) >90 (>60 ml/min/1.73 sqM); Potassium 4.6 mmol/L (3.5-5.1); Sodium 136 mmol/L (137-145); Total Bilirubin 0.4 mg/dL (0.2-1.3); Total Protein 6.6 g/dL (6.3-8.2)
[2019-03-31] MEDS: HEPARIN SODIUM,PORCINE 5,000 UNIT/ML 1 ML VIAL IV PRN ×2 (08:41→16:57)
[2019-03-31] MEDS: HYDROmorphone 0.5 MG/0.5 ML SYRINGE IVP PRN (08:48)
[2019-03-31] MEDS: ONDANSETRON 4 MG/2 ML VIAL IVP PRN (10:40)
[2019-03-31 11:38] LABS: Glucose,Whole Blood 167 mg/dL (75-99)
--- NOTE | 2019-03-31 11:42 | P.PN ---
<Neema Vides - Last Filed: 03/31/19 11:35> Subjective Progress Note Date: 03/31/19 CHIEF COMPLAINT: Abdominal pain HISTORY OF PRESENT ILLNESS: Patient examined this morning at the bedside. She reports not feeling well this morning. She states she spoke with her family yesterday and has decided to go hospice today. PHYSICAL EXAM: VITAL SIGNS: Reviewed. GENERAL: Well-developed in no acute distress. HEENT: No sclera icterus. Extraocular movements grossly intact. Moist buccal mucosa. Head is atraumatic, normocephalic. ABDOMEN: Soft. Nondistended. Nontender. PEG tube intact. NEUROLOGIC: Alert and oriented. Cranial nerves II through XII grossly intact. ASSESSMENT: 1. Metastatic neuroendocrine tumor primarily affecting the left apex of her lung 2. Pancreatitis PLAN: Patient reports she has made the decision to sign into hospice. She is reasonable given her diagnosis. We will sign off. Please re-consult if needed. Nurse practitioner note has been reviewed by physician. Signing provider agrees with the documented findings, assessment, and plan of care. Objective - Vital Signs Vital signs: Vital Signs Temp 97.6 F 03/31/19 04:36 Pulse 99 03/31/19 08:16 Resp 16 03/31/19 04:36 BP 107/70 03/31/19 04:36 Pulse Ox 93 L 03/31/19 04:36 Intake & Output 03/30/19 03/31/19 03/31/19 18:59 06:59 18:59 Intake Total 574.024 102.946 Balance 574.024 102.946 Weight 77.111 kg Intake: Intake, IV Titration 74.024 102.946 Amount Heparin Sod,Pork in 0.45% 74.024 102.946 NaCl 25,000 unit In 0.45 % NaCl 1 250ml.bag @ 12 UNITS/KG/HR 9.253 mls/hr IV .Q24H [facility] Rx#: [id number] Oral 500 Other: Voiding Method Bedside Commode Bedside Commode Bedside Commode Diaper Diaper Diaper Incontinent Incontinent Incontinent # Voids 4 # Bowel Movements 1 - Labs CBC & Chem 7: 03/31/19 07:28 03/31/19 07:28 Labs: Abnormal Lab Results - Last 24 Hours (Table) 03/30/19 03/30/19 03/31/19 Range/Units 17:17 20:05 07:28 WBC (3.8-10.6) k/uL Neutrophils # (1.3-7.7) k/uL Lymphocytes # (1.0-4.8) k/uL APTT (22.0-30.0) sec Sodium 136 L (137-145) mmol/L BUN 18 H (7-17) mg/dL Glucose 162 H (74-99) mg/dL POC Glucose (mg/dL) 150 H 164 H (75-99) mg/dL AST 94 H (14-36) U/L Albumin 2.9 L (3.5-5.0) g/dL Lipase 388 H (23-300) U/L 03/31/19 03/31/19 03/31/19 Range/Units 07:28 07:28 07:31 WBC 11.9 H (3.8-10.6) k/uL Neutrophils # 10.3 H (1.3-7.7) k/uL Lymphocytes # 0.7 L (1.0-4.8) k/uL APTT 38.5 H (22.0-30.0) sec Sodium (137-145) mmol/L BUN (7-17) mg/dL Glucose (74-99) mg/dL POC Glucose (mg/dL) 149 H (75-99) mg/dL AST (14-36) U/L Albumin (3.5-5.0) g/dL Lipase (23-300) U/L Microbiology - Last 24 Hours (Table) 03/28/19 16:45 Urine Culture - Final Urine,Voided Enterobacter hormaechei Enterococcus faecium Klebsiella pneumoniae 03/28/19 15:51 Blood Culture - Preliminary Blood No Growth after 48 hours <Sid Jackson - Last Filed: 03/31/19 13:11> Subjective As above. Patient has decided on hospice measures. Continue utilize PEG tube as needed. We'll sign off. Objective - Vital Signs Vital signs: Vital Signs Temp 98 F 03/31/19 12:16 Pulse 119 H 03/31/19 12:16 Resp 19 03/31/19 12:16 BP 94/62 03/31/19 12:16 Pulse Ox 94 L 03/31/19 12:16 Intake & Output 11/09/1203/31/19 03/31/19 18:59 06:59 18:59 Intake Total 574.024 102.946 Balance 574.024 102.946 Weight 77.111 kg Intake: Intake, IV Titration 74.024 102.946 Amount Heparin Sod,Pork in 0.45% 74.024 102.946 NaCl 25,000 unit In 0.45 % NaCl 1 250ml.bag @ 12 UNITS/KG/HR 9.253 mls/hr IV .Q24H [facility] Rx#: [id number] Oral 500 Other: Voiding Method Bedside Commode Bedside Commode Bedside Commode Diaper Diaper Diaper Incontinent Incontinent Incontinent # Voids 4 # Bowel Movements 1 - Labs CBC & Chem 7: 03/31/19 07:28 03/31/19 07:28 Labs: Abnormal Lab Results - Last 24 Hours (Table) 03/30/19 03/30/19 03/31/19 Range/Units 17:17 20:05 07:28 WBC (3.8-10.6) k/uL Neutrophils # (1.3-7.7) k/uL Lymphocytes # (1.0-4.8) k/uL APTT (22.0-30.0) sec Sodium 136 L (137-145) mmol/L BUN 18 H (7-17) mg/dL Glucose 162 H (74-99) mg/dL POC Glucose (mg/dL) 150 H 164 H (75-99) mg/dL AST 94 H (14-36) U/L Albumin 2.9 L (3.5-5.0) g/dL Lipase 388 H (23-300) U/L 03/31/19 03/31/19 03/31/19 Range/Units 07:28 07:28 07:31 WBC 11.9 H (3.8-10.6) k/uL Neutrophils # 10.3 H (1.3-7.7) k/uL Lymphocytes # 0.7 L (1.0-4.8) k/uL APTT 38.5 H (22.0-30.0) sec Sodium (137-145) mmol/L BUN (7-17) mg/dL Glucose (74-99) mg/dL POC Glucose (mg/dL) 149 H (75-99) mg/dL AST (14-36) U/L Albumin (3.5-5.0) g/dL Lipase (23-300) U/L 03/31/19 Range/Units 11:26 WBC (3.8-10.6) k/uL Neutrophils # (1.3-7.7) k/uL Lymphocytes # (1.0-4.8) k/uL APTT (22.0-30.0) sec Sodium (137-145) mmol/L BUN (7-17) mg/dL Glucose (74-99) mg/dL POC Glucose (mg/dL) 167 H (75-99) mg/dL AST (14-36) U/L Albumin (3.5-5.0) g/dL Lipase (23-300) U/L Microbiology - Last 24 Hours (Table) 03/28/19 16:45 Urine Culture - Final Urine,Voided Enterobacter hormaechei Enterococcus faecium Klebsiella pneumoniae 03/28/19 15:51 Blood Culture - Preliminary Blood No Growth after 48 hours Assessment and Plan (1) Pancreatitis Current Visit: Yes Status: Acute Code(s): K85.9 - ACUTE PANCREATITIS, UNSP ECIFIED * DO NOT USE * SNOMED Code(s): 32473690
[2019-03-31] MEDS ORDERED: ACETAMINOPHEN IV (For NPO) 1,000 MG in EMPTY BAG 1 BAG IVPB ONE (12:30)
[2019-03-31] MEDS: HEPARIN SOD,PORK IN 0.45% NACL 25,000 UNIT in 0.45% NACL 1 250ML.BAG IV SCH (14:18)
[2019-03-31] MEDS: LEVOFLOXACIN 500MG-D5W PMX 500 MG in DEXTROSE/WATER 1 100ML.BAG IVPB SCH (15:49)
--- NOTE | 2019-03-31 16:36 | P.PN ---
Subjective Progress Note Date: 03/31/19 Family meeting between oncology , patient /family this a.m. pending. Significant edema of left arm. DVT prophylaxis in place with heparin subcu, which patient has been declining. Doppler performed reporting DVT of Left subclavian, both brachial and axillary veins, with superficial venous thrombosis in the basilic vein. Further review CT per radiologist's reporting, possible right-sided PE. Further oncology recommendations regarding anticoagulation pending. Afebrile, normal WBC, mild tachycardia.VSS. Maintaining O2 sats in the 90s on room air. 03/31/2019 maintained on Decadron .continues to have headaches, in addition to dizziness, nausea, increased weakness with difficulty ambulating and getting out of bed. Reports lightheadedness, dizziness with standing. Met with oncology radiologist. Patient and family have decided to go with hospice. Informational hospice meeting scheduled for this morning when family arrives. Objective - Vital Signs Vital signs: Vital Signs Temp 98 F 03/31/19 12:16 Pulse 119 H 03/31/19 12:16 Resp 19 03/31/19 12:16 BP 94/62 03/31/19 12:16 Pulse Ox 94 L 03/31/19 12:16 Intake & Output 03/30/19 03/31/19 03/31/19 18:59 06:59 18:59 Intake Total 574.024 175.976 Balance 574.024 175.976 Weight 77.111 kg Intake: Intake, IV Titration 74.024 175.976 Amount Heparin Sod,Pork in 0.45% 74.024 175.976 NaCl 25,000 unit In 0.45 % NaCl 1 250ml.bag @ 12 UNITS/KG/HR 9.253 mls/hr IV .Q24H [facility] Rx#: [id number] Oral 500 Other: Voiding Method Bedside Commode Bedside Commode Bedside Commode Diaper Diaper Diaper Incontinent Incontinent Incontinent # Voids 4 # Bowel Movements 1 - Exam PHYSICAL EXAM: VITAL SIGNS: As above GENERAL: Sitting up in bed, no acute distress, respiratory efforts increased. Whispering. HEENT: Conjunctivae normal. eyes normal. Left medial supraclavicular lymphadenopathy NECK: No JVD. No thyroid enlargement. No LNs CARDIOVASCULAR: S1, S2 regular. No murmur RESPIRATION: Breath sounds diminished in the bases, more so on the left side. Scattered rhonchi, crackles and expiratory wheezing. ABDOMEN: Soft, minimally distended, diffuse tenderness .No guarding. no masses palpable. Bowel sounds heard. LEGS: No edema. no swelling. PSYCHIATRY: Alert and oriented X3, mood and affect normal. NERVOUS SYSTEM: Cranial N 2-12 grossly normal. Moves all 4 limbs. Diffuse weakness ,No focal deficits. Skin: no rash. - Labs CBC & Chem 7: 03/31/19 07:28 03/31/19 07:28 Labs: Abnormal Lab Results - Last 24 Hours (Table) 03/30/19 03/30/19 03/31/19 Range/Units 17:17 20:05 07:28 WBC (3.8-10.6) k/uL Neutrophils # (1.3-7.7) k/uL Lymphocytes # (1.0-4.8) k/uL APTT (22.0-30.0) sec Sodium 136 L (137-145) mmol/L BUN 18 H (7-17) mg/dL Glucose 162 H (74-99) mg/dL POC Glucose (mg/dL) 150 H 164 H (75-99) mg/dL AST 94 H (14-36) U/L Albumin 2.9 L (3.5-5.0) g/dL Lipase 388 H (23-300) U/L 03/31/19 03/31/19 03/31/19 Range/Units 07:28 07:28 07:31 WBC 11.9 H (3.8-10.6) k/uL Neutrophils # 10.3 H (1.3-7.7) k/uL Lymphocytes # 0.7 L (1.0-4.8) k/uL APTT 38.5 H (22.0-30.0) sec Sodium (137-145) mmol/L BUN (7-17) mg/dL Glucose (74-99) mg/dL POC Glucose (mg/dL) 149 H (75-99) mg/dL AST (14-36) U/L Albumin (3.5-5.0) g/dL Lipase (23-300) U/L 03/31/19 03/31/19 Range/Units 11:26 15:26 WBC (3.8-10.6) k/uL Neutrophils # (1.3-7.7) k/uL Lymphocytes # (1.0-4.8) k/uL APTT 46.1 H (22.0-30.0) sec Sodium (137-145) mmol/L BUN (7-17) mg/dL Glucose (74-99) mg/dL POC Glucose (mg/dL) 167 H (75-99) mg/dL AST (14-36) U/L Albumin (3.5-5.0) g/dL Lipase (23-300) U/L Microbiology - Last 24 Hours (Table) 03/28/19 16:45 Urine Culture - Final Urine,Voided Enterobacter hormaechei Enterococcus faecium Klebsiella pneumoniae 03/28/19 15:51 Blood Culture - Preliminary Blood No Growth after 48 hours Assessment and Plan Assessment: -Acute hypoxic respiratory failure possible secondary to postobstructive pneumonia , possibly progression of neuroendocrine tumor, poorly differentiated non-small cell CA, progressive metastatic large cell neuroendocrine carcinoma, with brain, liver metastases;metastasis of abdomen and pelvis have not been ruled out. -Possible acute COPD exacerbation in a patient with history of COPD, emphysema. -DVT of Left subclavian, both brachial and axillary veins, with superficial venous thrombosis in the basilic vein -Possible right PE -Acute pancreatitis possibly secondary to metastasis -Hyponatremia -Leukocytosis, on steroids for brain metastasis -Possible acute UTI, present on admission -Vocal cord paralysis with hoarseness -Ongoing, long-term nicotine dependence -Hypoalbuminemia with weight loss, mild to moderate protein calorie malnutrition -Status post PEG tube placement prior admission Plan: Continue on current medication regime ,monitoring and symptomatic treatment. Family enroute/family meeting with hospice this morning. Maintain supportive care. Continue gentle IV fluid hydration, steroids, nebulized bronchodilators, empiric antibiotics,pain management, anti-emetics . Prognosis guarded given multiple complex medical issues. Further recommendations to follow. The impression and plan of care has been dictated as directed. : I performed a history and examination of this patient, discussed the same with the dictator. I agree with the dictator's note ,documented as a scribe. Any additional findings or plans will be noted.
[2019-03-31 17:10] LABS: Glucose,Whole Blood 167 mg/dL (75-99)
[2019-03-31 20:42] LABS: Glucose,Whole Blood 151 mg/dL (75-99)
[2019-04-01] MEDS: methylPREDNISolone SOD SUCCI 125 MG/2 ML VIAL IV SCH ×3 (06:14→17:33)
[2019-04-01] MEDS: HEPARIN SOD,PORK IN 0.45% NACL 25,000 UNIT in 0.45% NACL 1 250ML.BAG IV SCH (06:27)
[2019-04-01 07:14] LABS: Glucose,Whole Blood 161 mg/dL (75-99)
[2019-04-01] MEDS: FORMOTEROL FUMARATE 20 MCG/2 ML NEBU INHALATION SCH ×2 (07:24→20:38)
[2019-04-01] MEDS: BUDESONIDE 1 MG/2 ML NEBU INHALATION SCH ×2 (07:24→20:01)
[2019-04-01] MEDS: IPRATROPIUM-ALBUTEROL 3 ML NEB INHALATION SCH ×4 (07:24→20:01)
[2019-04-01] MEDS: INSULIN ASPART (NovoLOG) 100 UNIT/ML VIAL SQ SCH ×4 (07:46→20:21)
[2019-04-01] MEDS: PANTOPRAZOLE 40 MG TABLET PO SCH (07:47)
[2019-04-01] MEDS: HYDROmorphone 0.5 MG/0.5 ML SYRINGE IVP PRN (07:55)
[2019-04-01 08:21] LABS: Basophils # (A) 0.3 k/uL (0-0.2); Basophils % (A) 2 %; Eosinophils # (A) 0.1 k/uL (0-0.7); Eosinophils % (A) 1 %; HCT 36.8 % (34.0-46.0); HGB 11.7 gm/dL (11.4-16.0); Lymphocytes # (A) 0.6 k/uL (1.0-4.8); Lymphocytes % (A) 4 %; MCH 29.2 pg (25.0-35.0); MCHC 31.8 g/dL (31.0-37.0); MCV 91.7 fL (80.0-100.0); Mean Platelet Volume 6.9; Monocytes # (A) 0.7 k/uL (0-1.0); Monocytes % (A) 5 %; Neutrophils # (A) 12.2 k/uL (1.3-7.7); Neutrophils % (A) 87 %; Platelet Count 332 k/uL (150-450); RBC 4.01 m/uL (3.80-5.40); RDW 14.3 % (11.5-15.5)
--- NOTE | 2019-04-01 10:55 | P.PN ---
Subjective Progress Note Date: 04/01/19 Family meeting between oncology , patient /family this a.m. pending. Significant edema of left arm. DVT prophylaxis in place with heparin subcu, which patient has been declining. Doppler performed reporting DVT of Left subclavian, both brachial and axillary veins, with superficial venous thrombosis in the basilic vein. Further review CT per radiologist's reporting, possible right-sided PE. Further oncology recommendations regarding anticoagulation pending. Afebrile, normal WBC, mild tachycardia.VSS. Maintaining O2 sats in the 90s on room air. 03/31/2019 maintained on Decadron .continues to have headaches, in addition to dizziness, nausea, increased weakness with difficulty ambulating and getting out of bed. Reports lightheadedness, dizziness with standing. Met with oncology radiologist. Patient and family have decided to go with hospice. Informational hospice meeting scheduled for this morning when family arrives. 04/01/2019 informational hospice meeting pending. Vital signs stable. Maintaining O2 sats in the 90s on 4 L nasal cannula. Pain controlled. Objective - Vital Signs Vital signs: Vital Signs Temp 98.0 F 04/01/19 05:00 Pulse 112 H 04/01/19 07:44 Resp 20 04/01/19 05:00 BP 127/77 04/01/19 05:00 Pulse Ox 94 L 04/01/19 05:00 Intake & Output 03/31/19 04/01/19 04/01/19 18:59 06:59 18:59 Intake Total 242.758 948.197 Balance 242.758 948.197 Weight 77.111 kg Intake: Intake, IV Titration 212.758 208.197 Amount Heparin Sod,Pork in 0.45% 212.758 208.197 NaCl 25,000 unit In 0.45 % NaCl 1 250ml.bag @ 12 UNITS/KG/HR 9.253 mls/hr IV .Q24H [facility] Rx#: [id number] Oral 30 740 Other: Voiding Method Bedside Commode Bedside Commode Bedside Commode Diaper Diaper Diaper Incontinent Incontinent Incontinent # Voids 1 0 - Exam PHYSICAL EXAM: VITAL SIGNS: As above GENERAL: Sitting up in bed, no acute distress, respiratory efforts increased. HEENT: Conjunctivae normal. eyes normal. Left medial supraclavicular lymphadenopathy NECK: No JVD. CARDIOVASCULAR: S1, S2 regular. No murmur RESPIRATION: Breath sounds diminished in the bases, more so on the left side. Scattered rhonchi, crackles and expiratory wheezing. ABDOMEN: Soft, minimally distended, diffuse tenderness .No guarding. no masses palpable. Bowel sounds heard. LEGS: No edema. no swelling. PSYCHIATRY: Alert and oriented X3, mood and affect normal. NERVOUS SYSTEM: Cranial N 2-12 grossly normal. Moves all 4 limbs. Diffuse weakness ,No focal deficits. - Labs CBC & Chem 7: 04/01/19 07:35 03/31/19 07:28 Labs: Abnormal Lab Results - Last 24 Hours (Table) 03/31/19 03/31/19 03/31/19 Range/Units 11:26 15:26 17:08 WBC (3.8-10.6) k/uL Neutrophils # (1.3-7.7) k/uL Lymphocytes # (1.0-4.8) k/uL Basophils # (0-0.2) k/uL APTT 46.1 H (22.0-30.0) sec POC Glucose (mg/dL) 167 H 167 H (75-99) mg/dL Lipase (23-300) U/L 03/31/19 03/31/19 04/01/19 Range/Units 20:41 23:24 07:13 WBC (3.8-10.6) k/uL Neutrophils # (1.3-7.7) k/uL Lymphocytes # (1.0-4.8) k/uL Basophils # (0-0.2) k/uL APTT 53.7 H (22.0-30.0) sec POC Glucose (mg/dL) 151 H 161 H (75-99) mg/dL Lipase (23-300) U/L 04/01/19 04/01/19 04/01/19 Range/Units 07:35 07:35 07:35 WBC 14.0 H (3.8-10.6) k/uL Neutrophils # 12.2 H (1.3-7.7) k/uL Lymphocytes # 0.6 L (1.0-4.8) k/uL Basophils # 0.3 H (0-0.2) k/uL APTT 50.5 H (22.0-30.0) sec POC Glucose (mg/dL) (75-99) mg/dL Lipase 387 H (23-300) U/L Microbiology - Last 24 Hours (Table) 03/28/19 15:51 Blood Culture - Preliminary Blood No Growth after 72 hours Assessment and Plan Assessment: -Acute hypoxic respiratory failure possible secondary to postobstructive pn eumonia , possibly progression of neuroendocrine tumor, poorly differentiated non-small cell CA, progressive metastatic large cell neuroendocrine carcinoma, with brain, liver metastases;metastasis of abdomen and pelvis have not been ruled out. -Possible acute COPD exacerbation in a patient with history of COPD, emphysema. -DVT of Left subclavian, both brachial and axillary veins, with superficial venous thrombosis in the basilic vein -Possible right PE -Acute pancreatitis possibly secondary to metastasis -Hyponatremia -Leukocytosis, on steroids for brain metastasis -Possible acute UTI, present on admission -Vocal cord paralysis with hoarseness -Ongoing, long-term nicotine dependence -Hypoalbuminemia with weight loss, mild to moderate protein calorie malnutrition -Status post PEG tube placement prior admission Plan: Continue on current medication regime ,monitoring and symptomatic t reatment. Maintain supportive care. Hospice meeting this morning. Continue gentle IV fluid hydration, steroids, nebulized bronchodilators, empiric antibiotics,pain management, anti-emetics . Anticoagulation at discharge as per oncology.Discharge planning progress. Prognosis guarded given multiple complex medical issues. The impression and plan of care has been dictated as directed. : I performed a history and examination of this patient, discussed the same with the dictator. I agree with the dictator's note ,documented as a scribe. Any additional findings or plans will be noted.
[2019-04-01 11:18] LABS: Glucose,Whole Blood 156 mg/dL (75-99)
--- NOTE | 2019-04-01 11:22 | CDI ---
Documentation Clarification Form Date: 04/01/2019 11:06:10 AM From: Laurie AlmeidaDotsonSILAS rodrigues, CCDS Admit Date: 03/28/2019 6:50:00 PM Patient Name: Heena Tellez Visit Number: [id number] Discharge Date: ATTENTION: The Clinical Documentation Specialists (CDI) and [facility] Coding Staff appreciate your assistance in clarifying documentation. Please respond to the clarification below the line at the bottom and electronically sign. The CDI & [facility] Coding staff will review the response and follow-up if needed. Please note: Queries are made part of the Legal Health Record. If you have any questions, please contact the author of this message via ITS. Dr. Ghanshyam Romero: The patient presented with the following: SOB & abdominal pain, intermittent nausea & vomiting, generalized weakness & tiredness. History/Risk Factors: COPD, Emphysema, possible lung CA w/mets. Per left neck mass biopsy: poorly differentiated non-small cell lung cancer consistent metastatic large cell neuroendocrine carcinoma. Brain mets. Clinical Indicators: Per the History & Physical: Presented with evidence of mild pancreatitis with abdominal pain & elevated Amylase & Lipase. SOB possibly secondary to neuroendocrine tumor, poorly differentiated non-small cell carcinoma, possibly consistent with metastatic large cell neuroendocrine carcinoma with possible sepsis. Possible postobstructive pneumonia or bronchitis, acute exacerbation COPD. VS: T 97.0*, P 106 - 110^, R 25 (sob), BP 101/82, PO 98 4Lnc LAB: WBC 12.7^, Neut 10.9^, D Dimer 6.89^, Lactic Acid 3.4^^, 2.5^^, 2.1^^. UA: cloudy, trace protein, large esterase, WBC 17^. Urine culture: Enterobacter hormaechei, Enterococcus faecium, Klebsiella pneumonia. Blood culture: neg @ 72 hours. Treatment: INH Albuterol, INH Pulmicort, INH Perforomist, IV fluid bolus, IV Zofran, IV Dilaudid, IV fluid rate 100, IV Solumedrol, IV Levaquin, IV Heparin drip. Patient has decided on hospice care as of 03/31. In your professional opinion, please clarify if these findings signify one of the following conditions, whether the condition is POA, and cause, if known: Sepsis ruled out Sepsis ruled in: o Sepsis due to: , please specify cause & organism if known. Severe Sepsis Other, please specify Unable to determine o Present on Admission: Yes or No (Last Revision: August 2017) [facility]
[2019-04-01] MEDS: ONDANSETRON 4 MG/2 ML VIAL IVP PRN (12:56)
[2019-04-01 17:13] LABS: Glucose,Whole Blood 150 mg/dL (75-99)
[2019-04-01] MEDS: LEVOFLOXACIN 500MG-D5W PMX 500 MG in DEXTROSE/WATER 1 100ML.BAG IVPB SCH (17:32)
[2019-04-01 20:01] LABS: Glucose,Whole Blood 156 mg/dL (75-99)
[2019-04-02] MEDS: methylPREDNISolone SOD SUCCI 125 MG/2 ML VIAL IV SCH ×5 (00:10→21:53)
[2019-04-02] MEDS: HEPARIN SOD,PORK IN 0.45% NACL 25,000 UNIT in 0.45% NACL 1 250ML.BAG IV SCH (00:12)
[2019-04-02 07:06] LABS: Glucose,Whole Blood 157 mg/dL (75-99)
[2019-04-02] MEDS: INSULIN ASPART (NovoLOG) 100 UNIT/ML VIAL SQ SCH ×4 (08:01→21:53)
[2019-04-02] MEDS: ONDANSETRON 4 MG/2 ML VIAL IVP PRN ×2 (08:03→16:19)
[2019-04-02 08:52] LABS: Basophils # (A) 0.3 k/uL (0-0.2); Basophils % (A) 2 %; Eosinophils % (A) 0 %; HCT 37.2 % (34.0-46.0); HGB 11.6 gm/dL (11.4-16.0); Lymphocytes # (A) 0.5 k/uL (1.0-4.8); Lymphocytes % (A) 3 %; MCH 28.9 pg (25.0-35.0); MCHC 31.1 g/dL (31.0-37.0); MCV 93.1 fL (80.0-100.0); Mean Platelet Volume 7.3; Monocytes # (A) 0.6 k/uL (0-1.0); Monocytes % (A) 4 %; Neutrophils # (A) 14.9 k/uL (1.3-7.7); Neutrophils % (A) 90 %; Platelet Count 302 k/uL (150-450); RDW 14.1 % (11.5-15.5); WBC 16.5 k/uL (3.8-10.6)
[2019-04-02] MEDS: BUDESONIDE 1 MG/2 ML NEBU INHALATION SCH ×2 (09:02→19:33)
[2019-04-02] MEDS: FORMOTEROL FUMARATE 20 MCG/2 ML NEBU INHALATION SCH ×2 (09:02→19:34)
[2019-04-02] MEDS: IPRATROPIUM-ALBUTEROL 3 ML NEB INHALATION SCH ×4 (09:02→19:33)
[2019-04-02] MEDS: PANTOPRAZOLE 40 MG TABLET PO SCH (10:21)
[2019-04-02 11:30] LABS: Glucose,Whole Blood 155 mg/dL (75-99)
[2019-04-02 13:42] VITALS: BP 112/73; TEMP 97.7
--- NOTE | 2019-04-02 14:32 | P.DS ---
Providers Date of admission: 03/28/19 18:50 Expected date of discharge: 04/02/19 Attending physician: Ghanshyam Romero Consults: 03/29/19 10:37 Consult Physician Routine Consulting Provider: Wayne Zhao Consult Reason/Comments: new dx lung brain stamach ca.was to see dr zhao yesterday in office but admt Do you want consulting provider notified?: Yes 03/30/19 09:37 Consult Physician Routine Consulting Provider: Sid Jackson Consult Reason/Comments: pancreatitis, abd pain, PEG Do you want consulting provider notified?: Yes 03/30/19 09:38 Consult Physician Routine Consulting Provider: Rajesh Duong Consult Reason/Comments: Eval for palliative RT lung, brain. Pt known Do you want consulting provider notified?: Yes Primary care physician: Ghanshyam Romero Hospital Course: Final Diagnoses: -Acute hypoxic respiratory failure possible secondary to postobstructive pneumonia , possibly progression of neuroendocrine tumor, poorly differentiated non-small cell CA, progressive metastatic large cell neuroendocrine carcinoma, with brain, liver metastases;metastasis of abdomen and pelvis have not been ruled out. -Possible acute COPD exacerbation in a patient with history of COPD, emphysema. -DVT of Left subclavian, both brachial and axillary veins, with superficial venous thrombosis in the basilic vein -Possible right PE -Acute pancreatitis possibly secondary to metastasis -Hyponatremia -Leukocytosis, on steroids for brain metastasis -Possible acute UTI, present on admission -Vocal cord paralysis with hoarseness -Ongoing, long-term nicotine dependence -Hypoalbuminemia with weight loss, mild to moderate protein calorie malnutrition -Status post PEG tube placement prior admission -No code, no CPR, no intubation -Hospice Hospital course: This is a 68-year-old female admitted with acute hypoxic respiratory failure, possibly secondary to postobstructive pneumonia, possibly progression of neuroendocrine tumor, poorly differentiated non-small cell CA, progressive metastatic large cell neuroendocrine carcinoma with brain and liver metastasis; metastasis of abdomen and pelvis have not been ruled out and multiple other medical issues. Significant edema of left arm. DVT prophylaxis in place with heparin subcu, which patient has been declining. Doppler performed reporting DVT of Left subclavian, both brachial and axillary veins, with superficial venous thrombosis in the basilic vein. Further review CT per radiologist's reporting, possible right-sided PE. Further oncology recommendations regarding anticoagulation pending. Afebrile, normal WBC, mild tachycardia.VSS. Maintaining O2 sats in the 90s on room air. 03/31/2019 maintained on Decadron .continues to have headaches, in addition to dizziness, nausea, increased weakness with difficulty ambulating and getting out of bed. Reports lightheadedness, dizziness with standing. Met with oncology radiologist. Patient and family have decided to go with hospice. Informational hospice meeting scheduled for this morning when family arrives. 04/01/2019 informational hospice meeting pending. Vital signs stable. Maintaining O2 sats in the 90s on 4 L nasal cannula. Pain controlled. Continued decline -patient with family decided to proceed with hospice after discussing options with both oncology and oncology radiologist. Patient is being discharged to [facility] in a stable condition with guarded prognosis. EXAM: GENERAL: Sitting up in bed, no acute distress CARDIOVASCULAR: S1, S2 regular. No murmur RESPIRATION: Breath sounds diminished in the bases, more so on the left side. Scattered rhonchi, crackles and expiratory wheezing. ABDOMEN: Soft, minimally distended, diffuse tenderness .No guarding. no masses palpable. Bowel sounds heard. NERVOUS SYSTEM: No focal deficits. The impression and plan of care has been dictated as directed. : I performed a history and examination of this patient, discussed the same with the dictator. I agree with the dictator's note ,documented as a scribe. Any additional findings or plans will be noted. Patient Condition at Discharge: Stable Plan - Discharge Summary Discharge Rx Participant: Yes New Discharge Prescriptions: New Ipratropium-Albuterol Nebulize [Duoneb 0.5 mg-3 mg/3 ml Soln] 3 ml INHALATION RT-QID ampul.neb Ipratropium-Albuterol Nebulize [Duoneb 0.5 mg-3 mg/3 ml Soln] 3 ml INHALATION Q4H PRN ampul.neb PRN Reason: Shortness Of Breath Or Wheezing Levofloxacin [Levaquin] 500 mg PO Q24H #5 tab HYDROcodone/APAP 5-325MG [[place] 5-325] 1 each PO Q6HR PRN #12 tab PRN Reason: Moderate Pain LORazepam [Ativan] 0.5 mg SL Q8H 3 Days #9 tab Atropine Ophth Soln 1% 5Ml [Isopto Atropine 1% 5Ml] 2 drop SUBLINGUAL Q4H PRN #1 bottle PRN Reason: Secretions MORPHINE ORAL VONDA CONC 20mg/mL [Roxanol Oral Soln Conc 20MG/ML] 10 mg SL Q4H PRN 3 Days #9 ml PRN Reason: Pain Ondansetron HCl [Zofran Oral Soln] 4 mg PO Q6H PRN #1 bottle PRN Reason: Nausea Continue Fluticasone Propion/Salmeterol [[place] 250-50 Inhub] 1 puff INHALATION RT-BID Dexamethasone [Hexadrol] See Taper PO DIRECTED Discontinued Albuterol Inhaler [Ventolin Hfa Inhaler] 2 puff INHALATION RT-QID Albuterol Nebulized [Ventolin Nebulized] 2.5 mg INHALATION RT-TID Discharge Medication List Dexamethasone [Hexadrol] See Taper PO DIRECTED 03/28/19 [History] Fluticasone Propion/Salmeterol [[place] 250-50 Inhub] 1 puff INHALATION RT-BID 03/28/19 [History] Atropine Ophth Soln 1% 5Ml [Isopto Atropine 1% 5Ml] 2 drop SUBLINGUAL Q4H PRN #1 bottle 04/02/19 [Rx] HYDROcodone/APAP 5-325MG [[place] 5-325] 1 each PO Q6HR PRN #12 tab 04/02/19 [Rx] Ipratropium-Albuterol Nebulize [Duoneb 0.5 mg-3 mg/3 ml Soln] 3 ml INHALATION Q4H PRN ampul.neb 04/02/19 [Rx] Ipratropium-Albuterol Nebulize [Duoneb 0.5 mg-3 mg/3 ml Soln] 3 ml INHALATION RT-QID ampul.neb 04/02/19 [Rx] LORazepam [Ativan] 0.5 mg SL Q8H 3 Days #9 tab 04/02/19 [Rx] Levofloxacin [Levaquin] 500 mg PO Q24H #5 tab 04/02/19 [Rx] MORPHINE ORAL VONDA CONC 20mg/mL [Roxanol Oral Soln Conc 20MG/ML] 10 mg SL Q4H PRN 3 Days #9 ml 04/02/19 [Rx] Ondansetron HCl [Zofran Oral Soln] 4 mg PO Q6H PRN #1 bottle 04/02/19 [Rx] Follow up Appointment(s)/Referral(s): Ghanshyam Romero DO [Primary Care Provider] - As Needed [facility], [NON-STAFF] - Patient Instructions/Handouts: Pancreatitis (ED) Activity/Diet/Wound Care/Special Instructions: [facility]. Anticoagulation as per oncology. Discharge Disposition: HOME WITH HOSPICE
--- NOTE | 2019-04-02 15:28 | P.PN ---
Subjective Progress Note Date: 04/02/19 Principal diagnosis: Metastatic large cell neuroendocrine tumor Patient is drowsy, no evidence to suggest she is having difficulty in breathing or pain. Objective - Vital Signs Vital signs: Vital Signs Temp 97.7 F 04/02/19 13:00 Pulse 115 H 04/02/19 13:00 Resp 19 04/02/19 13:00 BP 112/73 04/02/19 13:00 Pulse Ox 96 04/02/19 13:00 Intake & Output 04/01/19 04/02/19 04/02/19 18:59 06:59 18:59 Intake Total 91.761 1358.239 199.715 Output Total 400 Balance 91.761 1358.239 -200.285 Weight 77.111 kg Intake: Intake, IV Titration 91.761 158.239 199.715 Amount Heparin Sod,Pork in 0.45% 91.761 158.239 199.715 NaCl 25,000 unit In 0.45 % NaCl 1 250ml.bag @ 12 UNITS/KG/HR 9.253 mls/hr IV .Q24H [facility] Rx#: [id number] Oral 1200 Output: Urine 400 Other: Voiding Method Bedside Commode Bedside Commode Bedside Commode Diaper Diaper Diaper Incontinent Incontinent Incontinent # Voids 3 1 2 # Bowel Movements 1 - Constitutional General appearance: Present: average body habitus - EENT Eyes: Present: anicteric sclerae, EOMI - Respiratory Details: Respirations unlabored - Cardiovascular Details: Pale, dry skin - Labs CBC & Chem 7: 04/02/19 07:52 03/31/19 07:28 Labs: Abnormal Lab Results - Last 24 Hours (Table) 04/01/19 04/01/19 04/02/19 Range/Units 17:12 19:59 06:59 WBC (3.8-10.6) k/uL Neutrophils # (1.3-7.7) k/uL Lymphocytes # (1.0-4.8) k/uL Basophils # (0-0.2) k/uL APTT (22.0-30.0) sec POC Glucose (mg/dL) 150 H 156 H 157 H (75-99) mg/dL 04/02/19 04/02/19 04/02/19 Range/Units 07:52 10:39 11:15 WBC 16.5 H (3.8-10.6) k/uL Neutrophils # 14.9 H (1.3-7.7) k/uL Lymphocytes # 0.5 L (1.0-4.8) k/uL Basophils # 0.3 H (0-0.2) k/uL APTT 50.9 H (22.0-30.0) sec POC Glucose (mg/dL) 155 H (75-99) mg/dL Microbiology - Last 24 Hours (Table) 03/28/19 15:51 Blood Culture - Preliminary Blood No Growth after 96 hours Assessment and Plan (1) Large cell neuroendocrine carcinoma Narrative/Plan: Patient is going to be discharged to hospice care today. Current Visit: Yes Status: Acute Priority: High Code(s): C7A.8 - OTHER MALIGNANT NEUROENDOCRINE TUMORS SNOMED Code(s): 538090467 (2) Deep vein thrombosis (DVT) of left upper extremity Narrative/Plan: We were asked to revisit the patient for anticoagulation recommendations. Have recommended L a course, loading dose of 10 mg by mouth twice a day 7 days then 5 mg by mouth twice a day. Noted and discharge medication record. Current Visit: Yes Status: Acute Priority: High Code(s): I82.622 - ACUTE EMBOLISM AND THROMBOSIS OF DEEP VEINS OF L UP EXTREM SNOMED Code(s): 260289850
[2019-04-02] MEDS ORDERED: LEVOFLOXACIN 500 MG TAB PO SCH (16:00)
[2019-04-02] MEDS: APIXABAN 5 MG TAB PO SCH ×2 (16:19→21:53)
[2019-04-02] MEDS: HYDROmorphone 0.5 MG/0.5 ML SYRINGE IVP PRN (23:38)
[2019-04-03] MEDS ORDERED: ACETAMINOPHEN SUPPOSITORY 650 MG SUPP RECTAL PRN (02:38)
[2019-04-03] MEDS ORDERED: MORPHINE SULFATE 2 MG/ML SYRINGE IV PRN (02:38)
[2019-04-03] MEDS ORDERED: METOCLOPRAMIDE 5 MG/ML 2 ML VIAL IVP PRN (02:38)
[2019-04-03] MEDS ORDERED: MORPHINE SULFATE 4 MG/ML SYRINGE IV PRN (02:38)
[2019-04-03] MEDS ORDERED: LORazepam 2 MG/ML INJ IV PRN (02:38)
[2019-04-03] MEDS ORDERED: SCOPOLAMINE 1.5MG/72HR PATCH TRANSDERM SCH (02:45)
[2019-04-03] MEDS: HYDROmorphone 1 MG/ML 1 ML SYRINGE IVP PRN ×5 (03:20→19:20)
[2019-04-03] MEDS: BUDESONIDE 1 MG/2 ML NEBU INHALATION SCH ×2 (08:36→19:17)
[2019-04-03] MEDS: IPRATROPIUM-ALBUTEROL 3 ML NEB INHALATION SCH ×4 (08:36→19:17)
[2019-04-03] MEDS: FORMOTEROL FUMARATE 20 MCG/2 ML NEBU INHALATION SCH ×2 (08:36→19:17)
[2019-04-04] MEDS: HYDROmorphone 1 MG/ML 1 ML SYRINGE IVP PRN ×5 (00:14→19:44)
[2019-04-04 02:27] VITALS: PULSE 112
[2019-04-04 05:11] VITALS: RESP 8
[2019-04-04] MEDS: IPRATROPIUM-ALBUTEROL 3 ML NEB INHALATION SCH ×3 (08:02→15:28)
[2019-04-04] MEDS: FORMOTEROL FUMARATE 20 MCG/2 ML NEBU INHALATION SCH (08:02)
[2019-04-04] MEDS: BUDESONIDE 1 MG/2 ML NEBU INHALATION SCH (08:02)
--- NOTE | 2019-04-04 15:25 | P.PN ---
Subjective This is present in care of the patient, covering for Dr. Romero This is a 68 years old female who is lying in bed and responsive and family at bedside, patient is already on comfort care measures and hospice as per Dr. Romero team, patient is under care of [facility] yesterday by Dr. Romero team after discussing the case with oncology team. Today family at bedside confirmed to me patient is hospice currently. Patient is unresponsive, she was tachypneic last night however she is more comfortable this morning. She has metastatic large cell neuroendocrine carcinoma with metastasis to the brain liver, and possible abdomen and pelvis Objective - Vital Signs Vital signs: Vital Signs Temp 97.7 F 04/02/19 13:00 Pulse 112 H 04/04/19 00:00 Resp 8 L 04/04/19 05:10 BP 112/73 04/02/19 13:00 Pulse Ox 95 04/02/19 15:58 Intake & Output 04/03/19 04/04/19 04/04/19 18:59 06:59 18:59 Intake Total 0 Output Total 400 Balance -400 Intake: Oral 0 Output: Urine 400 Other: Voiding Method Diaper Diaper Incontinent Incontinent # Voids 1 0 2 # Bowel Movements 1 0 - Exam -GENERAL: The patient is unresponsive, not looking distress HEENT: Pupils are round and equally reacting to light. EOMI. No scleral icterus. No conjunctival pallor. Normocephalic, atraumatic. No pharyngeal erythema. No thyromegaly. CARDIOVASCULAR: S1 and S2 present. No murmurs, rubs, or gallops. -PULMONARY: Chest is clear to auscultation, no wheezing or crackles. ABDOMEN: Soft, nontender, nondistended, normoactive bowel sounds. No palpable organomegaly. MUSCULOSKELETAL: No joint swelling or deformity. EXTREMITIES: No cyanosis, clubbing, or pedal edema. NEUROLOGICAL: Gross neurological examination did not reveal any focal deficits. SKIN: No rashes. no petechiae. - Labs CBC & Chem 7: 04/02/19 07:52 03/31/19 07:28 Labs: Microbiology - Last 24 Hours (Table) 03/28/19 15:51 Blood Culture - Final Blood No Growth after 144 hours Assessment and Plan Assessment: -metastatic large cell neuroendocrine carcinoma with metastasis to the brain liver, and possible abdomen and pelvis -Possible acute COPD exacerbation, patient is breathing nonlabored currently -DVT of the left subclavian, both brachial and axillary veins, with superficial venous thrombosis in the basilic vein -Possible right PE -Acute pancreatitis possibly secondary to metastasis -Hyponatremia -Leukocytosis, on steroids for brain metastasis -Possible acute UTI, present on admission -Vocal cord paralysis with hoarseness -Ongoing, long-term nicotine dependence -Hypoalbuminemia with weight loss, mild to moderate protein calorie malnutrition -Status post PEG tube placement prior admission -No code, no CPR, no intubation -Hospice Plan: Continue with hospice and hospice care/comfort care measures. Discussed with family and staff at bedside
[2019-04-04] MEDS: ATROPINE OPHTH SOLN 1% 5ML BTL SUBLINGUAL PRN ×2 (16:14→19:44)
== END 2019-04-04 23:40 | disposition expired | DRG 843 ==
LOC: EC 15:22 → 3NMEDONC 18:50
PROVIDERS: ADMIT Family Medicine; ATTEND Family Medicine
DX: C7A.8 Other malignant neuroendocrine tumors (principal); I26.99 Other pulmonary embolism without acute cor pulmonale; J96.01 Acute respiratory failure with hypoxia; K85.90 Acute pancreatitis without necrosis or infection, unspecified; R40.2214 Coma scale, best verbal response, none, 24 hours or more after hospital admission; R40.2314 Coma scale, best motor response, none, 24 hours or more after hospital admission; R40.2114 Coma scale, eyes open, never, 24 hours or more after hospital admission; J18.8 Other pneumonia, unspecified organism; E44.0 Moderate protein-calorie malnutrition; E87.1 Hypo-osmolality and hyponatremia; I82.622 Acute embolism and thrombosis of deep veins of left upper extremity; I82.B12 Acute embolism and thrombosis of left subclavian vein; N39.0 Urinary tract infection, site not specified; I82.A12 Acute embolism and thrombosis of left axillary vein; I82.612 Acute embolism and thrombosis of superficial veins of left upper extremity; Z51.5 Encounter for palliative care; Z66 Do not resuscitate; C7B.8 Other secondary neuroendocrine tumors; J38.00 Paralysis of vocal cords and larynx, unspecified; J43.9 Emphysema, unspecified; Z90.49 Acquired absence of other specified parts of digestive tract; Z93.1 Gastrostomy status; Z99.81 Dependence on supplemental oxygen; R00.0 Tachycardia, unspecified; Z88.0 Allergy status to penicillin; Z91.041 Radiographic dye allergy status; Z91.012 Allergy to eggs; Z79.01 Long term (current) use of anticoagulants; Z79.899 Other long term (current) drug therapy; Z79.52 Long term (current) use of systemic steroids; Z79.51 Long term (current) use of inhaled steroids; Z87.891 Personal history of nicotine dependence
CPT/HCPCS: 36415; 71046; 71275; 80053; 81001; 82150; 83605; 83690; 83735; 84484; 85025; 85379; 85610; 85730; 87040; 87077; 87086; 87186; 93005; 94640; 94760; 96361; 96374; 96375; 99285